=== PATIENT | male | born 1950 | race Caucasian/White ===

== ENCOUNTER 2020-09-28 13:02 | Outpatient (REF) | payer MEDICARE, SELFPAY ==
[2020-09-28 14:44] LABS: Hematocrit 44.2 % (42-52); Hemoglobin 15.1 g/dl (14.0-18.0); Mean Corpuscular HGB Conc 34.2 g/dl (31.0-36.0); Mean Corpuscular Volume 93.6 fL (80-98); Mean Platelet Volume 10.6 fL (9.4-12.4); Platelet Count 218 X10*3/uL (160-400); Red Blood Count 4.72 X10*6/uL (4.60-5.80); Red Cell Distribution Width 13.4 % (11.0-16.0); White Blood Count 5.8 X10*3/uL (4.8-10.8)
[2020-09-28 15:18] LABS: Anion Gap 14 (12-20); Blood Urea Nitrogen 20 mg/dL (9-16); Calcium 9.4 mg/dL (8.4-10.2); Carbon Dioxide 23 mmol/L (22-29); Chloride 106 mmol/L (96-108); Estimated Glomerular Filt Rate > 60; Glucose Random 80 mg/dL (60-115); Potassium 4.5 mmol/l (3.3-5.1); Sodium 138 mmol/L (135-145)
== END 2020-09-28 13:03 | disposition home or self-care (01) ==
LOC: HO.LAB 13:02
PROVIDERS: PCP Internal Medicine; Visit Provider Internal Medicine Cardiovascular Disease
DX: I48.20 Chronic atrial fibrillation, unspecified (principal); I35.1 Nonrheumatic aortic (valve) insufficiency; I10 Essential (primary) hypertension; I71.2 Thoracic aortic aneurysm, without rupture; Z79.899 Other long term (current) drug therapy
CPT/HCPCS: 36415; 80048; 85027; 93005; 99212

== ENCOUNTER 2020-12-10 09:30 | Outpatient (REF) | payer MEDICARE, SELFPAY ==
[2020-12-10 10:51] LABS: Anion Gap 12 (12-20); Blood Urea Nitrogen 26 mg/dL (9-16); Calcium 9.3 mg/dL (8.4-10.2); Carbon Dioxide 28 mmol/L (22-29); Chloride 106 mmol/L (96-108); Estimated Glomerular Filt Rate > 60; Glucose Random 98 mg/dL (60-115); Potassium 4.5 mmol/L (3.3-5.1); Sodium 141 mmol/L (135-145)
[2020-12-10 11:15] LABS: Prostate Specific Antigen 2.86 ng/mL (<0.05-4.0)
== END 2020-12-10 09:31 | disposition home or self-care (01) ==
LOC: HO.LAB 09:30
PROVIDERS: PCP Internal Medicine; Visit Provider Physician Assistant Surgical
DX: N40.0 Benign prostatic hyperplasia without lower urinary tract symptoms (principal); Z12.5 Encounter for screening for malignant neoplasm of prostate
CPT/HCPCS: 36415; 80048; 84153

== ENCOUNTER → 2021-04-04 08:22 | Outpatient (REF) | payer MEDICARE, SELFPAY ==
--- NOTE | 2021-04-04 08:25 | CA_ITS ---
Transthoracic Echocardiogram Patient (Last, First, Middle): Eric Ferreira, Gender: Male Date of : 1950 Age: 71 Procedure Date: 04/04/2021 Procedure Type: Transthoracic Echocardiogram Location: OP Height: 180.34 cm Weight: 88.45 kg BSA: 2.09 m2 Heart Rate: bpm BP: 125 / 78 mmHg Wine Fermenter: Michaela MD: Jose Carnes MD Compensation Associate: Jose Carnes MD Symptoms: I35.1 - Nonrheumatic aortic (valve) insufficiency Study Quality: Good ECG Rhythm: Atrial Fibrillation Conclusions: - 1. Normal LV systolic function with moderate LVH 2. Severely dilated left atrium 3. Moderate aortic regurgitation 4. Moderately dilated ascending aorta at 5 cm 5. Normal RV systolic pressure 6. No pericardial effusion Findings Left Ventricle Normal left ventricular size and systolic function. There is moderately increased left ventricular wall thickness. The visually estimated ejection fraction is between 55-60%. Diastolic function is indeterminate on the basis of available data. Right Ventricle Normal right ventricular cavity size and systolic function. Atria The left atrium is severely dilated. There is no evidence of interatrial shunt. The right atrium is moderately dilated. Aortic Valve The aortic valve structure and function is likely normal. There is no aortic valve stenosis. There is moderate aortic valve regurgitation. Mitral Valve There is mild anterior and posterior mitral leaflet thickening. There is mild to moderate mitral valve regurgitation. There is no mitral valve stenosis. Pulmonic Valve The pulmonic valve was not well visualized. Tricuspid Valve Likely normal tricuspid valve structure and function. There is mild tricuspid valve regurgitation. The right ventricular systolic pressure is normal. The right ventricular systolic pressure is 34 mmHg. Great Vessels The pulmonary artery was not well visualized. There is moderate dilatation of the ascending aorta measuring 5.00 cm. Venous The inferior vena cava is normal in size and collapses greater than 50% with inspiration. Pericardium/Pleural There is no evidence of pericardial effusion. Prior Study Comparison Changes noted compared to prior study dated: 03/09/2020. Ascending aorta is further dilated at 5 cm Measurements 2D Linear Measurements RVIDd: 3.30 RVIDd Index: 1.58 IVSd: 1.37 0.6-0.9/0.6-1.0 cm LVIDd: 6.03 3.9-5.3/4.2-5.9 cm LVIDd Index: 2.89 2.4-3.2/2.2-3.1 cm/m2 LVIDs: 4.43 2.0-3.6 cm LVPWd: 1.59 0.7-1.1 cm Ao Root: 4.50 2.1-3.5 cm LA Diam: 5.50 2.7-3.8/3.0-4.0 cm LAIDs Index: 2.63 1.5-2.3 cm/m2 LV Mass: 527.61 67-162/88-224 g LV Mass Index: 252.44 43-95/49-115 g/m2 LVOT Diam: 2.30 3.0+(-)1.3 cm 2D Systolic Function EF 4C: 60.90 >55% EF 2C: 44.70 >55% EF BiP: 53.10 >55% Mitral Valve MR Vol - PW Dopp: 21.36 MR VTI: 1.78 MR ERO: 12.00 MR Alias Darrel: 0.38 MR RAD: 0.50 Aortic Valve AoV Pk Darrel: 1.39 AoV Mn Darrel: 0.90 AoV VTI: 0.27 AoV Pk Grad: 8.00 Aov Mn Grad: 4.00 MARYBETH Cont.VTI: 3.47 AI Pk Darrel: 4.69 AI [place]: 2.28 LVOT LVOT Pk Darrel: 0.97 LVOT Mn Darrel: 0.69 LVOT VTI: 0.23 LVOT Pk Grad: 4.00 LVOT Mn Grad: 2.00 LVOT Diam: 2.30 LVOT Area: 4.15 Tricuspid Valve TR Pk Darrel: 2.78 TR Pk Grad: 31.00 RA Press: 3.00 RVSP: 34.00 Great Vessels Aorta Ao Root-2D: 4.50 2.0-3.7 cm Ao Asc: 5.00 2.1-3.4 cm Ao Arch: 3.40 Updated in Other Vendor System with Status of Final Jose Carnes MD electronically signed on 04/04/2021 5:53:49 PM with status of Final
== END ==
LOC: HO.CARD 08:22
PROVIDERS: Visit Provider Internal Medicine Cardiovascular Disease
DX: I35.1 Nonrheumatic aortic (valve) insufficiency (principal); I71.2 Thoracic aortic aneurysm, without rupture; I48.20 Chronic atrial fibrillation, unspecified
CPT/HCPCS: 93306

== ENCOUNTER 2021-04-11 08:43 | Outpatient (REF) | payer MEDICARE, SELFPAY ==
[2021-04-11 10:16] LABS: Anion Gap 13 (12-20); Blood Urea Nitrogen 28 mg/dL (9-16); Calcium 9.5 mg/dL (8.4-10.2); Carbon Dioxide 25 mmol/L (22-29); Chloride 106 mmol/L (96-108); Estimated Glomerular Filt Rate > 60; Glucose Random 100 mg/dL (60-115); Potassium 4.6 mmol/L (3.3-5.1); Sodium 139 mmol/L (135-145)
== END 2021-04-11 08:44 | disposition home or self-care (01) ==
LOC: HO.LAB 08:43
PROVIDERS: PCP Internal Medicine; Visit Provider Internal Medicine Cardiovascular Disease
DX: I71.2 Thoracic aortic aneurysm, without rupture (principal)
CPT/HCPCS: 36415; 80048

== ENCOUNTER 2021-04-15 08:07 | Outpatient (REF) | payer MEDICARE, SELFPAY ==
--- NOTE | ~2021-04-15 | CT_ITS ---
EXAMINATION: CT ANGIOGRAM CHEST CLINICAL INFORMATION: Thoracic aortic aneurysm. COMPARISON: None TECHNIQUE: Multiple axial images were obtained through the chest after the administration of 70 mL of Omnipaque 350 intravenous contrast. Extensive vascular post-processing including two-dimensional and three-dimensional reformatted images were created and reviewed on an independent workstation. This CT examination was performed using dose optimization techniques as appropriate, variously including the following: *Automated exposure control *Adjustment of mA and/or kV according to patient size (this includes techniques or standardized protocols for targeted exams where dose is matched to indication/reason for exam; i.e. extremities or head) *Use of iterative reconstruction technique DLP: 201 mGy-cm FINDINGS: The lungs are well expanded and clear of acute pneumonic process. No pulmonary nodule, mass or ground-glass density seen. There is a focal ill-defined opacity measuring 7 mm with adjacent plate-like atelectasis in the left lung base on axial image 416/9. The heart size is within normal limits. There is no pericardial effusion. The ascending aorta measures 4.7 x 4.8 cm on axial image 30/5, at the level of arch. Previously it measured 4.56 x 4.56 cm. There is a three-vessel branching arch with mild atherosclerosis at the origins of left subclavian and right brachiocephalic veins. Along the undersurface of the arch is a small outpouching, likely focal dissection/aneurysm. It is stable. It is less likely to represent duct diverticulum. The descending thoracic aorta is of normal caliber. Visualized upper abdominal aorta is normal caliber. The trachea and bronchial airways are patent. The thyroid lobes are symmetrical and normal. No abnormal-sized mediastinal or hilar lymph node or mass seen. There is no pericardial effusion. There is minimal coronary artery calcification. Imaging through the upper abdomen reveals visualized liver, spleen, pancreas and bilateral adrenal glands are unremarkable. Bone windows reveal no lytic or sclerotic process. There is mild ventral spondylosis mid and lower dorsal spine. CT/CT angio chest IMPRESSION: Known ascending aortic aneurysm as described above with minimal increase in size. Unusual bump along the undersurface of the thoracic arch likely a small dissection/flap from previous trauma. It is stable.
[2021-04-15] MEDS: iohexoL 350 MG/ML 100 ML INFUS..BTL IV (09:01)
== END 2021-04-15 08:08 | disposition home or self-care (01) ==
LOC: HO.CT 08:07
PROVIDERS: Visit Provider Internal Medicine Cardiovascular Disease
DX: I71.2 Thoracic aortic aneurysm, without rupture (principal)
CPT/HCPCS: 71275; Q9967

== ENCOUNTER → 2021-04-18 09:39 | Outpatient (BNVA) | payer MEDICARE, SELFPAY | PROVIDERS: PCP Internal Medicine; Referring Provider Internal Medicine; Visit Provider Internal Medicine Cardiovascular Disease | DX: I48.20 Chronic atrial fibrillation, unspecified (principal); I71.2 Thoracic aortic aneurysm, without rupture; I35.1 Nonrheumatic aortic (valve) insufficiency | CPT/HCPCS: 99212 ==

== ENCOUNTER 2021-04-20 07:43 | Outpatient (REF) | payer MEDICARE, SELFPAY ==
[2021-04-20 09:09] LABS: Alanine Aminotransferase 28 U/L (0-40); Aspartate Amino Transferase 24 U/L (5-37); Cholesterol 143 mg/dL; HDL Cholesterol 42 mg/dL; LDL Cholesterol Calculated 83 mg/dl; Triglycerides 94 mg/dL
== END 2021-04-20 07:44 | disposition home or self-care (01) ==
LOC: HO.LAB 07:43
PROVIDERS: PCP Internal Medicine; Visit Provider Nurse Practitioner Family
DX: I71.2 Thoracic aortic aneurysm, without rupture (principal)
CPT/HCPCS: 36415; 80061; 84450; 84460

== ENCOUNTER 2021-06-03 19:28 | Emergency (ER) | payer MEDICARE, SELFPAY | END 2021-06-03 21:08 | disposition left against medical advice (07) | PROVIDERS: Emergency Provider Emergency Medicine; PCP Internal Medicine | DX: R10.9 Unspecified abdominal pain (principal) ==

== ENCOUNTER 2021-10-03 09:20 | Outpatient (REF) | payer MEDICARE, SELFPAY ==
[2021-10-03 11:23] LABS: Anion Gap 9 (12-20); Blood Urea Nitrogen 18 mg/dL (9-16); Calcium 9.9 mg/dL (8.4-10.2); Carbon Dioxide 29 mmol/L (22-29); Chloride 107 mmol/L (96-108); Estimated Glomerular Filt Rate > 60; Glucose Random 85 mg/dL (60-115); Potassium 4.3 mmol/L (3.3-5.1); Sodium 141 mmol/L (135-145)
== END 2021-10-03 09:21 | disposition home or self-care (01) ==
LOC: HO.LAB 09:20
PROVIDERS: PCP Internal Medicine; Referring Provider Internal Medicine; Visit Provider Internal Medicine Cardiovascular Disease
DX: I48.20 Chronic atrial fibrillation, unspecified (principal); I71.2 Thoracic aortic aneurysm, without rupture
CPT/HCPCS: 36415; 80048; 93005; 99212

== ENCOUNTER 2021-11-29 09:04 | Outpatient (REF) | payer MEDICARE, SELFPAY ==
[2021-11-29 10:54] LABS: Prostate Specific Antigen 2.91 ng/mL (<0.05-4.0)
== END 2021-11-29 09:05 | disposition home or self-care (01) ==
LOC: HO.LAB 09:04
PROVIDERS: PCP Internal Medicine; Visit Provider Physician Assistant Surgical
DX: Z12.5 Encounter for screening for malignant neoplasm of prostate (principal); N40.1 Benign prostatic hyperplasia with lower urinary tract symptoms
CPT/HCPCS: 36415; 84153

== ENCOUNTER → 2022-03-23 10:30 | Outpatient (REF) | payer MEDICARE, SELFPAY ==
--- NOTE | 2022-03-23 10:33 | CA_ITS ---
Transthoracic Echocardiogram Patient (Last, First, Middle): Eric Ferreira, Gender: Male Date of : 1950 Age: 72 Procedure Date: 03/23/2022 Procedure Type: Transthoracic Echocardiogram Location: OP Height: 180.34 cm Weight: 88.45 kg BSA: 2.09 m2 Heart Rate: bpm BP: 124 / 72 mmHg Lead Network Architect: COLBY Referring MD: Jose Carnes MD Weaver Wire Loom: Jose Carnes MD Symptoms: I71.2 - Thoracic aortic aneurysm, without rupture Study Quality: Fair ECG Rhythm: Atrial Fibrillation Conclusions: - 1. Normal LV systolic function with moderate LVH 2. Severely dilated left atrium 3. Moderately dilated ascending aorta at 5 cm 4. Moderate aortic regurgitation mild mitral regurgitation 5. Normal RV systolic pressure 6. No pericardial effusion Findings Left Ventricle Normal left ventricular size and systolic function. There is moderately increased left ventricular wall thickness. The visually estimated ejection fraction is between 60-65%. Diastolic function is indeterminate on the basis of available data. Right Ventricle Normal right ventricular cavity size and systolic function. Atria The left atrium is severely dilated. There is no evidence of interatrial shunt. The right atrium is mildly dilated. Aortic Valve Normal aortic valve structure and function. There is no aortic valve stenosis. There is moderate aortic valve regurgitation. Mitral Valve There is mild anterior and posterior mitral leaflet thickening. There is mild mitral valve regurgitation. There is no mitral valve stenosis. Pulmonic Valve The pulmonic valve was not well visualized. There is trace to mild pulmonic valve regurgitation. Tricuspid Valve Normal tricuspid valve structure. There is mild tricuspid valve regurgitation. The right ventricular systolic pressure is normal. The right ventricular systolic pressure is 32 mmHg. Normal right atrial pressure. There is no evidence of pulmonary hypertension. Great Vessels The pulmonary artery was not well visualized. There is moderate dilatation of the ascending aorta measuring 5.00 cm. Venous The inferior vena cava is normal in size and collapses greater than 50% with inspiration. Pericardium/Pleural There is no evidence of pericardial effusion. Prior Study Comparison No significant change compared to prior study dated: 04/04/2021. Measurements 2D Linear Measurements IVSd: 1.39 0.6-0.9/0.6-1.0 cm LVIDd: 5.49 3.9-5.3/4.2-5.9 cm LVIDd Index: 2.63 2.4-3.2/2.2-3.1 cm/m2 LVIDs: 3.62 2.0-3.6 cm LVPWd: 1.59 0.7-1.1 cm LA Diam: 5.60 2.7-3.8/3.0-4.0 cm LAIDs Index: 2.68 1.5-2.3 cm/m2 LV Mass: 459.86 67-162/88-224 g LV Mass Index: 220.03 43-95/49-115 g/m2 LVOT Diam: 2.30 3.0+(-)1.3 cm 2D Systolic Function EF 4C: 64.70 >55% EF 2C: 62.20 >55% EF BiP: 64.50 >55% Aortic Valve AoV Pk Darrel: 1.13 AoV Mn Darrel: 0.87 AoV VTI: 0.23 AoV Pk Grad: 5.00 Aov Mn Grad: 3.00 MARYBETH Cont.VTI: 3.99 AI Pk Darrel: 4.64 AI Bath: 2.83 LVOT LVOT Pk Darrel: 1.05 LVOT Mn Darrel: 0.71 LVOT VTI: 0.23 LVOT Pk Grad: 4.00 LVOT Mn Grad: 2.00 LVOT Diam: 2.30 LVOT Area: 4.15 Tricuspid Valve TR Pk Darrel: 2.68 TR Pk Grad: 29.00 RA Press: 3.00 RVSP: 32.00 Great Vessels Aorta Sinus of Valsalva: 4.87 2.0-3.5 cm Ao Asc: 5.00 2.1-3.4 cm Ao Arch: 3.30 Updated in Other Vendor System with Status of Final Jose Carnes MD electronically signed on 03/23/2022 12:43:02 PM with status of Final
== END ==
LOC: HO.CARD 10:30
PROVIDERS: Visit Provider Internal Medicine Cardiovascular Disease
DX: I71.2 Thoracic aortic aneurysm, without rupture (principal)
CPT/HCPCS: 93306

== ENCOUNTER 2022-04-10 09:05 | Outpatient (REF) | payer MEDICARE, SELFPAY ==
[2022-04-10 11:08] LABS: Anion Gap 12 (12-20); Blood Urea Nitrogen 20 mg/dL (9-16); Calcium 9.2 mg/dL (8.4-10.2); Carbon Dioxide 25 mmol/L (22-29); Chloride 106 mmol/L (96-108); Estimated Glomerular Filt Rate > 60; Glucose Random 94 mg/dL (60-115); Potassium 4.6 mmol/L (3.3-5.1); Sodium 138 mmol/L (135-145)
== END 2022-04-10 09:06 | disposition home or self-care (01) ==
LOC: HO.LAB 09:05
PROVIDERS: PCP Internal Medicine; Referring Provider Internal Medicine; Visit Provider Internal Medicine Cardiovascular Disease
DX: I48.20 Chronic atrial fibrillation, unspecified (principal); I71.2 Thoracic aortic aneurysm, without rupture
CPT/HCPCS: 36415; 80048; 99212

== ENCOUNTER 2022-10-17 07:34 | Outpatient (REF) | payer MEDICARE, SELFPAY ==
[2022-10-17 09:11] LABS: Prostate Specific Antigen 1.95 ng/mL (<0.05-4.0)
== END 2022-10-17 07:35 | disposition home or self-care (01) ==
LOC: HO.LAB 07:34
PROVIDERS: PCP Internal Medicine; Visit Provider Physician Assistant
DX: Z12.5 Encounter for screening for malignant neoplasm of prostate (principal); N40.1 Benign prostatic hyperplasia with lower urinary tract symptoms
CPT/HCPCS: 36415; 84153

== ENCOUNTER → 2023-03-30 07:48 | Outpatient (REF) | payer MEDICARE, SELFPAY ==
--- NOTE | 2023-03-30 07:52 | CA_ITS ---
Transthoracic Echocardiogram Patient (Last, First, Middle): Eric Ferreira, Gender: Male Date of : 1950 Age: 73 Procedure Date: 03/30/2023 Procedure Type: Transthoracic Echocardiogram Location: OP Height: 180.34 cm Weight: 90.72 kg BSA: 2.11 m2 Heart Rate: 74 bpm BP: 128 / 74 mmHg Analytical Clerk: AFSHIN Referring MD: Jose Carnes MD Manager [employer] Fund: Jose Carnes MD Symptoms: I71.2 - Thoracic aortic aneurysm, without rupture Study Quality: Adequate ECG Rhythm: Atrial Fibrillation Conclusions: - 1. Normal LV systolic function with moderate LVH 2. Severe left atrial enlargement 3. Moderately dilated ascending aorta at 5.1 cm 4. Moderate aortic regurgitation and mild mitral regurgitation 5. Normal RV systolic pressure 6. No gross pericardial effusion Findings Left Ventricle Normal left ventricular size and systolic function. There is moderately increased left ventricular wall thickness. The visually estimated ejection fraction is between 55-60%. Diastolic function is indeterminate on the basis of available data. Right Ventricle Normal right ventricular cavity size and systolic function. Atria The left atrium is severely dilated. There is no evidence of interatrial shunt. The right atrium is moderately dilated. Aortic Valve Normal aortic valve structure and function. There is no aortic valve stenosis. There is moderate aortic valve regurgitation. Mitral Valve There is mild anterior and posterior mitral leaflet thickening. There is mild mitral valve regurgitation. There is no mitral valve stenosis. Pulmonic Valve The pulmonic valve is likely normal. There is trace pulmonic valve regurgitation. Tricuspid Valve Normal tricuspid valve structure. There is no tricuspid valve regurgitation. The right ventricular systolic pressure is normal. The right ventricular systolic pressure is 21 mmHg. Normal right atrial pressure. There is no evidence of pulmonary hypertension. Great Vessels The pulmonary artery was not well visualized. There is moderate dilatation of the ascending aorta measuring 5.10 cm. Venous The inferior vena cava is normal in size and collapses greater than 50% with inspiration. Pericardium/Pleural There is no evidence of pericardial effusion. Prior Study Comparison No significant change compared to prior study dated: 03/23/2022. Measurements 2D Linear Measurements IVSd: 1.46 0.6-0.9/0.6-1.0 cm LVIDd: 5.36 3.9-5.3/4.2-5.9 cm LVIDd Index: 2.54 2.4-3.2/2.2-3.1 cm/m2 LVIDs: 4.21 2.0-3.6 cm LVPWd: 1.51 0.7-1.1 cm LA Diam: 4.90 2.7-3.8/3.0-4.0 cm LAIDs Index: 2.32 1.5-2.3 cm/m2 LV Mass: 402.85 67-162/88-224 g LV Mass Index: 190.92 43-95/49-115 g/m2 LVOT Diam: 2.40 3.0+(-)1.3 cm 2D Systolic Function EF 4C: 44.60 >55% EF 2C: 53.50 >55% Mitral Valve MV Pk E: 0.70 Aortic Valve AoV Pk Darrel: 1.37 AoV Mn Darrel: 0.96 AoV VTI: 0.28 AoV Pk Grad: 8.00 Aov Mn Grad: 4.00 MARYBETH Cont.VTI: 3.33 AI Pk Darrel: 4.47 AI [place]: 2.45 LVOT LVOT Pk Darrel: 1.07 LVOT Mn Darrel: 0.71 LVOT VTI: 0.21 LVOT Pk Grad: 5.00 LVOT Mn Grad: 2.00 LVOT Diam: 2.40 LVOT Area: 4.52 Diastolic Function MV Pk E: 0.70 Right Ventricle TAPSE (mm): 20.00 TVS' Darrel: 8.17 Tricuspid Valve TR Pk Darrel: 2.14 TR Pk Grad: 18.00 RA Press: 3.00 RVSP: 21.00 Great Vessels Aorta Sinus of Valsalva: 4.80 2.0-3.5 cm Ao Asc: 5.10 2.1-3.4 cm Pulmonary Valve PV Pk Darrel: 0.63 Peak PV Grad: 2.00 Updated in Other Vendor System with Status of Final Jose Carnes MD electronically signed on 03/31/2023 10:35:01 AM with status of Final
== END ==
LOC: HO.CARD 07:48
PROVIDERS: PCP Internal Medicine; Visit Provider Internal Medicine Cardiovascular Disease
DX: I71.20 Thoracic aortic aneurysm, without rupture, unspecified (principal)
CPT/HCPCS: 93306

== ENCOUNTER 2023-04-16 09:21 | Outpatient (REF) | payer MEDICARE, SELFPAY ==
[2023-04-16 10:46] LABS: Hematocrit 46.3 % (42.0-52.0); Hemoglobin 15.1 g/dl (14.0-18.0); Mean Corpuscular HGB Conc 32.6 g/dl (31.0-36.0); Mean Corpuscular Hemoglobin 30.8 pg (27.0-33.0); Mean Corpuscular Volume 94.5 fL (80.0-98.0); Mean Platelet Volume 10.4 fL (9.4-12.4); Platelet Count 215 X10*3/uL (160-400); Red Cell Distribution Width 13.6 % (11.0-16.0); White Blood Count 7.9 X10*3/uL (4.8-10.8)
[2023-04-16 11:54] LABS: Anion Gap 12 (12-20); Blood Urea Nitrogen 20 mg/dL (9-16); Calcium 10.1 mg/dL (8.4-10.2); Carbon Dioxide 25 mmol/L (22-29); Chloride 106 mmol/L (96-108); Estimated Glomerular Filt Rate > 60; Glucose Random 97 mg/dL (60-115); Potassium 4.4 mmol/L (3.3-5.1); Sodium 139 mmol/L (135-145)
== END 2023-04-16 09:22 | disposition home or self-care (01) ==
LOC: HO.LAB 09:21
PROVIDERS: PCP Internal Medicine; Referring Provider Internal Medicine; Visit Provider Internal Medicine Cardiovascular Disease
DX: I48.20 Chronic atrial fibrillation, unspecified (principal); I10 Essential (primary) hypertension; I71.20 Thoracic aortic aneurysm, without rupture, unspecified
CPT/HCPCS: 36415; 80048; 85027; 93005; 99212

== ENCOUNTER 2023-09-28 09:34 | Outpatient (REF) | payer MEDICARE, SELFPAY ==
[2023-09-28 11:19] LABS: Prostate Specific Antigen 2.33 ng/mL (<0.05-4.0)
== END 2023-09-28 09:35 | disposition home or self-care (01) ==
LOC: HO.LAB 09:34
PROVIDERS: PCP Internal Medicine; Visit Provider Physician Assistant
DX: Z12.5 Encounter for screening for malignant neoplasm of prostate (principal); N40.1 Benign prostatic hyperplasia with lower urinary tract symptoms
CPT/HCPCS: 36415; 84153

== ENCOUNTER → 2024-04-10 07:46 | Outpatient (REF) | payer MEDICARE, SELFPAY ==
--- NOTE | 2024-04-10 07:49 | CA_ITS ---
Transthoracic Echocardiogram Patient (Last, First, Middle): Eric Ferreira, Gender: Male Date of : 1950 Age: 74 Procedure Date: 04/10/2024 Procedure Type: Transthoracic Echocardiogram Location: OP Height: 180.34 cm Weight: 86.18 kg BSA: 2.06 m2 Heart Rate: bpm BP: 120 / 58 mmHg Vocal Music Instructor: TO Referring MD: Jose Carnes MD Symptoms: I71.2 - Thoracic aortic aneurysm, without rupture Study Quality: Adequate ECG Rhythm: Atrial Fibrillation Conclusions: - The left ventricular systolic function is low normal. The visually estimated ejection fraction is between 50-55%. - Moderate to severe concentric left ventricular hypertrophy; severe in the septum. - Severe biatrial enlargement. - There is mild aortic valve regurgitation. - There is moderate dilatation of the sinuses of Valsalva measuring 4.91 cm, moderate dilatation of the sino tubular ridge measuring 4.86 cm, severe dilatation of the ascending aorta measuring 5.30 cm, and no dilatation of the aortic arch measuring 3.20 cm. Findings Left Ventricle Normal left ventricular cavity size. The left ventricular systolic function is low normal. The visually estimated ejection fraction is between 50-55%. There is no evidence of regional wall motion abnormalities. Diastolic function is indeterminate on the basis of available data. Moderate to severe concentric left ventricular hypertrophy; severe in the septum. Right Ventricle Mildly increased right ventricular cavity size. There is normal right ventricular systolic function. Atria Severe biatrial enlargement. Interatrial shunt cannot be excluded. Aortic Valve There is a normal trileaflet aortic valve. There is mild calcification of the aortic valve. There is no aortic valve stenosis. There is mild aortic valve regurgitation. Mitral Valve The mitral valve appears normal. There is mild mitral valve regurgitation. There is no mitral valve stenosis. Pulmonic Valve There is trace pulmonic valve regurgitation. Tricuspid Valve There is mild tricuspid valve regurgitation. There is no evidence of pulmonary hypertension. Great Vessels The aortic arch is normal in size. There is moderate dilatation of the sinuses of Valsalva measuring 4.91 cm, moderate dilatation of the sino tubular ridge measuring 4.86 cm, severe dilatation of the ascending aorta measuring 5.30 cm, and no dilatation of the aortic arch measuring 3.20 cm. Venous The inferior vena cava is mildly dilated and collapses greater than 50% with inspiration. Pericardium/Pleural There is no evidence of pericardial effusion. Prior Study Comparison Changes noted compared to prior study dated: 03/30/2023. Increase in ascending aortic size. Measurements 2D Linear Measurements IVSd: 1.92 0.6-0.9/0.6-1.0 cm LVIDd: 5.19 3.9-5.3/4.2-5.9 cm LVIDd Index: 2.52 2.4-3.2/2.2-3.1 cm/m2 LVIDs: 3.37 2.0-3.6 cm LVPWd: 1.44 0.7-1.1 cm LA Diam: 3.90 2.7-3.8/3.0-4.0 cm LAIDs Index: 1.89 1.5-2.3 cm/m2 LV Mass: 504.64 67-162/88-224 g LV Mass Index: 244.97 43-95/49-115 g/m2 LVOT Diam: 2.40 3.0+(-)1.3 cm 2D Systolic Function EF 4C: 52.30 >55% EF 2C: 56.40 >55% EF BiP: 54.20 >55% Mitral Valve MV Pk E: 0.80 MV Decel Time: 177.00 E'Lateral: 9.92 E'Medial: 5.40 E/E' Med: 14.80 E/E' Lat: 8.00 PHT: 52.00 MVA PHT: 4.23 Decel Scurry: 4.53 Aortic Valve AoV Pk Darrel: 1.22 AoV Pk Grad: 6.00 AI Pk Darrel: 4.34 AI VTI: 1.82 AI Scurry: 2.84 AI Alias Darrel: 0.33 AI RV - PISA: 71.00 ERO - PISA: 39.00 LVOT LVOT Pk Darrel: 0.93 LVOT Mn Darrel: 0.64 LVOT VTI: 0.20 LVOT Pk Grad: 3.00 LVOT Mn Grad: 2.00 LVOT Diam: 2.40 LVOT Area: 4.52 Diastolic Function MV Pk E: 0.80 E'Medial: 5.40 E/E' Med: 14.80 E' Laterial: 9.92 E/E' Lat: 8.00 Right Ventricle TAPSE (mm): 18.30 TVS' Darrel: 11.70 Tricuspid Valve TR Pk Darrel: 2.37 TR Pk Grad: 22.00 RA Press: 8.00 RVSP: 30.00 Great Vessels Aorta Sinus of Valsalva: 4.91 2.0-3.[address] Ridge: 4.86 1.7-3.4 cm Ao Asc: 5.30 2.1-3.4 cm Ao Arch: 3.20 Updated in Other Vendor System with Status of Final Berry Warner MD electronically signed on 04/12/2024 11:19:59 AM with status of Final
== END ==
LOC: HO.CARD 07:46
PROVIDERS: PCP Internal Medicine; Visit Provider Internal Medicine Cardiovascular Disease
DX: I71.20 Thoracic aortic aneurysm, without rupture, unspecified (principal)
CPT/HCPCS: 93306

== ENCOUNTER → 2024-04-10 07:49 | Outpatient (BNV) | payer MEDICARE, SELFPAY | PROVIDERS: PCP Internal Medicine; Visit Provider Internal Medicine | DX: I35.1 Nonrheumatic aortic (valve) insufficiency (principal); I34.0 Nonrheumatic mitral (valve) insufficiency; I36.1 Nonrheumatic tricuspid (valve) insufficiency; I51.7 Cardiomegaly | CPT/HCPCS: 93306 ==

== ENCOUNTER 2024-04-16 12:53 | Outpatient (AMB) | payer MEDICARE, SELFPAY ==
--- NOTE | 2024-04-16 12:57 | A.OFFVIS_ITS ---
Vital Signs 04/16/24 12:58 Height 5 ft 11 in Weight 209 lb 7.026 oz BMI 29.2 BP 120/66 Blood Pressure Location Lt brachial Position Sitting Pulse 83 Intake Visit Reasons: 1 yr fu after echo Intake Note: 1 year follow-up after echo with ekg hearts doing good Allergies amoxicillin [Augmentin] Allergy (Unknown, Verified 04/16/23 09:41) nausea and vomiting clavulanic acid [Augmentin] Allergy (Unknown, Verified 04/16/23 09:41) nausea and vomiting No Known Allergies Allergy (Verified 04/16/23 09:41) Medication List - Last Reconciled 04/16/24 by Jose Carnes MD atorvastatin 20 mg PO DAILY diltiazem HCl CD 120 mg PO DAILY 90 days finasteride 5 mg PO DAILY lisinopril 20 mg PO DAILY 90 days metoprolol tartrate 100 mg PO BID rivaroxaban (Xarelto) 20 mg PO DAILY 90 days HPI Comments Details: Eric Comes for follow-up. He has no new cardiac symptoms. Denies any exertional chest pain or worsening shortness of breath. Denies any orthopnea, PND, leg edema. Denies any lightheadedness, syncope. No prolonged palpitation irregular heartbeat. No major bleeding issues or neurologic events. Recent echocardiogram shows enlargement of his ascending aorta at 5.3 cm which is bigger than in the past. [facility] Medical History Chronic atrial fibrillation Ascending aortic aneurysm HTN (hypertension) Aortic regurgitation Surgical History History of hernia surgery History of tonsillectomy Family History Father No problems noted. Mother Diabetes Review of Systems Const Denies chills, Denies fatigue, Denies fever(s), Denies frequent falls, Denies weakness, Denies weight gain and Denies weight loss ENT Denies dizziness Card Denies chest pain, Denies leg edema, Denies lightheadedness, Denies palpitations, Denies dyspnea, Denies dyspnea on exertion, Denies orthopnea and Denies other (loss of consciousness) Resp Denies cough, Denies dyspnea and Denies dyspnea on exertion GI Denies hematochezia and Denies change in stool character Musc Denies abnormal gait, Denies muscle weakness, Denies numbness, Denies radiating pain into limb and Denies tingling Neuro Denies abnormal gait, Denies dizziness, Denies frequent falls, Denies numbness, Denies tingling and Denies weakness Endo Denies fatigue and Denies palpitations Physical Exam Vital Signs: Last Vital Signs Pulse 83 04/16/24 12:58 BP 120/66 04/16/24 12:58 BMI result Body Mass Index 29.2 Const General: cooperative, comfortable, no acute distress, alert and awake Nutritional Appearance: overweight Orientation/consciousness: patient oriented x3 Limitations: no limitations Neck Neck: Yes trachea midline, Yes supple and Yes no JVD Resp Effort & Inspection: normal respiratory effort Auscultation: clear to auscultation bilaterally Cardio Jugular venous distension: no JVD Rhythm: abnormal rhythm irregularly irregular Heart sounds: S1 normal heart sound present, S2 normal heart sound present and Murmur heart sound present diastolic blowing GI Auscultation: normal bowel sounds Skin General skin exam: no rashes or lesions noted Neuro General: patient oriented x3 and no focal motor deficits Extrem General: Yes no clubbing, cyanosis or edema Psych Appearance: grossly normal Office Procedures EKG Details: EKG shows atrial fibrillation with LVH with nonspecific ST-T changes 74104-[id number], Complete Assessment & Plan Assessment & Plan (1) Ascending aortic aneurysm: Code(s): I71.2 - Thoracic aortic aneurysm, without rupture Category: Medical Plan: Ascending aortic aneurysm with moderate to severe enlargement of the ascending aorta at 5.3 cm. Has increase in size over the last year. Will follow-up with a chest CTA aortogram. Advise management. Continue current metoprolol and Cardizem therapy. Advised to seek emergency care for sudden-onset severe chest pain. Advised to avoid any sudden strenuous isometric exercise. Will refer him to cardiac surgery for further evaluation for possible repair in near future. If the ascending aorta confirms the size below 5.5 cm will follow-up echocardiogram in 6 months time. Management was discussed with him. Thank you for allowing me to partake in his care (2) Chronic atrial fibrillation: Code(s): I48.20 - Chronic atrial fibrillation, unspecified Category: Medical Plan: Chronic rate control atrial fibrillation. Continue to pursue rate control approach. Continue full oral anticoagulation, currently on Xarelto 20 mg daily. Semi annual renal function and annual CBC should be checked. Has done well with rate control approach and likelihood of pursuing rhythm control approach is very low. Will follow up in the clinic in 6 months time, sooner p.r.n.. Thank you for allowing me to partake in his care Orders: Orders Basic Metabolic Panel Today I71.2 - Thoracic aortic aneurysm, without rupture Complete Blood Count no Diff Today I71.2 - Thoracic aortic aneurysm, without rupture CT angio chest aorta Today I71.2 - Thoracic aortic aneurysm, without rupture Coding Level of Care Code Est Pt Level 4 (88401) Diagnoses Ascending aortic aneurysm I71.2 Chronic atrial fibrillation I48.20 CPT Codes EKG - CPT: 73843-[id number], Complete ([id number])
[2024-04-16 12:58] VITALS: BP 120/66; PULSE 83; BMI 29.2
== END 2024-04-16 13:33 | disposition home or self-care (01) ==
PROVIDERS: PCP Internal Medicine; Visit Provider Internal Medicine Cardiovascular Disease
DX: I71.20 Thoracic aortic aneurysm, without rupture, unspecified (principal); I48.20 Chronic atrial fibrillation, unspecified
CPT/HCPCS: 93010; 99214

== ENCOUNTER → 2024-04-16 12:53 | Outpatient (BNVA) | payer MEDICARE, SELFPAY | PROVIDERS: PCP Internal Medicine; Visit Provider Internal Medicine Cardiovascular Disease | DX: I71.21 Aneurysm of the ascending aorta, without rupture (principal); I48.20 Chronic atrial fibrillation, unspecified | CPT/HCPCS: 93005; 99212 ==

== ENCOUNTER 2024-04-22 08:14 | Outpatient (REF) | payer MEDICARE, SELFPAY ==
[2024-04-22 09:08] LABS: Hematocrit 39.3 % (42.0-52.0); Mean Corpuscular HGB Conc 33.1 g/dl (31.0-36.0); Mean Corpuscular Hemoglobin 31.3 pg (27.0-33.0); Mean Corpuscular Volume 94.7 fL (80.0-98.0); Mean Platelet Volume 9.4 fL (9.4-12.4); Platelet Count 298 X10*3/uL (160-400); Red Blood Count 4.15 X10*6/uL (4.60-5.80); Red Cell Distribution Width 12.8 % (11.0-16.0); White Blood Count 6.1 X10*3/uL (4.8-10.8)
[2024-04-22 09:30] LABS: Anion Gap 13 (12-20); Blood Urea Nitrogen 22 mg/dL (9-16); Calcium 9.6 mg/dL (8.4-10.2); Carbon Dioxide 27 mmol/L (22-29); Chloride 105 mmol/L (96-108); Estimated Glomerular Filt Rate > 60; Glucose Random 95 mg/dL (60-115); Potassium 4.6 mmol/L (3.3-5.1); Sodium 140 mmol/L (135-145)
== END 2024-04-22 08:15 | disposition home or self-care (01) ==
LOC: HO.LAB 08:14
PROVIDERS: PCP Internal Medicine; Visit Provider Internal Medicine Cardiovascular Disease
DX: I48.20 Chronic atrial fibrillation, unspecified (principal); I71.20 Thoracic aortic aneurysm, without rupture, unspecified
CPT/HCPCS: 36415; 80048; 85027

== ENCOUNTER 2024-04-24 13:45 | Outpatient (REF) | payer MEDICARE, SELFPAY ==
--- NOTE | ~2024-04-24 | CT_ITS ---
EXAMINATION: CT ANGIOGRAM CHEST CLINICAL INFORMATION: Thoracic aortic aneurysm COMPARISON: CTA chest 04/15/2021 TECHNIQUE: Multiple axial images were obtained through the chest after the administration of 70 mL of intravenous may take. Images were evaluated on independent dedicated 3-D workstation and 3-D images were reconstructed with concurrent radiologist supervision and subsequently interpreted. This CT examination was performed using dose optimization techniques as appropriate, variously including the following: *Automated exposure control. *Adjustment of mA and/or kV according to patient size (this includes techniques or standardized protocols for targeted exams where dose is matched to indication/reason for exam, i.e., extremities or head). *Use of iterative reconstruction technique. DLP: 224 mGy-cm. FINDINGS: VASCULAR: Thoracic Aorta: The sinotubular junction measures 4.9 cm. The ascending aorta measures 4.9 cm. Prominent ductus bump versus penetrating ulcer is unchanged. Subclavian Arteries: Patent and normal in caliber Carotid and Vertebral Arteries: Patent and normal in caliber Abdominal Aorta: Normal in caliber Pulmonary arteries: Patent, normal caliber without evidence of large, central pulmonary embolus All vascular measurements obtained from 3-D reconstructed images are detailed in PACS. NON-VASCULAR: Lungs: The lungs are clear with no evidence of inflammation or nodules. Mediastinum: The mediastinum is normal. Central vascular structures are unremarkable. No hilar or mediastinal lymphadenopathy. Pericardium/Pleura: There is no significant effusion. No pleural mass or thickening. Chest Wall/Axilla: Unremarkable. Upper Abdomen: Unremarkable Osseous Structures: Unremarkable. CT/CT angio chest aorta IMPRESSION: Dilatation of the aortic root, and ascending aorta which measures 4.9 cm in diameter. This is slightly larger than 2020 when it measured up to 4.8 cm
[2024-04-24] MEDS: iohexoL 350 MG/ML 75 ML INFUS..BTL 70 ML IV (14:16)
== END 2024-04-24 13:46 | disposition home or self-care (01) ==
LOC: HO.CT 13:45
PROVIDERS: PCP Internal Medicine; Visit Provider Internal Medicine Cardiovascular Disease
DX: I71.20 Thoracic aortic aneurysm, without rupture, unspecified (principal)
CPT/HCPCS: 71275; Q9967

== ENCOUNTER 2024-07-23 01:23 | Emergency (ER) | payer MEDICARE, SELFPAY ==
[2024-07-23 01:25] VITALS: BP 174/77; PULSE 78; RESP 18; TEMP 36.8; O2SAT 98; BMI 27.2
[2024-07-23 01:50] LABS: MANUAL DIFF FLAG NO
[2024-07-23 01:52] LABS: Basophils Absolute Auto 0.1 X10*3/uL (0.0-0.2); Basophils Percent Auto 0.7 % (0-2); Eosinophils Absolute Auto 0.1 X10*3/uL (0.0-0.4); Eosinophils Percent Auto 1.4 % (0-4); Hemoglobin 14.5 g/dl (14.0-18.0); Imm Gran Abs Auto 0.04 X10*3/uL (0.00-0.03); Imm Gran Pct Auto 0.5 % (0.0-0.4); Lymphocytes Absolute Auto 2.6 X10*3/uL (1.2-4.9); Lymphocytes Percent Auto 32.4 % (20-40); Mean Corpuscular HGB Conc 33.7 g/dl (31.0-36.0); Mean Corpuscular Hemoglobin 31.3 pg (27.0-33.0); Mean Corpuscular Volume 92.9 fL (80.0-98.0); Mean Platelet Volume 9.5 fL (9.4-12.4); Monocytes Absolute Auto 0.8 X10*3/uL (0.1-1.2); Monocytes Percent Auto 9.9 % (2-11); Neutrophils Absolute Auto 4.5 x10*3/uL (2.0-8.3); Neutrophils Percent Auto 55.1 % (45-73); Platelet Count 239 X10*3/uL (160-400); Red Blood Count 4.63 X10*6/uL (4.60-5.80); Red Cell Distribution Width 13.8 % (11.0-16.0); White Blood Count 8.1 X10*3/uL (4.8-10.8)
[2024-07-23 02:18] LABS: Alanine Aminotransferase 99 U/L (0-40); Alkaline Phosphatase 104 U/L (39-117); Anion Gap 13 (12-20); Aspartate Amino Transferase 45 U/L (5-37); Bilirubin Total 0.5 mg/dL (0.0-1.0); Blood Urea Nitrogen 33 mg/dL (9-16); C Reactive Protein 0.21 mg/dL (< or = 0.50); Carbon Dioxide 27 mmol/L (22-29); Chloride 106 mmol/L (96-108); Creatinine Clr Calc Pharmacy 53.5; Estimated Glomerular Filt Rate 56; Glucose Random 97 mg/dL (60-115); Potassium 4.5 mmol/L (3.3-5.1); Sodium 141 mmol/L (135-145); Total Protein 6.4 g/dL (6.5-8.0)
[2024-07-23 02:34] VITALS: BP 176/62; PULSE 77; RESP 16; TEMP 36.9; O2SAT 98
--- NOTE | 2024-07-23 02:36 | ED.GENADULT ---
HPI - General Adult General Chief complaint: Extremity Injury, Lower Stated complaint: gout Time Seen by Provider: 07/23/24 02:30 Source: patient Mode of arrival: ambulatory Limitations: no limitations History of Present Illness ED Provider: warren BARLOW narrative: Patient's history of atrial fibrillation on Xarelto and gout been having pain in the left 1st metatarsal joint for last 1 week taken a course of prednisone for 5 days with improvement after finishing prednisone started having the pain again patient can not take NSAIDs or colchicine pain is localized to left 1st metatarsal joint with slight erythema also in the left ankle no other joints involved Related Data Previous Rx's ?Medication ?Instructions ?Recorded finasteride 5 mg tablet 5 mg PO DAILY #30 tabs 01/13/22 atorvastatin 20 mg tablet 20 mg PO DAILY #90 tabs 07/26/23 lisinopril 20 mg tablet 20 mg PO DAILY 90 days #90 tabs 10/23/23 metoprolol tartrate 100 mg tablet 100 mg PO BID #180 tabs 10/23/23 rivaroxaban 20 mg tablet (Xarelto) 20 mg PO DAILY 90 days #90 tabs 05/12/24 diltiazem HCl 120 mg 120 mg PO DAILY 90 days #90 caps 07/14/24 capsule,extended release 24 hr prednisone 10 mg tablet 10 mg PO DIRECTED #30 tabs 07/23/24 Allergies Allergy/AdvReac Type Severity Reaction Status Date / Time amoxicillin [Augmentin] Allergy Unknown nausea and Verified 07/23/24 01:30 vomiting clavulanic acid [Augmentin] Allergy Unknown nausea and Verified 07/23/24 01:30 vomiting oxycodone AdvReac Confusion Verified 07/23/24 01:30 Review of Systems Review of Systems: Yes all other systems are reviewed and are negative [facility] Past Medical History Medical History Chronic atrial fibrillation Ascending aortic aneurysm HTN (hypertension) Aortic regurgitation Surgical History History of hernia surgery History of tonsillectomy Family History Family History Father No problems noted. Mother Diabetes Social History Social History Smoked in Last 30 Days: No Use of substances other than those prescribed or required for medical reasons: No Advance Directives: Yes Advance Directives Information Provided: No Advance Directives on File: No Do you have a plan to hurt others: No Plan Physical Exam ED Vital Signs: Vital Signs - 24 hr 07/23/24 01:25 07/23/24 02:34 07/23/24 03:00 Temperature 98.2 F 98.5 F 98.5 F Pulse Rate 78 77 77 Respiratory Rate 18 16 16 Blood Pressure 174/77 H 176/62 H 176/62 H Pulse Oximetry 98 98 98 Oxygen Delivery Method Room Air Room Air Room Air BMI result Body Mass Index 27.2 Appearance: Alert. Oriented X3. No acute distress. ENT: Pharynx normal. Oral Mucosa moist Neck: Normal inspection. Neck supple. CVS: Normal heart rate and rhythm. Pulses normal. Respiratory: No respiratory distress. Equal air entry bilateral, no wheezing/rales/rhonchi Abdomen: Soft and nontender. Bowel sounds are present, Skin: Skin warm and dry. Normal skin color. Normal skin turgor. Extremities: Tenderness with redness of left 1st metatarsal joint also soft tissue swelling of left ankle no calf tenderness Neuro: Oriented X 3. No motor deficit. Medications Administered Discontinued Medications Generic Name Dose Route Start Last Admin Trade Name Erickq PRN Reason Stop Dose Admin Dexamethasone 10 mg 07/23/24 02:46 07/23/24 02:54 Dexamethasone 2 Mg Tablet PO 07/23/24 02:47 10 mg ONCE ONE Administration Medical Decision Making Medical Decision Making MDM Narrative: Patient's gouty arthritis allergic to colchicine can not take NSAIDs will give him course of prednisone Lab Data [facility] Lab Attestation statement: I reviewed the patient's lab results. 07/23/24 01:46 07/23/24 01:46 Labs: Lab Results 07/23/24 Range/Units 01:46 WBC 8.1 (4.8-10.8) X10*3/uL RBC 4.63 (4.60-5.80) X10*6/uL Hgb 14.5 (14.0-18.0) g/dl Hct 43.0 (42.0-52.0) % MCV 92.9 (80.0-98.0) fL MCH 31.3 (27.0-33.0) pg MCHC 33.7 (31.0-36.0) g/dl RDW 13.8 (11.0-16.0) % Plt Count 239 (160-400) X10*3/uL MPV 9.5 (9.4-12.4) fL Immature Gran % (Auto) 0.5 H (0.0-0.4) % Neut % (Auto) 55.1 (45-73) % Lymph % (Auto) 32.4 (20-40) % [place] % (Auto) 9.9 (2-11) % Eos % (Auto) 1.4 (0-4) % Baso % (Auto) 0.7 (0-2) % Lymph # (Auto) 2.6 (1.2-4.9) X10*3/uL [place] # (Auto) 0.8 (0.1-1.2) X10*3/uL Eos # (Auto) 0.1 (0.0-0.4) X10*3/uL Baso # (Auto) 0.1 (0.0-0.2) X10*3/uL Abs Immat Gran (auto) 0.04 H (0.00-0.03) X10*3/uL Absolute Neuts (auto) 4.5 (2.0-8.3) x10*3/uL Absolute Nucleated RBC 0.000 (0.0-0.012) X10*3/uL Nucleated RBC % (auto) 0.0 (0.0-0.2) /100WBC Sodium 141 (135-145) mmol/L Potassium 4.5 (3.3-5.1) mmol/L Chloride 106 (96-108) mmol/L Carbon Dioxide 27 (22-29) mmol/L Anion Gap 13 (12-20) BUN 33 H (9-16) mg/dL Creatinine 1.25 (0.5-1.4) mg/dL Estim Creat Clear Calc 53.5 Estimated GFR 56 Random Glucose 97 (60-115) mg/dL Uric Acid 7.4 H (3.4-7.0) mg/dL Calcium 10.0 (8.4-10.2) mg/dL Total Bilirubin 0.5 (0.0-1.0) mg/dL AST 45 H (5-37) U/L ALT 99 H (0-40) U/L Alkaline Phosphatase 104 (39-117) U/L C-Reactive Protein 0.21 (< or = 0.50) mg/dL C-React Prot High Sens Cancelled Total Protein 6.4 L (6.5-8.0) g/dL Albumin 4.0 (3.5-5.0) g/dL Discharge Plan Discharge Clinical Impression: Gouty arthritis Patient Disposition: Home, Self-Care Instructions: Low Purine Diet (ED), Gout (ED) Additional Instructions: Take prednisone tapering dose as prescribed Tylenol for pain Follow with your PCP Prescriptions: New prednisone 10 mg tablet 10 mg PO DIRECTED Qty: 30 0RF Rx Instructions: see taper instructions; 40 mg Daily x3 days, 30 mg daily x3 days, 20 mg daily x3 days, 10 mg daily x3 days No Action finasteride 5 mg tablet 5 mg PO DAILY Qty: 30 0RF Rx Instructions: [facility] atorvastatin 20 mg tablet 20 mg PO DAILY Qty: 90 3RF metoprolol tartrate 100 mg tablet 100 mg PO BID Qty: 180 3RF lisinopril 20 mg tablet 20 mg PO DAILY 90 Days Qty: 90 3RF Xarelto 20 mg tablet 20 mg PO DAILY 90 Days Qty: 90 3RF Rx Instructions: must administer with evening meal diltiazem HCl 120 mg capsule,extended release 24hr 120 mg PO DAILY 90 Days Qty: 90 3RF Interventions: ED Discharge Assessment Last Done: 07/23/24 03:00 Discharge Date/Time: 07/23/24 03:01 Print Language: Icelandic
[2024-07-23] MEDS: dexAMETHasone 2 MG TABLET 10 MG PO (02:54)
[2024-07-23 03:00] VITALS: BP 176/62; PULSE 77; RESP 16; TEMP 36.9; O2SAT 98
[2024-07-23 03:11] LABS: Uric Acid 7.4 mg/dL (3.4-7.0)
== END 2024-07-23 03:01 | disposition home or self-care (01) ==
PROVIDERS: Emergency Provider Internal Medicine; PCP Internal Medicine
DX: M10.9 Gout, unspecified (principal); M79.642 Pain in left hand; I48.20 Chronic atrial fibrillation, unspecified; I10 Essential (primary) hypertension; Z79.899 Other long term (current) drug therapy; Z79.01 Long term (current) use of anticoagulants
CPT/HCPCS: 36415; 80053; 84550; 85025; 86140; 99283; 99284; J8540

== ENCOUNTER 2024-11-06 14:44 | Outpatient (REF) | payer MEDICARE, SELFPAY ==
--- NOTE | ~2024-11-06 | US_ITS ---
EXAMINATION: BILATERAL CAROTID ULTRASOUND WITH DOPPLER HISTORY: bruit COMPARISON: There are no prior studies for comparison. TECHNIQUE: Real time and Color and Spectral doppler ultrasonography of the carotid and vertebral arteries was performed in multiple planes. FINDINGS: There is mild plaque in the proximal bilateral internal carotid arteries. VERTEBRAL FLOW DIRECTION: Antegrade bilaterally. PEAK SYSTOLIC VELOCITIES (in cm/sec): RIGHT: CCA: Prox: 96.7 Dist: 71.6 ICA: Prox: 235 Mid: 67.5 Dist: 90.0 ICA/CCA Ratio: 2.43 ECA: 116 Peak ICA EDV: 35.4 LEFT: CCA: Prox: 77.4 Dist: 71.9 ICA: Prox: 62.6 Mid: 107 Dist: 93.3 ICA/CCA Ratio: 1.38 ECA: 91.1 Peak ICA EDV: 24.1 US/US carotid duplex BI IMPRESSION: Findings consistent with 50-69% diameter stenosis of the right internal carotid artery and 30-49% diameter stenosis of the left internal carotid artery by criteria similar to NASCET. Electronically signed by: Jim Holbrook MD 11/06/2024 03:59 PM [facility]
== END 2024-11-06 14:45 | disposition home or self-care (01) ==
LOC: HO.US 14:44
PROVIDERS: PCP Internal Medicine; Visit Provider Thoracic Surgery (Cardiothoracic Vascular Surgery)
DX: Z01.818 Encounter for other preprocedural examination (principal); R09.89 Other specified symptoms and signs involving the circulatory and respiratory systems
CPT/HCPCS: 93880

== ENCOUNTER → 2024-11-06 15:01 | Outpatient (BNV) | payer MEDICARE, SELFPAY | PROVIDERS: PCP Internal Medicine; Visit Provider Radiology Diagnostic Radiology | DX: R09.89 Other specified symptoms and signs involving the circulatory and respiratory systems (principal) | CPT/HCPCS: 93880 ==

== ENCOUNTER 2024-11-24 13:01 | Outpatient (REF) | payer MEDICARE, SELFPAY ==
[2024-11-24 13:59] LABS: Hemoglobin 14.2 g/dl (14.0-18.0); Mean Corpuscular HGB Conc 33.8 g/dl (31.0-36.0); Mean Corpuscular Hemoglobin 32.1 pg (27.0-33.0); Mean Corpuscular Volume 94.8 fL (80.0-98.0); Mean Platelet Volume 10.4 fL (9.4-12.4); Platelet Count 199 X10*3/uL (160-400); Red Blood Count 4.43 X10*6/uL (4.60-5.80); Red Cell Distribution Width 13.2 % (11.0-16.0); White Blood Count 6.1 X10*3/uL (4.8-10.8)
[2024-11-24 14:07] LABS: INTERNATIONAL NORM RATIO 1.3 (0.9-1.1); Prothrombin Time 14.8 SEC (10.9-12.4)
[2024-11-24 14:20] LABS: Anion Gap 12 (12-20); Blood Urea Nitrogen 20 mg/dL (9-16); Calcium 9.4 mg/dL (8.4-10.2); Carbon Dioxide 28 mmol/L (22-29); Chloride 109 mmol/L (96-108); Estimated Glomerular Filt Rate > 60; Glucose Random 85 mg/dL (60-115); Potassium 4.7 mmol/L (3.3-5.1); Sodium 144 mmol/L (135-145)
== END 2024-11-24 13:02 | disposition home or self-care (01) ==
LOC: HO.LAB 13:01
PROVIDERS: Visit Provider Internal Medicine Cardiovascular Disease
DX: I71.20 Thoracic aortic aneurysm, without rupture, unspecified (principal)
CPT/HCPCS: 36415; 80048; 85027; 85610

== ENCOUNTER → 2024-12-09 23:59 | Outpatient (BNV) | payer MEDICARE, SELFPAY | PROVIDERS: PCP Internal Medicine; Visit Provider Internal Medicine Cardiovascular Disease | DX: I35.1 Nonrheumatic aortic (valve) insufficiency (principal); I71.21 Aneurysm of the ascending aorta, without rupture | CPT/HCPCS: 93458; 99152 ==

== ENCOUNTER 2025-01-26 11:01 | Outpatient (AMB) | payer MEDICARE, SELFPAY ==
[2025-01-26 11:09] VITALS: BP 124/72; PULSE 89; BMI 29.5
--- NOTE | 2025-01-26 11:09 | A.OFFVIS_ITS ---
Vital Signs 01/26/25 11:09 Height 5 ft 11 in Weight 211 lb 10.3 oz BMI 29.5 BP 124/72 Blood Pressure Location Lt brachial Position Sitting Pulse 89 Intake Visit Reasons: f/u bypass at [facility] Intake Note: Follow-up Post cardiac surgery hearts good but left leg is in pain burning from the foot to the knee Reconciliation Analyst Required: No Allergy And Immunology Specialist: Allergy And Immunology Specialist Present Accompanied by: Spouse Allergies amoxicillin [Augmentin] Allergy (Unknown, Verified 07/23/24 01:30) nausea and vomiting clavulanic acid [Augmentin] Allergy (Unknown, Verified 07/23/24 01:30) nausea and vomiting oxycodone Adverse Reaction (Verified 07/23/24 01:30) Confusion Medication List - Last Reconciled 01/26/25 by Jose Carnes MD amiodarone 200 mg PO BID aspirin (Adult Low Dose Aspirin) 81 mg PO DAILY atorvastatin 20 mg PO DAILY finasteride 5 mg PO DAILY lisinopril 20 mg PO DAILY 90 days metoprolol tartrate 50 mg PO BID rivaroxaban (Xarelto) 20 mg PO DAILY 90 days HPI Comments Details: Eric comes for follow-up after his ascending aortic aneurysm repair. He also underwent at the same time Maze procedure along with left atrial ligation. Patient says overall he has been doing well except for significant burning discomfort in his right lower extremity. Throughout the day he was mild burden discomfort in his legs but at nighttime it gets worse and radiates up his leg. He said he is very uncomfortable because of the same. He said he tried to wear his compression stocking at nighttime and that made the situation worse. He comes back follow-up in his noted to be in atrial fibrillation. He denies any palpitations. No shortness of breath, orthopnea PND. He said the wound is healing well although when he laughs loudly he does get some discomfort at the site. [facility] Medical History (Updated 01/26/25 @ 12:26 by Jose Carnes MD) Chronic atrial fibrillation Ascending aortic aneurysm HTN (hypertension) Aortic regurgitation Surgical History (Updated 01/26/25 @ 12:26 by Jose Carnes MD) History of hernia surgery History of tonsillectomy Family History Father No problems noted. Mother Diabetes Review of Systems Const Denies chills, Denies fatigue, Denies fever(s), Denies frequent falls, Denies weakness, Denies weight gain and Denies weight loss ENT Denies dizziness Card Denies chest pain, Denies leg edema, Denies lightheadedness, Denies palpitations, Denies dyspnea, Denies dyspnea on exertion, Denies orthopnea and Denies other (loss of consciousness) Resp Denies cough, Denies dyspnea and Denies dyspnea on exertion GI Denies hematochezia and Denies change in stool character Musc Denies abnormal gait, Denies muscle weakness, Denies numbness and Denies radiating pain into limb Neuro Denies abnormal gait, Denies dizziness, Denies frequent falls, Denies numbness, Reports paresthesias (Left lower extremity) and Denies weakness Endo Denies fatigue and Denies palpitations Physical Exam Vital Signs: Last Vital Signs Pulse 89 01/26/25 11:09 BP 124/72 01/26/25 11:09 BMI result Body Mass Index 29.5 Const General: cooperative, comfortable, no acute distress, alert and awake Nutritional Appearance: overweight Orientation/consciousness: patient oriented x3 Limitations: no limitations Neck Neck: Yes trachea midline, Yes supple and Yes no JVD Chest Chest palpation & inspection: other (Healing sternotomy scar) Resp Effort & Inspection: normal respiratory effort Auscultation: clear to auscultation bilaterally Cardio Jugular venous distension: no JVD Rhythm: abnormal rhythm irregularly irregular Heart sounds: S1 normal heart sound present, S2 normal heart sound present and Murmur heart sound present diastolic blowing GI Auscultation: normal bowel sounds Skin General skin exam: no rashes or lesions noted Neuro General: patient oriented x3 and no focal motor deficits Extrem General: Yes no clubbing, cyanosis or edema Psych Appearance: grossly normal Office Procedures EKG Details: EKG shows atrial fibrillation with lateral and inferolateral changes suggestive of repolarization abnormality [id number], Complete Assessment & Plan Assessment & Plan (1) Chronic atrial fibrillation: Comment: Maze procedure done during ascending aortic repair, without long-term success Code(s): I48.20 - Chronic atrial fibrillation, unspecified Category: Medical Plan: Patient with chronic longstanding atrial fibrillation biatrial enlargement status post attempted Maze procedure but without long-term success. Patient was back in atrial fibrillation at this point time. I have therefore recommended given especially his neuropathic discomfort in his left lower extremity discontinue amiodarone therapy and see this will help. Continue metoprolol for rate control and will increase it to 100 mg b.i.d. for rate control. Continue full oral anticoagulation, currently on Xarelto 20 mg daily and will continue although he had left atrial appendage ligation without any strong scientific data. This was discussed with him. He understands agrees. (2) Status post ascending aortic aneurysm repair: Code(s): Z98.890 - Other specified postprocedural states; Z86.79 - Personal history of other diseases of the circulatory system Category: Surgical Plan: Status post ascending aortic aneurysm repair. Will follow-up echocardiogram near future. Continue aggressive blood pressure control which is currently well optimized. Currently on aspirin therapy prescribed as surgery. Will continue as per surgeon's recommendation but should not be termination clerk as he is already on oral anticoagulation therapy to reduce bleeding risk. Continue statin therapy with target goal less than 100 mg/dL. He wants to wait till his left lower extremity discomfort improves to participate in cardiac rehab. Will follow up in the clinic in 3 months time, sooner p.r.n.. Thank you for allowing me to partake in his care Orders: Orders Cardiac Rehab 2 Weeks Z86.79 - Personal history of other diseases of the circulatory system, Z98.890 - Other specified postprocedural states CA echo transthoracic complete Today Z86.79 - Personal history of other disease s of the circulatory system, Z98.890 - Other specified postprocedural states Medications: Changed From metoprolol tartrate 50 mg PO BID To metoprolol tartrate 100 mg PO BID Coding Level of Care Code Est Pt Level 4 (57433) Complex EM visit Add On G2211 Diagnoses Chronic atrial fibrillation I48.20 Status post ascending aortic aneurysm repair Z98.890; Z86.79 CPT Codes EKG - CPT: [id number], Complete ([id number])
== END 2025-01-26 11:47 | disposition home or self-care (01) ==
LOC: HO.HCS 11:02
PROVIDERS: PCP Internal Medicine; Visit Provider Internal Medicine Cardiovascular Disease
DX: I48.20 Chronic atrial fibrillation, unspecified (principal); Z98.890 Other specified postprocedural states; Z86.79 Personal history of other diseases of the circulatory system
CPT/HCPCS: 93010; 99214; G2211

== ENCOUNTER → 2025-01-26 11:01 | Outpatient (BNVA) | payer MEDICARE, SELFPAY | PROVIDERS: PCP Internal Medicine; Visit Provider Internal Medicine Cardiovascular Disease | DX: I48.20 Chronic atrial fibrillation, unspecified (principal); Z98.890 Other specified postprocedural states; Z86.79 Personal history of other diseases of the circulatory system; R94.31 Abnormal electrocardiogram [ECG] [EKG] | CPT/HCPCS: 93005; 99212 ==

== ENCOUNTER → 2025-02-20 07:52 | Outpatient (REF) | payer MEDICARE, SELFPAY ==
--- NOTE | 2025-02-20 08:01 | CA_ITS ---
Transthoracic Echocardiogram Patient (Last, First, Middle): Eric Ferreira, Gender: Male Date of : 1950 Age: 74 Procedure Date: 02/20/2025 Procedure Type: Transthoracic Echocardiogram Location: OP Height: 180.34 cm Weight: 87.54 kg BSA: 2.08 m2 Heart Rate: bpm BP: 126 / 70 mmHg Watch Assembler: SB Referring MD: Jose Carnes MD Symptoms: Z98.890 - Other specified postprocedural states Study Quality: Adequate ECG Rhythm: Atrial Fibrillation Conclusions: - The left ventricular systolic function is moderate to severely decreased. The calculated ejection fraction is 31% by biplane method. - The left atrium is severely dilated. - A bioprosthetic aortic valve is present. The prosthetic aortic valve appears to be functioning normally. - There is mild dilatation of the ascending aorta measuring 4.30 cm. Findings Left Ventricle Normal left ventricular cavity size. There is severely increased left ventricular wall thickness. The left ventricular systolic function is moderate to severely decreased. The calculated ejection fraction is 31% by biplane method. There is paradoxical septal motion consistent with post operative status. Diastolic function is indeterminate on the basis of available data. Right Ventricle Normal right ventricular cavity size. There is severely decreased right ventricular systolic function. Atria The left atrium is severely dilated. The right atrium is moderately dilated. Aortic Valve A bioprosthetic aortic valve is present. The prosthetic aortic valve appears to be functioning normally. There is no aortic valve regurgitation. Mitral Valve The mitral valve appears normal. There is mild mitral valve regurgitation. There is no mitral valve stenosis. Pulmonic Valve The pulmonic valve is likely normal. Tricuspid Valve There is mild tricuspid valve regurgitation. There is no evidence of pulmonary hypertension. Great Vessels The aortic arch is normal in size. There is mild dilatation of the ascending aorta measuring 4.30 cm. Small plaque is seen in the ascending aorta. Venous The inferior vena cava is normal in size and collapses greater than 50% with inspiration. Pericardium/Pleural There is no evidence of pericardial effusion. Prior Study Comparison Changes noted compared to prior study dated: 04/10/2024. LVEF lower than prior study. Measurements 2D Linear Measurements IVSd: 1.82 0.6-0.9/0.6-1.0 cm LVIDd: 4.07 3.9-5.3/4.2-5.9 cm LVIDd Index: 1.96 2.4-3.2/2.2-3.1 cm/m2 LVIDs: 3.76 2.0-3.6 cm LVPWd: 1.77 0.7-1.1 cm LA Diam: 6.00 2.7-3.8/3.0-4.0 cm LAIDs Index: 2.88 1.5-2.3 cm/m2 LV Mass: 397.32 67-162/88-224 g LV Mass Index: 191.02 43-95/49-115 g/m2 LVOT Diam: 2.40 3.0+(-)1.3 cm 2D Systolic Function EF 4C: 29.00 >55% EF 2C: 30.30 >55% EF BiP: 30.50 >55% Mitral Valve MV Pk E: 0.87 E'Lateral: 12.50 E'Medial: 4.28 E/E' Med: 20.40 E/E' Lat: 7.00 Aortic Valve AoV Pk Darrel: 1.67 AoV Mn Darrel: 1.14 AoV VTI: 0.24 AoV Pk Grad: 11.00 Aov Mn Grad: 6.00 MARYBETH Cont.VTI: 2.43 LVOT LVOT Pk Darrel: 0.85 LVOT Mn Darrel: 0.59 LVOT VTI: 0.13 LVOT Pk Grad: 3.00 LVOT Mn Grad: 2.00 LVOT Diam: 2.40 LVOT Area: 4.52 Diastolic Function MV Pk E: 0.87 E'Medial: 4.28 E/E' Med: 20.40 E' Laterial: 12.50 E/E' Lat: 7.00 Right Ventricle TAPSE (mm): 7.30 TVS' Darrel: 4.00 Tricuspid Valve TR Pk Darrel: 2.62 TR Pk Grad: 27.00 RA Press: 3.00 RVSP: 30.00 Great Vessels Aorta Sinus of Valsalva: 4.05 2.0-3.5 cm Ao Asc: 4.30 2.1-3.4 cm Ao Arch: 3.40 Pulmonary Veins Pulm Vein S/D 0.60 Pulmonary Valve PV Pk Darrel: 0.90 Peak PV Grad: 3.00 Updated in Other Vendor System with Status of Final Berry Warner MD electronically signed on 02/21/2025 12:46:16 PM with status of Final
== END ==
LOC: HO.CARD 07:52
PROVIDERS: PCP Internal Medicine; Visit Provider Internal Medicine Cardiovascular Disease
DX: Z98.890 Other specified postprocedural states (principal); Z86.79 Personal history of other diseases of the circulatory system
CPT/HCPCS: 93306

== ENCOUNTER → 2025-02-20 08:01 | Outpatient (BNV) | payer MEDICARE, SELFPAY | PROVIDERS: PCP Internal Medicine; Visit Provider Internal Medicine | DX: I51.7 Cardiomegaly (principal); I34.0 Nonrheumatic mitral (valve) insufficiency; I36.1 Nonrheumatic tricuspid (valve) insufficiency; Z95.3 Presence of xenogenic heart valve | CPT/HCPCS: 93306 ==

== ENCOUNTER 2025-03-02 07:14 | Outpatient (REF) | payer MEDICARE, SELFPAY ==
[2025-03-02 08:17] LABS: Cholesterol 122 mg/dL (<200); HDL Cholesterol 41 mg/dL (>40); LDL Cholesterol Calculated 62 mg/dL (<100); Triglycerides 95 mg/dL (<150)
== END 2025-03-02 07:15 | disposition home or self-care (01) ==
LOC: HO.LAB 07:14
PROVIDERS: PCP Internal Medicine; Visit Provider Internal Medicine Cardiovascular Disease
DX: I48.20 Chronic atrial fibrillation, unspecified (principal); Z98.890 Other specified postprocedural states; Z86.79 Personal history of other diseases of the circulatory system; Z13.6 Encounter for screening for cardiovascular disorders
CPT/HCPCS: 36415; 80061

== ENCOUNTER 2025-03-04 08:30 | Outpatient (RCR) | payer MEDICARE, SELFPAY | END 2025-03-06 09:05 | disposition home or self-care (01) | LOC: HO.CR 08:30 | PROVIDERS: PCP Internal Medicine; Visit Provider Internal Medicine Cardiovascular Disease | DX: Z86.79 Personal history of other diseases of the circulatory system (principal); Z98.890 Other specified postprocedural states | CPT/HCPCS: 93798 ==

== ENCOUNTER 2025-04-30 13:17 | Outpatient (AMB) | payer MEDICARE, SELFPAY ==
--- OUTSIDE RECORDS SUMMARY | 2025-04-30 13:25 | XMS_ITS | Patient Health Record ---
Author Organization [facility] Address [address] [place] [address] Care Team Providers Care Agricultural Science Professor Name Role Phone Po Gloria CANTU Primary Care Provider Jim Solis [phone] Reason For Referral No Information Medications Medication SIG (Take, Route, Frequency, Duration) Notes Start Date End Date Status Aspir-81 81 MG 1 tablet Orally Once a day Active Colyte w Flavor Packs 240 GM as directed Orally as directed for 1 day(s) 03/11/2015 Active Xarelto 20 MG 1 tablet with food O rally Once a day Active Metoprolol Tartrate 25 MG 1 tablet in th e am and 2 in the pm Orally Twice a day Active Lisinopril 20 MG 1 tablet Orally Once a day Active Problems Problem Type SNOMED Code ICD Code Onset Dates Problem Status W/U Status Risk Notes Problem Colon cancer screening (716986831) Colon cancer screening (V76.51) Active confirmed Problem Diverticulitis of colon (880377494) Diverticulitis of colon (562.11) Active confirmed Problem Imaging of gastrointestinal tract abnormal (956890867) Abnormal CT scan, gastrointestinal tract (793.4) Active confirmed Plan Of Treatment Future Test Test Name Order Date COLONOSCOPY 03/11/2015 Insurance Providers Payer Name Payer Address Payer Phone Subscriber Number Group Number Insured Name Patient Relationship to Insured Coverage Start Date Coverage End Date MEDICARE [place] [address] [place] [address] [id number] LUZ ANDRES Self - patient is the insured MEDEX ATTN CLAIMS [address] [place] [address] [phone] [id number] LUZ ANDRES Self - patient is the insured Medical (General) History Medical History History ICD Code Screening colonoscopy 005--negative except for some diverticula in the ascending colon, moderate diverticulosis in the sigmoid colon, and internal hemorrhoids Denies [place],DM,CVA,Lung disease,renal dise ase HTN A.fib--[place] [address] Zee Hebert--on Xarelto sigmoid diverticulitis in [facility] of 2014-confirmed on CT scan-treated with outpatient antibiotics. Surgical History Surgery Date(Month/Year) Umbilical hernia repair 2000 tonsillectomy
--- OUTSIDE RECORDS SUMMARY | 2025-04-30 13:25 | XMS_ITS | Patient Health Record ---
Author Organization [facility] Address [address] [facility] [address] [facility] [place] [address] Support Name Relationship Address Phone Unavailable Emergency Contact Unknown Unavailabl e LUZ ANDRES Guarantor Unknown Reason For Referral No Information Plan Of Treatment No Information Insurance Providers Payer Name Payer Address Payer Phone Subscriber Number Group Number Insured Name Patient Relationship to Insured Coverage Start Date Coverage End Date DO NOT USE BCBS OF [place] [address] [place] [address] [phone] [id number] LUZ ANDRES Self - patient is the insured
[2025-04-30 13:31] VITALS: BP 128/68; PULSE 77; BMI 28.6
--- NOTE | 2025-04-30 13:31 | A.OFFVIS_ITS ---
Vital Signs 04/30/25 13:31 Height 5 ft 11 in Weight 205 lb 0.478 oz BMI 28.6 BP 128/68 Blood Pressure Location Lt brachial Position Sitting Pulse 77 Pulse Source Pulse Oximeter Intake Visit Reasons: 3 mth s/p echo Allergies amoxicillin (Augmentin) Allergy (Unknown, Verified 07/23/24 01:30) nausea and vomiting clavulanic acid (Augmentin) Allergy (Unknown, Verified 07/23/24 01:30) nausea and vomiting oxycodone Adverse Reaction (Verified 07/23/24 01:30) Confusion Medication List - Last Reconciled 04/30/25 by Jose Carnes MD atorvastatin 20 mg PO DAILY finasteride 5 mg PO DAILY lisinopril 20 mg PO DAILY 90 days metoprolol tartrate 100 mg PO BID rivaroxaban (Xarelto) 20 mg PO DAILY 90 days HPI Comments Details: Eric comes for follow-up. He has been doing well. He is back to his activity level. 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 He is taking all his medications. Little flustered today because of the delays to get into the room for the office visit. Otherwise he is doing well. His echocardiogram showed normally function bioprosthetic aortic valve with moderate to severely reduced LV ejection fraction of 30 35%. He is taking all his medications. He has not had any significant prolonged palpitation irregular heartbeat. No lightheadedness, syncope. No orthopnea, PND, leg edema. No bleeding issues or neurologic events. He says he had 2 episodes of t ransient vision loss in his left eye despite him taking his oral anticoagulation religiously [facility] Medical History (Updated 04/30/25 @ 14:00 by Jose Carnes MD) Ascending aortic aneurysm Aortic regurgitation Chronic atrial fibrillation HTN (hypertension) Surgical History (Updated 04/30/25 @ 14:00 by Jose Carnes MD) History of hernia surgery History of tonsillectomy Family History Father No problems noted. Mother Diabetes Review of Systems Const Reports no additional complaints and Denies weakness Eyes Reports no additional complaints ENT Reports no additional complaints and Denies dizziness Card Denies chest pain, Denies chest pain with activity, Denies syncope, Denies rapid heart rate, Denies pedal edema, Denies edema, Denies leg edema, Denies lightheadedness, Denies palpitations, Denies dyspnea, Denies dyspnea on exertion and Denies orthopnea Resp Denies cough, Denies dyspnea and Denies dyspnea on exertion GI Denies hematochezia and Denies change in stool character Musc Denies abnormal gait, Denies muscle cramps, Denies muscle weakness, Denies numbness, Denies radiating pain into limb and Denies tingling Neuro Denies abnormal gait, Denies dizziness, Denies syncope, Denies numbness, Denies tingling and Denies weakness Endo Denies palpitations Physical Exam Vital Signs: Last Vital Signs Pulse 77 04/30/25 13:31 BP 128/68 04/30/25 13:31 BMI result Body Mass Index 28.6 Const General: cooperative, comfortable, no acute distress, alert and awake Nutritional Appearance: overweight Orientation/consciousness: patient oriented x3 Limitations: no limitations Neck Neck: Yes trachea midline, Yes supple and Yes no JVD Chest Chest palpation & inspection: other (Healing sternotomy scar) Resp Effort & Inspection: normal respiratory effort Auscultation: clear to auscultation bilaterally Cardio Jugular venous distension: no JVD Rhythm: abnormal rhythm irregularly irregular Heart sounds: S1 normal heart sound present, S2 normal heart sound present and Murmur heart sound present diastolic blowing GI Auscultation: normal bowel sounds Skin General skin exam: no rashes or lesions noted Neuro General: patient oriented x3 and no focal motor deficits Extrem General: Yes no clubbing, cyanosis or edema Psych Appearance: grossly normal Assessment & Plan Assessment & Plan (1) Cardiomyopathy: Code(s): I42.9 - Cardiomyopathy, unspecified Category: Medical Plan: Patient has developed cardiomyopathy with moderate to severe LV systolic dysfunction post ascending aortic aneurysm repair without any symptoms or signs of heart failure. He is currently on neurohormonal modulation with lisinopril and metoprolol. Question transient LV systolic dysfunction post surgery related to length of the surgery. At this point time would follow-up echocardiogram in 3 months time to assess improvement in LV ejection fraction. If not would consider changing therapy and/or also consider ICD placement. Discussed with him. He understands agrees. Signs and symptoms of heart failure were discussed. Advised to maintain adequate blood pressure control. (2) Chronic atrial fibrillation: Comment: Maze procedure done during ascending aortic repair, without long-term success Code(s): I48.20 - Chronic atrial fibrillation, unspecified Category: Medical Plan: Chronic atrial fibrillation, currently on rate control therapy with only metoprolol. Heart rate seems a little on the higher side. Has failed Maze procedure which was expected. Will follow-up Holter monitor in near future to see if he requires better rate control and may need addition of digoxin therapy due to his LV systolic dysfunction and to improve heart rate control and avoid tachycardia mediated cardiomyopathy. This was discussed with him. He had a transient vision loss in left eye x2. Will obtain carotid duplex. (3) Status post aortic valve replacement: Comment: Bioprosthetic, concomitant with ascending aortic repair Code(s): Z95.2 - Presence of prosthetic heart valve Category: Surgical Plan: Status post bioprosthetic aortic valve replacement. Working well. Continue full oral anticoagulation above. SBE prophylaxis as per ACC/aha guidelines. (4) Status post ascending aortic aneurysm repair: Code(s): Z98.890 - Other specified postprocedural states; Z86.79 - Personal history of other diseases of the circulatory system Category: Surgical Plan: Status post ascending aortic aneurysm. Doing well. Continue aggressive blood pressure control. Will follow up in the clinic in 3 months time, sooner p.r.n.. Thank you for allowing me to partake in his care Coding Level of Care Code Est Pt Level 4 (37503) Complex EM visit Add On G2211 Diagnoses Cardiomyopathy I42.9 Chronic atrial fibrillation I48.20 Status post aortic valve replacement Z95.2 Status post ascending aortic aneurysm repair Z98.890; Z86.79
== END 2025-04-30 13:54 | disposition home or self-care (01) ==
LOC: HO.HCS 13:17
PROVIDERS: PCP Internal Medicine; Visit Provider Internal Medicine Cardiovascular Disease
DX: I42.9 Cardiomyopathy, unspecified (principal); I48.20 Chronic atrial fibrillation, unspecified; Z95.2 Presence of prosthetic heart valve; Z98.890 Other specified postprocedural states; Z86.79 Personal history of other diseases of the circulatory system
CPT/HCPCS: 99214; G2211

== ENCOUNTER → 2025-04-30 13:17 | Outpatient (BNVA) | payer MEDICARE, SELFPAY | PROVIDERS: PCP Internal Medicine; Visit Provider Internal Medicine Cardiovascular Disease | DX: I42.9 Cardiomyopathy, unspecified (principal); I48.20 Chronic atrial fibrillation, unspecified; Z79.01 Long term (current) use of anticoagulants; Z79.899 Other long term (current) drug therapy; Z95.2 Presence of prosthetic heart valve; Z86.79 Personal history of other diseases of the circulatory system; Z98.890 Other specified postprocedural states | CPT/HCPCS: 99212 ==

== ENCOUNTER 2025-05-21 12:09 | Outpatient (REF) | payer MEDICARE, SELFPAY ==
--- OUTSIDE RECORDS SUMMARY | 2025-05-21 12:43 | XMS_ITS | Patient Health Record ---
Author Organization [facility] Address [address] [place] [address] Care Team Providers Care Java J2Ee Lead Name Role Phone Po Gloria CANTU Primary Care Provider Jim Solis [phone] Reason For Referral No Information Medications Medication [...] Status Risk Notes Problem Colon cancer screening (550909961) Colon cancer screening (V76.51) Active confirmed Problem Diverticulitis of colon (053423558) Diverticulitis of colon (562.11) Active confirmed Problem Imaging of gastrointestinal tract abnormal (763100303) Abnormal CT scan, gastrointestinal tract (793.4) Active confirmed Plan Of Treatment Future Test Test Name Order Date COLONOSCOPY 03/11/2015 Insurance Providers Payer Name Payer Address Payer Phone Subscriber Number Group Number Insured Name Patient Relationship to Insured Coverage Start Date Coverage End Date MEDICARE OF [place] [address] [place] [address] [phone] [id number] LUZ NADRES Self - patient is the insured MEDEX ATTN CLAIMS [address] [place] [address] [id number] LUZ ANDRES Self - patient is the insured Medical (General) History Medical History History ICD Code Screening colonoscopy 005--negative except for some diverticula in the ascending colon, moderate diverticulosis in the sigmoid colon, and internal hemorrhoids Denies [place],DM,CVA,Lung disease,renal dise ase HTN A.fib--[place] [address] Zee Hebert--on Xarelto sigmoid diverticulitis in [facility] of 2014-confirmed on CT scan-treated with outpatient antibiotics. Surgical History Surgery Date(Month/Year) Umbilical hernia repair 2000 tonsillectomy
--- OUTSIDE RECORDS SUMMARY | 2025-05-21 12:43 | XMS_ITS | Encounter Summary ---
Author Organization [facility] Address [address] [place] [address] Phone Care Team Providers Care Supervisor Contingents Name Role Phone Gloria Orourke MD Primary Care Provider [phone] Encounter Details Date Type Department Care Team (Late st Contact Info) Description 06/04/2021 Procedure Pass OR Admitting Dept - Virtual Department [address] [place] [address] Social History Tobacco Use Types Packs/Day Years Used Date Smoking Tobacco: Never Smokeless Tobacco: Never Alcohol Use Standard Drinks/Week Comments Never 0 (1 standard drink = 0.6 oz pur e alcohol) Sex and Gender Information Value Date Recorded Sex Assigned at Male 06/03/2021 8:57 PM EDT Legal Sex Male 8:34 PM EDT Gender Identity Male 06/03/2021 8:57 PM EDT Sexual Orientation Straight 06/03/2021 8: 57 PM EDT documented as of this encounter Plan of Treatment Not on file documented as of this encounter Visit Diagnoses Not on filedocumented in this encounter Care Teams Supervisor Contingents Relationship Specialty Start Date End Date Gloria Orourke MD [address] [place] [id number] PCP - General Internal Medicine 06/03/21 documented as of this encounter Additional Source Comments The information contained in this document represents components of the legal health record. It is not the complete legal health record.[facility]
--- OUTSIDE RECORDS SUMMARY | 2025-05-21 12:44 | XMS_ITS | Patient Health Record ---
Author Organization [facility] Address [address] [facility] [address] [place] [address] Support Name Relationship Address Phone Unavailable Emergency Contact Unknown Unavailabl e LUZ ANDRES Guarantor Unknown Reason For Referral No Information Plan Of Treatment No Information Insurance Providers Payer Name Payer Address Payer Phone Subscriber Number Group Number Insured Name Patient Relationship to Insured Coverage Start Date Coverage End Date DO NOT USE BCBS OF [place] [address] [place] [address] [id number] LUZ ANDRES Self - patient is the insured
[2025-05-22 12:38] LABS: Free Prostate Spec Ag 0.8 ng/mL; Percent Free Prostate Spec Ag 16 % (calc) (>25)
== END 2025-05-21 12:10 | disposition home or self-care (01) ==
LOC: HO.LAB 12:09
PROVIDERS: PCP Internal Medicine; Visit Provider Urology
DX: N40.1 Benign prostatic hyperplasia with lower urinary tract symptoms (principal)
CPT/HCPCS: 36415; 84154

== ENCOUNTER 2025-07-20 14:45 | Outpatient (REF) | payer MEDICARE, SELFPAY ==
--- OUTSIDE RECORDS SUMMARY | 2025-07-20 17:19 | XMS_ITS | Patient Health Record ---
Demographics Address [address] [place] [address] Mobile Preferred Language en Marital Status Adventist Affiliation Unknown
== END 2025-07-20 14:46 | disposition home or self-care (01) ==
LOC: HO.US 14:45
PROVIDERS: PCP Internal Medicine; Visit Provider Internal Medicine Cardiovascular Disease
DX: M79.605 Pain in left leg (principal)
CPT/HCPCS: 93971

== ENCOUNTER → 2025-07-20 14:49 | Outpatient (BNV) | payer MEDICARE, SELFPAY | PROVIDERS: PCP Internal Medicine; Visit Provider Radiology Diagnostic Radiology | DX: R22.42 Localized swelling, mass and lump, left lower limb (principal) | CPT/HCPCS: 93971 ==

== ENCOUNTER → 2025-07-29 08:41 | Outpatient (REF) | payer MEDICARE, SELFPAY ==
--- OUTSIDE RECORDS SUMMARY | 2022-03-16 18:49 | XMS_ITS | Encounter Summary ---
Author Organization [facility] Address [address] [facility] [address] [place] [address] Phone Care Team Providers Care Software Architect Name Role Phone Gloria Orourke MD Primary Care Provider [phone] Encounter Details Date Type Department Care Team (Late st Contact Info) Description 03/16/2022 6:49 PM EDT Hospital Encounter [facility] [address] [place] [address] Elaine Gaming FNP [address] [place] [phone] [email or web address] Social History Tobacco Use Types Packs/Day [...] report originally createdby Jerrell Solomon. Elaine Gaming CLINICAL NURSE LEADER IMG XR UPPER EXTREMITY Yue l Result documented in this encounter Visit Diagnoses Not on filedocumented in this encounter Care Teams Software Architect Relationship Specialty Start Date End Date Gloria Orourke MD [address] [place] [address] [place] [phone] PCP - General Internal Medicine 06/03/21 documented as of this encounter Additional Source Comments The information contained in this document represents components of the legal health record. It is not the complete legal health record.[facility]
--- OUTSIDE RECORDS SUMMARY | 2023-04-29 09:39 | XMS_ITS | Encounter Summary ---
Author Organization [facility] Address [address] [place] [address] Phone Care Team Providers Care Investigation Division Captain Name Role Phone Gloria Orourke MD Primary Care Provider [phone] Encounter Details Date Type Department Care Team (Late st Contact Info) Description 04/29/2023 9:39 AM EDT Hospital Encounter [facility] [address] [place] [address] Amanda Henning, MENTAL HEALTH CASE MANAGER [address] [place] [address] [email or web address] Social History Tobacco Use Types Packs/Day Years [...] fracture or dislocation. us Amanda B Tierneyll MENTAL HEALTH CASE MANAGER IMG XR LOWER EXTREMITY Yue l Result documented in this encounter Visit Diagnoses Not on filedocumented in this encounter Care Teams Investigation Division Captain Relationship Specialty Start Date End Date Gloria Orourke MD [address] [place] [address] Drive [address] [place] [address] PCP - General Internal Medicine 06/03/21 documented as of this encounter Additional Source Comments The information contained in this document represents components of the legal health record. It is not the complete legal health record.[facility]
--- OUTSIDE RECORDS SUMMARY | 2024-03-25 08:52 | XMS_ITS | Encounter Summary ---
Author Organization [facility] Address [address] [facility] [address] [place] [address] Phone Care Team Providers Care Circuit Court Judge Name Role Phone Gloria Orourke MD Primary Care Provider [phone] Encounter Details Date Type Department Care Team (Late st Contact Info) Description 03/25/2024 8:52 AM EDT Hospital Encounter [facility] [address] [place] [address] Maritza Rader CNP [address] [place] [address] Social History Tobacco Use Types Packs/Day Years [...] report originally createdby Artur Mcdonald. Maritza Rader HEALTH BENEFITS SPECIALIST IMG XR UPPER EXTREMITY Yue l Result documented in this encounter Visit Diagnoses Not on filedocumented in this encounter Care Teams Circuit Court Judge Relationship Specialty Start Date End Date Gloria Orourke MD [address] [facility] [address] [place] [address] PCP - General Internal Medicine 06/03/21 documented as of this encounter Additional Source Comments The information contained in this document represents components of the legal health record. It is not the complete legal health record.[facility]
--- OUTSIDE RECORDS SUMMARY | 2025-07-20 08:32 | XMS_ITS | Encounter Summary ---
Author Organization [facility] Address [address] [employer] [facility] [address] [place] [address] Phone Care Team Providers Care Records Manager Name Role Phone Gloria Orourke MD Primary Care Provider [phone] Encounter Details Date Type Department Care Team (Late st Contact Info) Description 07/20/2025 8:32 AM EDT Hospital Encounter [facility] [address] [place] [address] Elaine Gaming FNP [address] [place] [phone] [email or web address] Social History Tobacco Use Types Packs/Day [...] clinician's provided indication for this examination in [facility]: Pain; pain for 3 weeks with leg swelling COMPARISON: None FINDINGS: Left Knee: No acute fracture or dislocation. Small knee joint effusion. Procedure Note Aguilar Gandhi MD - 07/20/2025 XR KNEE 4 OR MORE VIEWS (LEFT) Referring clinician's provided indication for this examination in [facility]:Pain; pain for 3 weeks with leg swelling COMPARISON: None FINDINGS: Left Knee: No acute fracture or dislocation. Small knee joint effusion. IMPRESSION: No acute fracture or dislocation. Small knee joint effusion. Elaine Gaming DIRECTOR TRANSLATIONAL IMG XR LOWER EXTREMITY Yue l Result documented in this encounter Visit Diagnoses Not on filedocumented in this encounter Care Teams Records Manager Relationship Specialty Start Date End Date Gloria Orourke MD [address] [place] [address] Drive [address] [place] [address] PCP - General Internal Medicine 06/03/21 documented as of this encounter Additional Source Comments The information contained in this document represents components of the legal health record. It is not the complete legal health record.[facility]
--- NOTE | ~2025-07-29 | US_ITS ---
EXAMINATION: BILATERAL CAROTID ULTRASOUND WITH DOPPLER HISTORY: G45.3 - Amaurosis fugax COMPARISON: Comparison is made with the prior examination dated 11/06/2024. TECHNIQUE: Real time and Color and Spectral doppler ultrasonography of the carotid and vertebral arteries was performed in multiple planes. FINDINGS: There is a small amount of plaque in both internal carotid arteries. An arrhythmia was noted during the course of the examination. VERTEBRAL FLOW DIRECTION: Antegrade bilaterally. PEAK SYSTOLIC VELOCITIES (in cm/sec): RIGHT: CCA: Prox: 46.8 Dist: 56.2 ICA: Prox: 58.1 Mid: 59.7 Dist: 61.7 ICA/CCA Ratio: 1.03 ECA: 49.5 Peak ICA end diastolic velocity (EDV): 26.7 LEFT: CCA: Prox: 51.9 Dist: 40.1 ICA: Prox: 53.0 Mid: 57.8 Dist: 65.7 ICA/CCA Ratio: 1.03 ECA: 53.0 Peak ICA end diastolic velocity (EDV): 22.9 US/US carotid duplex BI IMPRESSION: 1. Findings consistent with 0-49% stenosis of the bilateral internal carotid arteries. 2. An arrhythmia was noted during the course of the examination. Clinical correlation is recommended. Electronically signed by: Jim Holbrook MD 07/29/2025 10:29 AM EDT
--- NOTE | 2025-07-29 08:45 | CA_ITS ---
Transthoracic Echocardiogram Patient (Last, First, Middle): Eric Ferreira, Gender: Male Date of : 1950 Age: 75 Procedure Date: 07/29/2025 Procedure Type: Transthoracic Echocardiogram Location: OP Height: 180. cm Weight: 87.55 kg BSA: 2.07 m2 Heart Rate: 71 bpm BP: 152 / 90 mmHg Heavy Forger Helper: HARINI Referring MD: Jose Carnes MD Symptoms: I42.9 - Cardiomyopathy, unspecified Study Quality: Adequate. Limmited per order ECG Rhythm: Atrial Fibrillation Conclusions: - The left ventricular systolic function is moderately decreased. The visually estimated ejection fraction is between 35-40%. - There is severely increased left ventricular wall thickness. Findings Left Ventricle Normal left ventricular cavity size. There is severely increased left ventricular wall thickness. The left ventricular systolic function is moderately decreased. The visually estimated ejection fraction is between 35 40%. There is paradoxical septal motion consistent with post-operative status. Diastolic function is indeterminate on the basis of available data. Atria Severe biatrial enlargement. Venous The inferior vena cava is normal in size and collapses greater than 50% with inspiration. Prior Study Comparison Changes noted compared to prior study dated: 02/20/2025. Mild improvement in LVEF. Measurements 2D Systolic Function EF 4C: 40.30 >55% EF 2C: 47.10 >55% EF BiP: 41.80 >55% Updated in Other Vendor System with Status of Final Berry Warner MD electronically signed on 07/31/2025 4:28:51 PM with status of Final
--- NOTE | 2025-07-29 08:45 | HM_ITS ---
Conclusion: 1. Patient was monitored for total period of 2 days 2. Baseline was atrial fibrillation with average heart rate of 95 beats per minute with borderline rate controlled 3. No significant pauses noted 4. Occasional PVCs noted 5. No patient reported events MTDD
--- OUTSIDE RECORDS SUMMARY | 2025-07-29 09:16 | XMS_ITS | Clinical Summary ---
Author Organization Formerly [facility] Address [address] [place] [address] Phone Care Team Providers Care Autopsy Pathologist Name Role Phone Gloria Orourke MD Primary Care Provider [phone] Allergies Active Allergy Reactions Criticality Noted Date Comments Oxycodone-Acetaminophen 06/07/2021 Oxycodone-Aspirin 06/07/2021 Medications atorvastatin (LIPITOR) 20 MG tablet Take 1 tablet (20 mg total) by mouth daily. 06/04/2021 Active metoprolol tartrate (LOPRESSOR) 100 MG tablet Take 1 tablet (100 mg total) by mouth 2 (two) times a day. 0 06/04/2021 Active lisinopril (PRINIVIL,ZESTR IL) 20 MG tablet Take 1 tablet (20 mg total) by mouth daily. 06/04/2021 Active rivaroxaban (XARELTO) 20 mg Tab Take by mouth daily with dinner. Active finasteride (PROSCAR) 5 mg tablet TAKE 1 TABLET BY MOUTH EVERYDAY AT BEDTIME 12/29/2021 Active gabapentin (NEURONTIN) 100 MG capsule 02/02/2025 Active aspirin 81 MG EC tablet Take 81 mg by mouth. 01/12/2025 Active Active Problems Problem Noted Date Diagnosed Date Incarcerated hernia 06/04/2021 Encounters Date Type Department Care Team Description 07/20/2025 8:32 AM EDT Hospital Encounter [facility] [address] [place] [address] [id number] Elaine Gaming FNP 07/20/2025 8:10 AM EDT Office Visit [facility] at [address] [address] Elaine Gaming, AIRCRAFT ENGINEER Acute pain of left knee (Primary Dx); Left leg swelling from Last 3 Months Immunizations Immunization Administration Dates Next Due Tdap 02/03/2025 Social History Tobacco Use Types Packs/Day Years Used Date Smoking Tobacco: Former Cigarettes 1 10 Smokeless Tobacco: Never Tobacco Cessation:Counseling Given: Not Answered Alcohol Use Standard Drinks/Week Comments Never 0 [...] 8:57 PM EDT Sexual Orientation Straight 06/03/2021 8 :57 PM EDT Last Filed Vital Signs Vital Sign Reading Time Taken Comments Blood Pressure 168/109 07/20/2025 8:19 AM EDT Pulse 84 07/20/2025 8:19 AM EDT Temperature 36.3 C (97.4 F) 07/20/2025 8:19 AM EDT Respiratory Rate 18 07/20/2025 8:19 AM EDT Oxygen Saturation 99% 07/20/2025 8:19 AM EDT Inhaled Oxygen Concentration - - Weight 88.5 kg (195 lb) 07/16/2024 3:22 PM EDT Height 180.3 cm (5' 11 ) 07/16/2024 3:22 PM EDT Body Mass Index 27.2 07/16/2024 3:22 PM EDT Plan of Treatment Health Maintenance Due Date Last Done Comments LIPID PANEL 1948 DEPRESSION SCREENING 1960 SMOKING Hx and SMOKELESS TOBACCO SCREENING 1961 HEPATITIS C SCREENING 1966 PNEUMOCOCCAL VACCINES (50+ years) (1 of 1 - PCV) 1998 ZOSTER VACCINES (1 of 2) 1998 CREATININE LEVEL 06/03/2022 06/03/2021 POTASSIUM LEVEL 06/03/2022 06/03/2021 RSV VACCINE (1 - 1-dose 75+ series) 2023 INFLUENZA VACCINE (#1) 2025 COVID-19 VACCINE (4 - 2024-2 6 season) 2025 07/25/2021, 01/23/2021, 01/02/2021 Adult Td,Tdap Booster 02/03/2035 02/03/2025 HEPATITIS A VACCINES Aged Out No long er eligible based on patient's age to complete this topic HIB VACCINES Aged Out No longer eligi ble based on patient's age to complete this topic MENINGOCOCCAL VACCINES (ACWY) Aged Out No longer eligible based on patient's age to complete this topic MENINGOCOCCAL VACCINES (B) Aged Out N o longer eligible based on patient's age to complete this topic Medical Devices Implanted Type Area Ssds Mk 2 Advanced Operator Device Identifier Shelf Expiration Date Model / Serial / Lot Mesh Mesh Mesh Surgical 15cm 8 Hernia Prolene Polypropylene Nonabsorbable Repair Bx/6ea - [id number] Implanted:Qty: 1 on 06/09/2021 by Jomar Grimm MD at [facility] STANDARD Right: Inguinal JNJ ETHICON / DIVISION OF J 07/28/2025 [id number] / / [id number] Procedures Procedure Name Priority Date/Time Associated Diagnosis Comments XR KNEE 4 OR MORE VIEWS (LEFT) Urgent/patient waiting 07/20/2025 8:38 AM EDT Acute pain of left knee BASIC METABOLIC PANEL STAT 06/03/2021 10:04 PM EDT from Last 3 Months or Most Recently Relevant to Health Maintenance Results * XR KNEE 4 OR MORE VIEWS (LEFT) (07/20/2025 8:38 AM EDT) Anatomical Region Laterality Modality Knee Left Computed Radiogr aphy 07/20/2025 9:08 AM EDT Impressions 07/20/2025 9:08 AM EDT No acute fracture or dislocation. Small knee joint effusion. Narrative 07/20/2025 9:08 AM EDT XR KNEE 4 OR MORE VIEWS (LEFT) Referring clinician's provided indication for this examination in Psychiatric: Pain; pain for 3 weeks with leg swelling COMPARISON: None FINDINGS: Left Knee: No acute fracture or dislocation. Small knee joint effusion. Procedure Note Aguilar Gandhi MD - 07/20/2025 XR KNEE 4 OR MORE VIEWS (LEFT) Referring clinician's provided indication for this examination in Psychiatric:Pain; pain for 3 weeks with leg swelling COMPARISON: None FINDINGS: Left Knee: No acute fracture or dislocation. Small knee joint effusion. IMPRESSION: No acute fracture or dislocation. Small knee joint effusion. us Elaine Gaming AIRCRAFT ENGINEER IMG XR LOWER EXTREMITY Yue l Result * (ABNORMAL) Basic metabolic panel (06/03/2021 10:04 PM EDT) SODIUM 142 133 - 146 mmol/L [facility] CHLORIDE 106 96 - 108 mmol/L [facility] POTASSIUM 3.8 3.3 - 5.1 mmol/L [facility] Comment:Specimen slightly he molyzed, result may be falsely elevated. CO2 25 21 - 35 mmol/L [facility] BUN 24(H) 6 - 19 mg/dL [facility] CREATININE 0.90 0.5 - 1.5 mg/dL [facility] GLUCOSE 115(H) 70 - 99 mg/dL [facility] CALCIUM 10.0 8.4 - 10.3 mg/dL [facility] EGFR 84 >59 mL/min/1.7 3m2 [facility] Comment:Estimated glomerular filtration rate calculated using the CKD-EPI equation. ANION GAP 15 10 - 20 mmol/L [facility] Blood 06/03/2021 10:0 4 PM EDT 06/03/2021 10:18 PM EDT us Buster Be DO LAB BLOOD ORDERABLES Final Re sult [facility] Organization Address City/State/ZIP Co de Phone Number [facility] [address] [place], [place] [phone] from Last 3 Months or Most Recently Relevant to Health Maintenance Insurance [employer] MEDEX SUPPLEMENT MEDICARE PART A & B [employer] MEDEX SUPPLEMENT MEDICARE PART A & B [employer] MEDEX SUPPLEMENT MEDICARE PART A & B [employer] MEDEX SUPPLEMENT MEDICARE PART A & B [employer] MEDEX SUPPLEMENT MEDICARE PART A & B [employer] MEDEX SUPPLEMENT MEDICARE PART A & B [employer] MEDEX SUPPLEMENT MEDICARE PART A & B [employer] MEDEX SUPPLEMENT MEDICARE PART A & B [employer] MEDEX SUPPLEMENT MEDICARE PART A & B Care Teams Autopsy Pathologist Relationship Specialty Start Date End Date Gloria Orourke MD [address] [place] [address] [place] [phone] PCP - General Internal Medicine 06/03/21 Additional Source Comments The information contained in this document represents components of the legal health record. It is not the complete legal health record.[facility]
--- OUTSIDE RECORDS SUMMARY | 2025-07-29 09:16 | XMS_ITS | Patient Health Record ---
Author Organization [facility] Address [address] [place] [address] Care Team Providers Care Slot Machine Floor Person Name Role Phone Po Gloria CANTU Primary Care Provider Jim Solis [phone] Reason For Referral No Information Medications Medication [...] Status Risk Notes Problem Colon cancer screening (979950553) Colon cancer screening (V76.51) Active confirmed Problem Diverticulitis of colon (482218944) Diverticulitis of colon (562.11) Active confirmed Problem Imaging of gastrointestinal tract abnormal (432367790) Abnormal CT scan, gastrointestinal tract (793.4) Active confirmed Plan Of Treatment Future Test Test Name Order Date COLONOSCOPY 03/11/2015 Insurance Providers Payer Name Payer Address Payer Phone Subscriber Number Group Number Insured Name Patient Relationship to Insured Coverage Start Date Coverage End Date MED[place] [address] [place] [address] [phone] [id number] LUZ ANDRES Self - patient is the insured MEDEX ATTN CLAIMS [address] [place] [address] [phone] [id number] LUZ ANDRES Self - patient is the insured Medical (General) History Medical History History ICD Code Screening colonoscopy 005--negative except for some diverticula in the ascending colon, moderate diverticulosis in the sigmoid colon, and internal hemorrhoids Denies NC,DM,CVA,Lung disease,renal dise ase HTN A.fib--had cardio[place] [address] Zee Hebert--on Xarelto sigmoid diverticulitis in [facility] of 2014-confirmed on CT scan-treated with outpatient antibiotics. Surgical History Surgery Date(Month/Year) Umbilical hernia repair 2000 tonsillectomy
--- OUTSIDE RECORDS SUMMARY | 2025-07-29 09:16 | XMS_ITS | Encounter Summary ---
Author Organization [facility] Address [address] [place] [address] Phone Care Team Providers Care Construction Driver Name Role Phone Gloria Orourke MD Primary Care Provider [phone] Encounter Details Date Type Department Care Team (Late st Contact Info) Description 06/09/2021 Procedure Pass OR Admitting Dept - Virtual Department [address] [place] [address] Social History Tobacco Use Types Packs/Day Years [...] filedocumented in this encounter Care Teams Construction Driver Relationship Specialty Start Date End Date Gloria Orourke MD [address] [place] [phone] PCP - General Internal Medicine 06/03/21 documented as of this encounter Additional Source Comments The information contained in this document represents components of the legal health record. It is not the complete legal health record.[facility]
--- OUTSIDE RECORDS SUMMARY | 2025-07-29 09:16 | XMS_ITS | Encounter Summary ---
Author Organization [facility] Address [address] [place] [address] Phone Care Team Providers Care Telephonic Case Manager Name Role Phone Gloria Orourke MD Primary Care Provider Encounter Details Date Type Department Care Team (Late st Contact Info) Description 06/04/2021 Procedure Pass OR Admitting Dept - Virtual Department [address] [place] [address] Social History Tobacco Use Types Packs/Day Years [...] on filedocumented in this encounter Care Teams Telephonic Case Manager Relationship Specialty Start Date End Date Gloria rOourke MD [address] [place] [phone] PCP - General Internal Medicine 06/03/21 documented as of this encounter Additional Source Comments The information contained in this document represents components of the legal health record. It is not the complete legal health record.[facility]
--- OUTSIDE RECORDS SUMMARY | 2025-07-29 09:17 | XMS_ITS | Patient Health Record ---
Author Organization [facility] Address [address] [address] [place] [address] Support Name Relationship Address Phone Unavailable Emergency Contact Unknown Unavailabl e LUZ ANDRES Guarantor Unknown [phone] Reason For Referral No Information Plan Of Treatment No Information Insurance Providers Payer Name Payer Address Payer Phone Subscriber Number Group Number Insured Name Patient Relationship to Insured Coverage Start Date Coverage End Date DO NOT USE [place] [address] [place] [address] [id number] LUZ ANDRES Self - patient is the insured
== END ==
LOC: HO.CARD 08:41
PROVIDERS: PCP Internal Medicine; Visit Provider Internal Medicine Cardiovascular Disease
DX: G45.3 Amaurosis fugax (principal); I42.9 Cardiomyopathy, unspecified; I48.20 Chronic atrial fibrillation, unspecified
CPT/HCPCS: 93225; 93308; 93880

== ENCOUNTER → 2025-07-29 08:45 | Outpatient (BNV) | payer MEDICARE, SELFPAY | PROVIDERS: PCP Internal Medicine; Visit Provider Internal Medicine | DX: I51.7 Cardiomegaly (principal); Z98.890 Other specified postprocedural states | CPT/HCPCS: 93308 ==

== ENCOUNTER → 2025-07-29 09:50 | Outpatient (BNV) | payer MEDICARE, SELFPAY | PROVIDERS: PCP Internal Medicine; Visit Provider Radiology Diagnostic Radiology | DX: G45.3 Amaurosis fugax (principal) | CPT/HCPCS: 93880 ==

== ENCOUNTER 2025-08-13 10:17 | Outpatient (AMB) | payer MEDICARE, SELFPAY ==
--- OUTSIDE RECORDS SUMMARY | 2022-03-16 18:49 | XMS_ITS | Encounter Summary ---
Author Organization [facility] Address [address] [employer] [facility] [address] [place] [address] Phone Care Team Providers Care Asset Protection Representative Name Role Phone Gloria Orourke MD Primary Care Provider [phone] Encounter Details Date Type Department Care Team (Late st Contact Info) Description 03/16/2022 6:49 PM EDT Hospital Encounter [facility] [address] [place] [address] Elaine Gaming FNP [address] [place] [phone] [email or web address] Social History Tobacco Use Types Packs/Day Years [...] report originally createdby Jerrell Solomon. Elaine Gaming NECK PINNER IMG XR UPPER EXTREMITY Yue l Result documented in this encounter Visit Diagnoses Not on filedocumented in this encounter Care Teams Asset Protection Representative Relationship Specialty Start Date End Date Gloria Orourke MD [address] [place] [address] [place] [phone] PCP - General Internal Medicine 06/03/21 documented as of this encounter Additional Source Comments The information contained in this document represents components of the legal health record. It is not the complete legal health record.[facility]
--- OUTSIDE RECORDS SUMMARY | 2023-04-29 09:39 | XMS_ITS | Encounter Summary ---
Author Organization [facility] Address [address] [place] [address] Phone Care Team Providers Care Dye Machine Tender Name Role Phone Gloria Orourke MD Primary Care Provider [phone] Encounter Details Date Type Department Care Team (Late st Contact Info) Description 04/29/2023 9:39 AM EDT Hospital Encounter [facility] [address] [place] [address] Amanda Henning, INSTANTIZER OPERATOR [address] [place] [address] [email or web address] Social History Tobacco Use Types Packs/Day Years [...] fracture or dislocation. us Amanda B Tierneyll INSTANTIZER OPERATOR IMG XR LOWER EXTREMITY Yue l Result documented in this encounter Visit Diagnoses Not on filedocumented in this encounter Care Teams Dye Machine Tender Relationship Specialty Start Date End Date Gloria Orourke MD [address] [place] [address] Drive [address] [place] [address] PCP - General Internal Medicine 06/03/21 documented as of this encounter Additional Source Comments The information contained in this document represents components of the legal health record. It is not the complete legal health record.[facility]
--- OUTSIDE RECORDS SUMMARY | 2024-03-25 08:52 | XMS_ITS | Encounter Summary ---
Author Organization [facility] Address [address] [facility] [address] [place] [address] Phone Care Team Providers Care Electronics Test Engineer Name Role Phone Gloria Orourke MD Primary Care Provider [phone] Encounter Details Date Type Department Care Team (Late st Contact Info) Description 03/25/2024 8:52 AM EDT Hospital Encounter [facility] [address] [place] [phone] Maritza Rader CNP [address] [place] [phone] [email or web address] Social History Tobacco Use Types Packs/Day Years [...] report originally createdby Artur Mcdonald. Maritza Rader IMMIGRATION INSPECTOR IMG XR UPPER EXTREMITY Yue l Result documented in this encounter Visit Diagnoses Not on filedocumented in this encounter Care Teams Electronics Test Engineer Relationship Specialty Start Date End Date Gloria Orourke MD [address] [place] [address] PCP - General Internal Medicine 06/03/21 documented as of this encounter Additional Source Comments The information contained in this document represents components of the legal health record. It is not the complete legal health record.[facility]
--- OUTSIDE RECORDS SUMMARY | 2025-07-20 08:32 | XMS_ITS | Encounter Summary ---
Author Organization [facility] Address [address] [employer] [facility] [address] [place] [address] Phone Care Team Providers Care Construction Plant Operator Name Role Phone Gloria Orourke MD Primary Care Provider [phone] Encounter Details Date Type Department Care Team (Late st Contact Info) Description 07/20/2025 8:32 AM EDT Hospital Encounter [facility] [address] [place] [address] Elaine Gaming FNP [address] [place] [address] [email or web address] Social History Tobacco Use Types Packs/Day Years [...] clinician's provided indication for this examination in [facility]: Pain; pain for 3 weeks with leg swelling COMPARISON: None FINDINGS: Left Knee: No acute fracture or dislocation. Small knee joint effusion. Procedure Note Aguilar Gandhi MD - 07/20/2025 XR KNEE 4 OR MORE VIEWS (LEFT) Referring clinician's provided indication for this examination in [facility]:Pain; pain for 3 weeks with leg swelling COMPARISON: None FINDINGS: Left Knee: No acute fracture or dislocation. Small knee joint effusion. IMPRESSION: No acute fracture or dislocation. Small knee joint effusion. Elaine Gaming DIRECTOR OF VITAL STATISTICS IMG XR LOWER EXTREMITY Yue l Result documented in this encounter Visit Diagnoses Not on filedocumented in this encounter Care Teams Construction Plant Operator Relationship Specialty Start Date End Date Gloria Orourke MD [address] [place] [address] Drive [address] [place] [address] PCP - General Internal Medicine 06/03/21 documented as of this encounter Additional Source Comments The information contained in this document represents components of the legal health record. It is not the complete legal health record.[facility]
[2025-08-13 10:22] VITALS: BP 132/88; PULSE 54; BMI 28.9
--- NOTE | 2025-08-13 10:22 | MHC.OFFVIS ---
Vital Signs 08/13/25 10:22 Height 5 ft 11 in Weight 207 lb 3.752 oz BMI 28.9 BP 132/88 Blood Pressure Location Lt brachial Position Sitting Pulse 54 Intake Visit Reasons: 3m follow up after testing's Intake Note: 3 month after echo and holter hearts doing ok having left leg discomfort with px and swelling post ablation Farmworker Bulbs Required: No Allergies amoxicillin (Augmentin) Allergy (Unknown, Verified 07/23/24 01:30) nausea and vomiting clavulanic acid (Augmentin) Allergy (Unknown, Verified 07/23/24 01:30) nausea and vomiting oxycodone Adverse Reaction (Verified 07/23/24 01:30) Confusion Medication List - Last Reconciled 08/13/25 by Jose Carnes MD atorvastatin 20 mg PO DAILY finasteride 5 mg PO DAILY lisinopril 20 mg PO DAILY 90 days metoprolol tartrate 100 mg PO BID rivaroxaban (Xarelto) 20 mg PO QPM vitamin B complex 1 tab PO DAILY HPI Comments Details: Eric comes for follow-up. His main complaint is pain in his left lower extremity [id number]. He said he was treated after surgery with gabapentin with gradually escalating dose and finally had relief on 300 mg 4 times a day gabapentin. However subsequently he came off gabapentin because nobody informed him about him to continue it. He has not had a Neurology consultation. He has not seen his PCP. He has pain in his gradually coming back and he is concerned about it. He denies any cardiac symptoms. Denies any prolonged palpitation irregular heartbeat. Recent echocardiogram shows severely reduced LV ejection fraction with severely increased wall thickness. He is scheduled to undergo amyloidosis workup. His Holter monitor also shows inadequate rate controlled. He was advised digoxin was waiting for a visit with me today. [facility] Medical History (Updated 04/30/25 @ 14:00 by Jose Carnes MD) Ascending aortic aneurysm Aortic regurgitation Chronic atrial fibrillation HTN (hypertension) Surgical History (Updated 04/30/25 @ 14:00 by Jose Carnes MD) History of hernia surgery History of tonsillectomy Family History Father No problems noted. Mother Diabetes Review of Systems Const Denies chills, Reports fatigue, Denies fever(s), Denies frequent falls, Denies weakness, Denies weight gain and Denies weight loss ENT Denies dizziness Card Denies chest pain, Reports leg edema, Denies lightheadedness, Denies palpitations, Denies dyspnea, Denies dyspnea on exertion, Denies orthopnea and Denies other (loss of consciousness) Resp Denies cough, Denies dyspnea and Denies dyspnea on exertion GI Denies hematochezia and Denies change in stool character Musc Reports abnormal gait, Denies muscle weakness, Denies numbness, Reports radiating pain into limb and Denies tingling Neuro Reports abnormal gait, Denies dizziness, Denies frequent falls, Denies numbness, Denies tingling and Denies weakness Endo Reports fatigue and Denies palpitations Physical Exam Vital Signs: Last Vital Signs Pulse 54 08/13/25 10:22 BP 132/88 08/13/25 10:22 BMI result Body Mass Index 28.9 Const General: cooperative, comfortable, no acute distress, alert and awake Nutritional Appearance: overweight Orientation/consciousness: patient oriented x3 Limitations: no limitations Neck Neck: Yes trachea midline, Yes supple and Yes no JVD Chest Chest palpation & inspection: other (Healing sternotomy scar) Resp Effort & Inspection: normal respiratory effort Auscultation: clear to auscultation bilaterally Cardio Jugular venous distension: no JVD Rhythm: abnormal rhythm irregularly irregular Heart sounds: S1 normal heart sound present, S2 normal heart sound present and Murmur heart sound present diastolic blowing GI Auscultation: normal bowel sounds Skin General skin exam: no rashes or lesions noted Neuro General: patient oriented x3 and no focal motor deficits Extrem General: Yes no clubbing, cyanosis or edema Psych Appearance: grossly normal Assessment & Plan Assessment & Plan (1) Chronic atrial fibrillation: Comment: Maze procedure done during ascending aortic repair, without long-term success Code(s): I48.20 - Chronic atrial fibrillation, unspecified Category: Medical Plan: Chronic inadequately rate control atrial fibrillation with cardiomyopathy. Continue metoprolol therapy, currently on high dose. Will add digoxin 0.125 mg to his regimen. He had undergone a Maze procedure along with left atrial clipping. However given his left atrial enlargement and inadequate data as well as appendage closure with the clip I would continue oral anticoagulation therapy with Xarelto. Follow-up digoxin assay and blood work in 1 week's time. Follow-up Holter monitor in a month's time. Importance of good rate control was discussed. He understands and agrees. (2) Status post aortic valve replacement: Comment: Bioprosthetic, concomitant with ascending aortic repair Code(s): Z95.2 - Presence of prosthetic heart valve Category: Surgical Plan: Status post aortic valve replacement at the time of ascending aortic aneurysm repair. Valve is working well. At this point time. SBE prophylaxis as per ACC/aha guidelines. Continue full oral anticoagulation, currently on Xarelto. Follow-up echocardiogram on annual basis. (3) Status post ascending aortic aneurysm repair: Code(s): Z98.890 - Other specified postprocedural states; Z86.79 - Personal history of other diseases of the circulatory system Category: Surgical Plan: Status post ascending aortic aneurysm repair for severe ascending aortic aneurysm size. Has done well. Aneurysm sizes mild lead enlarged at this point time. Will continue monitor by annual echocardiogram. (4) Cardiomyopathy: Code(s): I42.9 - Cardiomyopathy, unspecified Category: Medical Plan: Has developed cardiomyopathy process post surgery, question prolonged cardiopulmonary bypass time versus inadequate rate control. Adequate rate control with digoxin will be pursued. Continue metoprolol therapy. Follow-up Holter monitor in a month's time. Follow-up limited echocardiogram in 3 months time. Also has significant wall thickness despite adequate blood pressure control, question amyloidosis. Will suggest amyloidosis workup including PYP scan and urine and serum electrophoresis and light chain measurement. Management was discussed with him. Currently on lisinopril and metoprolol therapy for neurohormonal modulation tolerating well without signs of heart failure. 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 He had responded well to gabapentin therapy. I have advised him to seek your care and have made an urgent referral to Neurology for evaluation and treatment. Will follow up in the clinic in 3 months time after echocardiogram. Greater than 40 minutes was spent in managing his complex care. Orders: Orders CA Echo Limited 3 Months I42.9 - Cardiomyopathy, unspecified ECG holter monitor 48 hour 1 Month I48.20 - Chronic atrial fibrillation, unspecified Referrals Neurology Referral G57.91 - Unspecified mononeuropathy of right lower limb Medications: New digoxin 125 mcg PO DAILY 30 tabs 5RF Coding Level of Care Code Est Pt Level 5 (78691) Complex EM visit Add On G2211 Diagnoses Chronic atrial fibrillation I48.20 Status post aortic valve replacement Z95.2 Status post ascending aortic aneurysm repair Z98.890; Z86.79 Cardiomyopathy I42.9 Left leg pain M79.605
--- OUTSIDE RECORDS SUMMARY | 2025-08-13 12:40 | XMS_ITS | Encounter Summary ---
Author Organization [facility] Address [address] [place] [address] Phone Care Team Providers Care Corporate Accounting Manager Name Role Phone Gloria Orourke MD Primary Care Provider [phone] Encounter Details Date Type Department Care Team (Late st Contact Info) Description 06/04/2021 Procedure Pass OR Admitting Dept - Virtual Department [address] [place] [address] Social History Tobacco Use Types Packs/Day Years [...] on filedocumented in this encounter Care Teams Corporate Accounting Manager Relationship Specialty Start Date End Date Gloria Orourke MD [address] [place] [phone] PCP - General Internal Medicine 06/03/21 documented as of this encounter Additional Source Comments The information contained in this document represents components of the legal health record. It is not the complete legal health record.[facility]
--- OUTSIDE RECORDS SUMMARY | 2025-08-13 12:40 | XMS_ITS | Clinical Summary ---
Author Organization [address] [facility] Address [address] [place] [address] Phone Care Team Providers Care Coverstitch Elastic Attacher Name Role Phone Physician, Pcp Unknown Primary Care Provider Savannah vailable Encounters Date Type Department Care Team Description 07/29/2025 Lab Requisition [facility] - Main Lab [address] [facility] [place] [address] Jaiden Beaver MD Benign prostatic hyperplasia with lower urinary tract symptoms from Last 3 Months Social History Tobacco Use Types Packs/Day Years Used Date Smoking Tobacco: Never Assessed Sex and Gender Information Value Date Recorded Sex Assigned at Not on file Legal Sex Male 12:35 PM EDT Gender Identity Not on file Sexual Orientation Not on file Plan of Treatment Health Maintenance Due Date Last Done Comments DTaP,Tdap,and Td Vaccines (1 - Tdap) 1967 Pneumococcal Vaccine: 50+ Ye ars (1 of 1 - PCV) 1998 Zoster Vaccines (1 of 2) 1998 RSV Immunization Adult Patie nts (1 - 1-dose 75+ series) 2023 Depression Screening 10/29/2024 COVID-19 Vaccine (1 - 2023-2 5 season) 2025 Influenza Vaccine (#1) 2025 Cholesterol Screening (Lipid Panel) 07/29/2025 Falls Risk Assessment 07/29/2025 Hepatitis C Screening 07/29/2025 Medicare Annual Wellness Visit 07/29/2025 Social Influencers of Health Screening 07/29/2025 HIB Vaccines Aged Out No longer eligi ble based on patient's age to complete this topic HPV Vaccines Aged Out No longer eligi ble based on patient's age to complete this topic Hepatitis A Vaccines Aged Out No long er eligible based on patient's age to complete this topic Hepatitis B Vaccines Aged Out No long er eligible based on patient's age to complete this topic IPV Vaccines Aged Out No longer eligi ble based on patient's age to complete this topic MMR Vaccines Aged Out No longer eligi ble based on patient's age to complete this topic Meningococcal ACWY Vaccine Aged Out N o longer eligible based on patient's age to complete this topic Meningococcal B Vaccine Aged Out No l onger eligible based on patient's age to complete this topic RSV Immunization Patients Un lilian 20 months Aged Out No longer eligible b ased on patient's age to complete this topic Varicella Vaccines Aged Out No longer eligible based on patient's age to complete this topic Procedures Procedure Name Priority Date/Time Associated Diagnosis Comments TISSUE EXAM Routine 07/28/2025 Benign prostatic hyperplasia with lower urinary tract symptoms from Last 3 Months Results * Tissue Exam (07/28/2025) Final Diagnosis A. Prostate, Left Middle [place] Biopsy: - Benign prostatic tissue. B. Prostate, Left Lateral [place] Biopsy: - Benign prostatic tissue. C. Prostate, Left Middle Middle Biopsy: - Benign prostatic tissue. D. Prostate, Left Lateral Middle Biopsy: - Benign prostatic tissue. E. Prostate, Left Middle Base Biopsy: - Benign prostatic tissue. F. Prostate, Left Lateral Base Biopsy: - Benign prostatic tissue. G. Prostate, Right Middle [place] Biopsy: - Benign prostatic tissue. H. Prostate, Right Lateral [place] Biopsy: - Benign prostatic tissue. I. Prostate, Right Middle Middle Biopsy: - Benign prostatic tissue. J. Prostate, Right Lateral Middle Biopsy: - Benign prostatic tissue. K. Prostate, Right Middle [place] Biopsy: - Prostatic acinar adenocarcinoma (conventional type), grade group 3 (Volodymyr score 4+3=7). - Percentage pattern 4: 70%. - Tumor continuously involves 10% of 1 of 1 tissue core. L. Prostate, Right Lateral Base Biopsy: - Prostatic acinar adenocarcinoma (conventional type), grade group 2 (Volodymyr score 3+4=7). - Percentage pattern 4: 10%. - Tumor continuously involves 56% of 1 of 1 tissue core. M. Prostate, Right PZ Lesion Biopsy: - Prostatic acinar adenocarcinoma (conventional type), grade group 2 (Volodymyr score 3+4=7). - Percentage pattern 4: 40%. - Tumor continuously involves 25% of overall tissue, present in 3 of 3 tissue cores. - Intraductal carcinoma is present. 07/31/2025 12:51 PM EDT [facility] at 1250 EDT Clinical Information Elevated PSA N40.1 PSA: 4.9 (05/21/25) [id number] 07/31/2025 12:51 PM EDT [facility] Gross Description A. Prostate, Left Middle [place] Biopsy: Received, properly labeled, are two H and E stained slides and two unstained slides. B. Prostate, Left Lateral [place] Biopsy: Received, properly labeled, are two H and E stained slides and two unstained slides. C. Prostate, Left Middle [place] Biopsy: Received, properly labeled, are two H and E stained slides and two unstained slides. D. Prostate, Left Lateral Middle Biopsy: Received, properly labeled, are two H and E stained slides and two unstained slides. E. Prostate, Left Middle Base Biopsy: Received, properly labeled, are two H and E stained slides and two unstained slides. F. Prostate, Left Lateral Base Biopsy: Received, properly labeled, are two H and E stained slides and two unstained slides. G. Prostate, Right Middle [place] Biopsy: Received, properly labeled, are two H and E stained slides and two unstained slides. H. Prostate, Right Lateral [place] Biopsy: Received, properly labeled, are two H and E stained slides and two unstained slides. I. Prostate, Right Middle [place] Biopsy: Received, properly labeled, are two H and E stained slides and two unstained slides. J. Prostate, Right Lateral [place] Biopsy: Received, properly labeled, are two H and E stained slides and two unstained slides. K. Prostate, Right Middle [place] Biopsy: Received, properly labeled, are two H and E stained slides and two unstained slides. L. Prostate, Right Lateral Base Biopsy: Received, properly labeled, are two H and E stained slides and two unstained slides. M. Prostate, Right PZ Lesion Biopsy: Received, properly labeled, are two H and E stained slides and two unstained slides. /al 07/31/2025 12:51 PM EDT [facility] Disclaimer Unless otherwise specified, all tissue is 10% NB formalin fixed and paraffin embedded. Technical pathology services provided by [facility] at [address], [place] [address] (CLIA #[id number]/Sofi Liriano MD, Certified Court/Medical Interpreter) 07/31/2025 12:51 PM EDT [facility]) [facility] Tissue Prostate / Unknown 07/28/20252024 12:47 PM EDT Tissue specimen (specimen) Prostate / Unknown 07/28/2025 07/29/2025 12 :50 PM EDT Tissue specimen (specimen) Prostate / Unknown 07/28/2025 07/29/2025 12 :50 PM EDT Tissue specimen (specimen) Prostate / Unknown 07/28/2025 07/29/2025 12 :50 PM EDT Tissue specimen (specimen) Prostate / Unknown 07/28/2025 07/29/2025 12 :50 PM EDT Tissue specimen (specimen) Prostate / Unknown 07/28/2025 07/29/2025 12 :50 PM EDT Tissue specimen (specimen) Prostate / Unknown 07/28/2025 07/29/2025 12 :50 PM EDT Tissue specimen (specimen) Prostate / Unknown 07/28/2025 07/29/2025 12 :50 PM EDT Tissue specimen (specimen) Prostate / Unknown 07/28/2025 07/29/2025 12 :50 PM EDT Tissue specimen (specimen) Prostate / Unknown 07/28/2025 07/29/2025 12 :50 PM EDT Tissue specimen (specimen) Prostate / Unknown 07/28/2025 07/29/2025 12 :50 PM EDT Tissue specimen (specimen) Prostate / Unknown 07/28/2025 07/29/2025 12 :50 PM EDT Tissue specimen (specimen) Prostate / Unknown 07/28/2025 07/29/2025 12 :50 PM EDT us Jaiden Beaver MD LAB PATHOLOGY ORDERABLES Final Result [facility] ([facility] [address] [place] [address], [place] [phone] from Last 3 Months Insurance MEDICARE [facility] Care Teams Coverstitch Elastic Attacher Relationship Specialty Start Date End Date Physician, Pcp Unknown PCP - General 07/29/25
--- OUTSIDE RECORDS SUMMARY | 2025-08-13 12:40 | XMS_ITS | Patient Health Record ---
Author Organization [facility] Address [address] [place] [address] Care Team Providers Care Manager Integrity Name Role Phone Po Gloria CANTU Primary Care Provider Jim oSlis [phone] Reason For Referral No Information Medications Medication SIG (Take, Route, Frequency, Duration) Notes Start Date End Date Status Aspir-81 81 MG 1 tablet Orally Once a day Active Colyte w Flavor Packs 240 GM as directed Orally as directed; Duration: 1 day(s) 03/11/2015 Active Xarelto 20 MG [...] Status Risk Notes Problem Colon cancer screening (837791654) Colon cancer screening (V76.51) Active confirmed Problem Diverticulitis of colon (269857919) Diverticulitis of colon (562.11) Active confirmed Problem Imaging of gastrointestinal tract abnormal (556821509) Abnormal CT scan, gastrointestinal tract (793.4) Active confirmed Plan Of Treatment Future Test Test Name Order Date COLONOSCOPY 03/11/2015 Insurance Providers Payer Name Payer Address Payer Phone Subscriber Number Group Number Insured Name Patient Relationship to Insured Coverage Start Date Coverage End Date MEDICARE OF [place] [address] [place] [address] [phone] [id number] LUZ ANDRES Self - patient is the insured MED[employer] ATTN CLAIMS [address] [place] [address] [id number] LUZ ANDRES Self - patient is the insured Medical (General) History Medical History History ICD Code Screening colonoscopy 005--negative except for some diverticula in the ascending colon, moderate diverticulosis in the sigmoid colon, and internal hemorrhoids Denies [place],DM,CVA,Lung disease,renal dise ase HTN A.fib--had cardio[place] [address] Zee Hebert--on Xarelto sigmoid diverticulitis in [facility] of 2014-confirmed on CT scan-treated with outpatient antibiotics. Surgical History Surgery Date(Month/Year) Umbilical hernia repair 2000 tonsillectomy
--- OUTSIDE RECORDS SUMMARY | 2025-08-13 12:40 | XMS_ITS | Encounter Summary ---
Author Organization [facility] Address [address] [place] [address] Phone Care Team Providers Care Stock Worker Name Role Phone Gloria Orourke MD Primary Care Provider [phone] Encounter Details Date Type Department Care Team (Late st Contact Info) Description 06/09/2021 Procedure Pass OR Admitting Dept - Virtual Department [address] [place] [address] Social History Tobacco Use Types Packs/Day Years [...] on filedocumented in this encounter Care Teams Stock Worker Relationship Specialty Start Date End Date Gloria Orourke MD [address] [place] [phone] PCP - General Internal Medicine 06/03/21 documented as of this encounter Additional Source Comments The information contained in this document represents components of the legal health record. It is not the complete legal health record.[facility]
--- OUTSIDE RECORDS SUMMARY | 2025-08-13 12:40 | XMS_ITS | Encounter Summary ---
Author Organization [facility] Address [address] [place] [address] Care Team Providers Care Laborer Golf Course Name Role Phone Physician, Pcp Unknown Primary Care Provider Savannah vailable Encounter Details Date Type Department Care Team (Late st Contact Info) Description 07/29/[address] [facility] - Main Lab [address] [facility] [place] [address] Jaiden Beaver MD [address] [place] [id number] Benign prostatic hyperplasia with lower urinary tract symptoms Social History Tobacco Use Types Packs/Day Years Used Date Smoking Tobacco: Never Assessed Sex and Gender Information Value Date Recorded Sex Assigned at Not on file Legal Sex Male 12:35 PM EDT Gender Identity Not on file Sexual Orientation Not on file documented as of this encounter Plan of Treatment Not on file documented as of this encounter Procedures Procedure Name Priority Date/Time Associated Diagnosis Comments TISSUE EXAM Routine 07/28/2025 Benign prostatic hyperplasia with lower urinary tract symptoms documented in this encounter Results * Tissue Exam (07/28/2025) Final Diagnosis A. Prostate, Left Middle [place] Biopsy: - Benign prostatic tissue. B. Prostate, Left Lateral [place] Biopsy: - Benign prostatic tissue. C. Prostate, Left Middle Middle Biopsy: - Benign prostatic tissue. D. Prostate, Left Lateral Middle Biopsy: - Benign prostatic tissue. E. Prostate, Left Middle [place] Biopsy: - Benign prostatic tissue. F. Prostate, Left Lateral Base Biopsy: - Benign prostatic tissue. G. Prostate, Right Middle [place] Biopsy: - Benign prostatic tissue. H. Prostate, Right Lateral [place] Biopsy: - Benign prostatic tissue. I. Prostate, [...] acinar adenocarcinoma (conventional type), grade group 2 ([place] score 3+4=7). - Percentage pattern 4: 10%. - Tumor continuously involves 56% of 1 of 1 tissue core. M. Prostate, Right PZ Lesion Biopsy: - Prostatic acinar adenocarcinoma (conventional type), grade group 2 ([place] score 3+4=7). - Percentage pattern 4: 40%. - Tumor continuously involves 25% of overall tissue, present in 3 of 3 tissue cores. - Intraductal carcinoma is present. 07/31/2025 12:51 PM EDT [facility] at 1250 EDT Clinical Information Elevated PSA N40.1 PSA: 4.9 (05/21/25) [id number] 07/31/2025 12:51 PM EDT [facility] Gross Description A. Prostate, Left Middle [place] Biopsy: Received, properly labeled, are two H and E stained slides and two unstained slides. B. Prostate, Left Lateral [place] Biopsy: Received, properly labeled, are two H [...] two unstained slides. G. Prostate, Right Middle [place] Biopsy: Received, properly labeled, are two H and E stained slides and two unstained slides. H. Prostate, Right Lateral [place] Biopsy: Received, properly labeled, are two H [...] unstained slides. /al 07/31/2025 12:51 PM EDT [facility] Disclaimer Unless otherwise specified, all tissue is 10% NB formalin fixed and paraffin embedded. Technical pathology services provided by [facility] at [address] [place] [address] [address], [place] [address] (CLIA #[id number]/Sofi Liriano MD, Bowling Ball Marker) 07/31/2025 12:51 PM EDT [facility] Tissue Prostate / Unknown 07/28/20252024 [...] Beaver MD LAB PATHOLOGY ORDERABLES Final Result [facility] [address] [place] [address], [place] [phone] documented in this encounter Visit Diagnoses Diagnosis Benign prostatic hyperplasia with lower urinary tract symptoms documented in this encounter Care Teams Laborer Golf Course Relationship Specialty Start Date End Date Physician, Pcp Unknown PCP - General 07/29/25 documented as of this encounter
--- OUTSIDE RECORDS SUMMARY | 2025-08-13 12:40 | XMS_ITS | Clinical Summary ---
Author Organization [facility] Address [address] [place] [address] Phone Care Team Providers Care Equipment Technician Name Role Phone Gloria Orourke MD Primary Care Provider [phone] Allergies Active Allergy Reactions Criticality Noted Date [...] Description 07/20/2025 8:32 AM EDT Hospital Encounter [facility] [address] [place] [address] [phone] Elaine Gaming FNP 07/20/2025 8:10 AM EDT Office Visit [facility] at [address] [address] Elaine Gaming, COLORED LEATHER SETTER Acute pain of left knee (Primary Dx); [...] this topic Medical Devices Implanted Type Area French Lecturer Device Identifier Shelf Expiration Date Model / Serial / Lot Mesh Mesh Mesh Surgical 15cm 8 Hernia Prolene Polypropylene Nonabsorbable Repair Bx/6ea - [id number] Implanted:Qty: 1 on 06/09/2021 by Jomar Grimm MD at [facility] STANDARD Right: Inguinal JNJ ETHICON / DIVISION OF J 07/28/2025 [id number] / / [id number] Procedures Procedure Name [...] clinician's provided indication for this examination in [facility]: Pain; pain for 3 weeks with leg swelling COMPARISON: None FINDINGS: Left Knee: No acute fracture or dislocation. Small knee joint effusion. Procedure Note Aguilar Gandhi MD - 07/20/2025 XR KNEE 4 OR MORE VIEWS (LEFT) Referring clinician's provided indication for this examination in [facility]:Pain; pain for 3 weeks with leg swelling COMPARISON: None FINDINGS: Left Knee: No acute fracture or dislocation. Small knee joint effusion. IMPRESSION: No acute fracture or dislocation. Small knee joint effusion. us Elaine Gaming COLORED LEATHER SETTER IMG XR LOWER EXTREMITY Yue l Result * (ABNORMAL) Basic metabolic panel (06/03/2021 10:04 PM EDT) SODIUM 142 133 - 146 mmol/L [facility] CHLORIDE 106 96 - 108 mmol/L [facility] POTASSIUM 3.8 3.3 - 5.1 mmol/L [facility] Comment:Specimen slightly he molyzed, result may be falsely elevated. CO2 25 21 - 35 mmol/L [facility] BUN 24(H) 6 - 19 mg/dL [facility] CREATININE 0.90 0.5 - 1.5 mg/dL [facility] GLUCOSE 115(H) 70 - 99 mg/dL [facility] CALCIUM 10.0 8.4 - 10.3 mg/dL [facility] EGFR 84 >59 mL/min/1.7 3m2 [facility] Comment:Estimated glomerular filtration rate calculated using the CKD-EPI equation. ANION GAP 15 10 - 20 mmol/L [facility] Blood 06/03/2021 10:0 4 PM EDT 06/03/2021 10:18 PM EDT us Buster Be DO LAB BLOOD ORDERABLES Final Re sult [facility] Organization Address City/State/ZIP Co de Phone Number [facility] [address] [place], [place] [phone] from Last 3 Months or Most Recently Relevant to Health Maintenance Insurance [employer] MEDEX SUPPLEMENT MEDICARE PART A & B [employer] MED[employer] SUPPLEMENT MEDICARE PART A & B [employer] MEDEX SUPPLEMENT MEDICARE PART A & B [employer] [employer] MEDEX SUPPLEMENT MEDICARE PART A & B [employer] MEDEX SUPPLEMENT MEDICARE PART A & B [facility] [employer] MEDEX SUPPLEMENT MEDICARE PART A & B [facility] [employer] MEDEX SUPPLEMENT MEDICARE PART A & B [employer] MEDEX SUPPLEMENT MEDICARE PART A & B [facility] MEDEX SUPPLEMENT MEDICARE PART A & B Care Teams Equipment Technician Relationship Specialty Start Date End Date Gloria Orourke MD [address] [place] [address] [place] [phone] PCP - General Internal Medicine 06/03/21 Additional Source Comments The information contained in this document represents components of the legal health record. It is not the complete legal health record.[facility]
--- OUTSIDE RECORDS SUMMARY | 2025-08-13 12:41 | XMS_ITS | Patient Health Record ---
Author Organization [facility] Address [address] [facility] [place] [address] Support Name Relationship Address Phone Unavailable Emergency Contact Unknown Unavailabl e LUZ ANDRES Guarantor Unknown Reason For Referral No Information Plan Of Treatment No Information Insurance Providers Payer Name Payer Address Payer Phone Subscriber Number Group Number Insured Name Patient Relationship to Insured Coverage Start Date Coverage End Date DO NOT USE [employer] OF [place] [address] [place] [address] [phone] [id number] LUZ ANDRES Self - patient is the insured
== END 2025-08-13 10:59 | disposition home or self-care (01) ==
LOC: HO.HCS 10:17
PROVIDERS: PCP Internal Medicine; Visit Provider Internal Medicine Cardiovascular Disease
DX: I48.20 Chronic atrial fibrillation, unspecified (principal); Z95.2 Presence of prosthetic heart valve; Z98.890 Other specified postprocedural states; Z86.79 Personal history of other diseases of the circulatory system; I42.9 Cardiomyopathy, unspecified; M79.605 Pain in left leg
CPT/HCPCS: 99215; G2211

== ENCOUNTER → 2025-08-13 10:17 | Outpatient (BNVA) | payer MEDICARE, SELFPAY | PROVIDERS: PCP Internal Medicine; Visit Provider Internal Medicine Cardiovascular Disease | DX: I48.20 Chronic atrial fibrillation, unspecified (principal); I42.9 Cardiomyopathy, unspecified; M79.605 Pain in left leg; Z95.2 Presence of prosthetic heart valve; Z98.890 Other specified postprocedural states; Z86.79 Personal history of other diseases of the circulatory system | CPT/HCPCS: 99212 ==

== ENCOUNTER 2025-08-14 10:01 | Outpatient (AMB) | payer MEDICARE, SELFPAY ==
--- OUTSIDE RECORDS SUMMARY | 2022-03-16 18:49 | XMS_ITS | Encounter Summary ---
Author Organization [facility] Address [address] [facility] [address] [place] [address] Phone Care Team Providers Care Office Communication Professor Name Role Phone Gloria Orourke MD Primary Care Provider [phone] Encounter Details Date Type Department Care Team (Late st Contact Info) Description 03/16/2022 6:49 PM EDT Hospital Encounter [facility] [address] [place] [address] Elaine Gaming FNP [address] [place] [phone] [email or web address] Social History Tobacco Use Types Packs/Day [...] report originally createdby Jerrell Solomon. Elaine Gaming FILM PROCESSING SHIFT SUPERVISOR IMG XR UPPER EXTREMITY Yue l Result documented in this encounter Visit Diagnoses Not on filedocumented in this encounter Care Teams Office Communication Professor Relationship Specialty Start Date End Date Gloria Orourke MD [address] [place] [address] [place] [phone] PCP - General Internal Medicine 06/03/21 documented as of this encounter Additional Source Comments The information contained in this document represents components of the legal health record. It is not the complete legal health record.[facility]
--- OUTSIDE RECORDS SUMMARY | 2023-04-29 09:39 | XMS_ITS | Encounter Summary ---
Author Organization [facility] Address [address] [place] [address] Phone Care Team Providers Care Icing Mixer Name Role Phone Gloria Orourke MD Primary Care Provider [phone] Encounter Details Date Type Department Care Team (Late st Contact Info) Description 04/29/2023 9:39 AM EDT Hospital Encounter [facility] [address] [place] [address] Amanda Henning, COLLAR SETTER [address] [place] [address] [email or web address] Social History Tobacco Use Types Packs/Day Years [...] fracture or dislocation. us Amanda B Tierneyll COLLAR SETTER IMG XR LOWER EXTREMITY Yue l Result documented in this encounter Visit Diagnoses Not on filedocumented in this encounter Care Teams Icing Mixer Relationship Specialty Start Date End Date Gloria Orourke MD [address] [place] [address] Drive [address] [place] [address] PCP - General Internal Medicine 06/03/21 documented as of this encounter Additional Source Comments The information contained in this document represents components of the legal health record. It is not the complete legal health record.[facility]
--- OUTSIDE RECORDS SUMMARY | 2024-03-25 08:52 | XMS_ITS | Encounter Summary ---
Author Organization [facility] Address [address] [employer] [facility] [address] [place] [address] Phone Care Team Providers Care Social Welfare Research Worker Name Role Phone Gloria Orourke MD Primary Care Provider [phone] Encounter Details Date Type Department Care Team (Late st Contact Info) Description 03/25/2024 8:52 AM EDT Hospital Encounter [facility] [address] [place] [phone] Maritza Rader CNP [address] [place] [phone] [email or web address] Social History Tobacco Use Types Packs/Day Years [...] report originally createdby Artur Mcdonald. Maritza Rader SPORTS MEDICINE MASSEUR IMG XR UPPER EXTREMITY Yue l Result documented in this encounter Visit Diagnoses Not on filedocumented in this encounter Care Teams Social Welfare Research Worker Relationship Specialty Start Date End Date Gloria Orourke MD [address] [place] [address] PCP - General Internal Medicine 06/03/21 documented as of this encounter Additional Source Comments The information contained in this document represents components of the legal health record. It is not the complete legal health record.[facility]
--- OUTSIDE RECORDS SUMMARY | 2025-07-20 08:32 | XMS_ITS | Encounter Summary ---
Author Organization [facility] Address [address] [employer] [facility] [address] [place] [address] Phone Care Team Providers Care Official Court Interpreter Name Role Phone Gloria Orourke MD Primary Care Provider [phone] Encounter Details Date Type Department Care Team (Late st Contact Info) Description 07/20/2025 8:32 AM EDT Hospital Encounter [facility] [address] [place] [address] Elaine Gaming FNP [address] [place] [phone] [email or web address] Social History Tobacco Use Types Packs/Day [...] clinician's provided indication for this examination in [facility]: Pain; pain for 3 weeks with leg swelling COMPARISON: None FINDINGS: Left Knee: No acute fracture or dislocation. Small knee joint effusion. Procedure Note Aguilar Gandhi MD - 07/20/2025 XR KNEE 4 OR MORE VIEWS (LEFT) Referring clinician's provided indication for this examination in [facility]:Pain; pain for 3 weeks with leg swelling COMPARISON: None FINDINGS: Left Knee: No acute fracture or dislocation. Small knee joint effusion. IMPRESSION: No acute fracture or dislocation. Small knee joint effusion. Elaine Gaming PRINTED CIRCUIT BOARD REWORKER IMG XR LOWER EXTREMITY Yue l Result documented in this encounter Visit Diagnoses Not on filedocumented in this encounter Care Teams Official Court Interpreter Relationship Specialty Start Date End Date Gloria Orourke MD [address] [place] [address] Drive [address] [place] [address] PCP - General Internal Medicine 06/03/21 documented as of this encounter Additional Source Comments The information contained in this document represents components of the legal health record. It is not the complete legal health record.[facility]
--- NOTE | 2025-08-14 10:07 | MHC.PC.OV ---
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 Transferring care from Dr Orourke. Medical records have been requested and have received. Vacuum Technician Required: No Coffee Urn Attendant: Not Required per policy Accompanied by: Self / Same As Patient Allergies vibegron (From Gemtesa) Allergy (Intermediate, Verified 08/14/25 10:19) Headache amoxicillin (Augmentin) Allergy (Unknown, Verified 08/14/25 10:19) nausea and vomiting clavulanic acid (Augmentin) Allergy (Unknown, Verified 08/14/25 10:19) nausea and vomiting oxycodone Adverse Reaction (Verified 08/14/25 10:19) Confusion Medication List - Last Reconciled 08/14/25 by Isaac Guevara MD atorvastatin 20 mg PO DAILY digoxin 125 mcg PO DAILY finasteride 5 mg PO DAILY lisinopril 20 mg PO DAILY 90 days metoprolol tartrate 100 mg PO BID rivaroxaban (Xarelto) 20 mg PO QPM vitamin B complex 1 tab PO DAILY Tobacco use date assessed: 08/14/25 Fall risk assessment: No Falls in past year Last assessed Fall Risk: 08/14/25 Dental Screening Dental Screen Date: 08/14/25 Did you have a dental visit in the last 12 months?: Yes Did you have a dental problem in the last 6 months where you did not have access to dental care?: No Was dental information given to patient?: Patient has dentist HPI HPI Comments History of Present Illness Details The patient is a 75-year-old male presenting to establish care. The patient experienced an attack of gout and bursitis, which were managed at urgent care. He has a history of atrial fibrillation since 2009 and has been on Xarelto since 2012. In December, the patient underwent open-heart surgery for an aortic aneurysm and valve replacement. Post-surgery, he experienced discomfort in his left leg, which worsened upon returning home, leading to a diagnosis of peripheral neuropathy. He underwent lower extremity US which was negative for any blood clot. The patient was prescribed gabapentin, initially at 100 mg three times a day, which was increased to 300 mg four times a day. He self discontinued the medication due to excessive sedation. Recently, the patient was diagnosed with prostate cancer after a biopsy revealed cancer cells in three spots. The urologist recommended radiation therapy and potentially chemotherapy. The patient has a history of arthritis, primarily affecting his right knee, and has been advised against surgery due to his age and heart condition. He reports a history of smoking from age 15 to 25 and has been smoke-free for 50 years. He remains active, cutting his own grass and working at the [employer] annually. [facility], [facility] Medical History (Updated 08/14/25 @ 11:20 by Isaac Guevara MD) Ascending aortic aneurysm Aortic regurgitation Chronic atrial fibrillation HTN (hypertension) Surgical History (Updated 08/14/25 @ 10:23 by RANDAL Humphries) History of prostate biopsy History of open heart surgery History of hernia surgery History of tonsillectomy Family History (Updated 08/14/25 @ 10:08 by RANDAL Humphries) Father No problems noted. Mother Diabetes Social History (Updated 08/14/25 @ 10:24 by RANDAL Humphries) Housing: House Alcohol intake: never Patient Tobacco Use Status: Former Tobacco user e-Cigarette/Vaping Use: Never Used Second Hand Smoke Exposure: Yes service: No Current occupational status: retired Cognitive needs: No Hearing needs: Yes (Hearing aide) Vision needs: Yes (Glasses) Questionnaire PHQ-9 Over the last 2 weeks, how often have you been bothered by any of the following problems? 1. Little interest or pleasure in doing things: several days 2. Feeling down, depressed, or hopeless: not at all 3. Trouble falling or staying asleep, or sleeping too much: not at all 4. Feeling tired or having little energy: not at all 5. Poor appetite or overeating: not at all 6. Feeling bad about yourself - or that you are a failure or have let yourself or your family down: not at all 7. Trouble concentrating on things, such as reading the newspaper or watching television: not at all 8. Moving or speaking so slowly that other people could have noticed. Or the opposite - being so fidgety or restless that you have been moving around a lot more than usual: not at all 9. Thoughts that you would be better off or of hurting yourself in some way: not at all Total score: 1 Depression Screening Interpretation: Positive Depression Screening Done: Yes Source: Developed by Drs. Jim Chan, Siobhan Ramirez, Brandan Andre and colleagues, with an educational freddie from [employer]. Thrive Questionnaire Date Thrive assessed: 08/14/25 I am a: Patient What is your living situation today?: I have a steady place to live Within the past 12 months, did the food you bought not last and you didn't have the money to get more?: Never true Within the past 12 months, did you worry whether your food would run out before you got money to buy more?: Never true Do you have trouble paying for medicines?: No Do you have trouble getting transportation to medical appointments?: No Do you have trouble paying your heating and electricity bill?: No Do you have trouble taking care of your child, family member or friend?: No Do you have trouble with day-to-day activities such as bathing, preparing meals, shopping, managing finances, etc.?: No Are you currently unemployed and looking for a job?: No Are you interested in more education?: No Please select the resources that you would like help with: None Currently or been in a relationship where the following occur: No concerns reported THRIVE Score: 0 AUDIT C Alcohol Use Questionnaire (AUDIT-C) 1. How often do you have a drink containing alcohol?: Never Total Score: 0 LASHAE-7 AMB Questionnaire LASHAE-7 Date LASHAE - 7 assessed: 08/14/25 Feeling nervous, anxious, or on edge: 0 = Not at all Not being able to stop or control worryin = Not at all Worrying too much about different things: 0 = Not at all Trouble relaxin = Not at all Being so restless that it is hard to sit still: 0 = Not at all Becoming easily annoyed or irritable: 0 = Not at all Feeling afraid as if something awful might happen: 0 = Not at all Total LASHAE-7 score (0-4 normal; 5-9 mild; 10-14 moderate; 15-21 severe): 0 Source: Developed by Drs. Jim Chan, Siobhan Ramirez, Brandan Andre and colleagues, with an educational freddie from [employer]. Review of Systems Const Details: Positives besides what was mentioned in HPI are in BOLD Constitutional: No Weight Change, No Fever, No Chills, No Night Sweats, No Fatigue, No Malaise ENT/Mouth: No Hearing Changes, No Ear Pain, No Nasal Congestion, No Sinus Pain, No Hoarseness, No sore throat, No Rhinorrhea, No Swallowing Difficulty Eyes: No Eye Pain, No Swelling, No Redness, No Foreign Body, No Discharge, No Vision Changes Cardiovascular: No Chest Pain, No SOB, No PND, No Dyspnea on Exertion, No Orthopnea, No Claudication, No Edema, No Palpitations Respiratory: No Cough, No Sputum, No Wheezing, No Smoke Exposure, No Dyspnea Gastrointestinal: No Nausea, No Vomiting, No Diarrhea, No Constipation, No Pain, No Heartburn, No Anorexia, No Dysphagia, No Hematochezia, No Melena, No Flatulence, No Jaundice Genitourinary: No Dysmenorrhea, No DUB, No Dyspareunia, No Dysuria, No Urinary Frequency, No Hematuria, No Urinary Incontinence, No Urgency, No Flank Pain, No Urinary Flow Changes, No Hesitancy Musculoskeletal: No Arthralgias, No Myalgias, No Joint Swelling, No Joint Stiffness, No Back Pain, No Neck Pain, No Injury History Skin: No Skin Lesions, No Pruritis, No Hair Changes, No Breast/Skin Changes, No Nipple Discharge Neuro: No Weakness, No Numbness, No Paresthesias, No Loss of Consciousness, No Syncope, No Dizziness, No Headache, No Coordination Changes, No Recent Falls Psych: No Anxiety/Panic, No Depression, No Insomnia, No Personality Changes, No Delusions, No Rumination, No SI/HI/AH/VH, No Social Issues, No Memory Changes, No Violence/Abuse Hx., No Eating Concerns Heme/Lymph: No Bruising, No Bleeding, No Transfusions History, No Lymphadenopathy Endocrine: No Polyuria, No Polydipsia, No Temperature Intolerance Physical exam (Primary Care) Vital Signs: Last Vital Signs Temp 97.1 F 08/14/25 10:09 Pulse 55 10/17/25 10:09 BP 130/68 08/14/25 10:09 Pulse Ox 96 08/14/25 10:09 Oxygen Delivery Method Room Air 08/14/25 10:09 BMI result Body Mass Index 29.8 Tobacco/Smoking Status: Tobacco use Status Tobacco use date assessed 08/14/25 08/14/25 10:25 Patient Tobacco Use Status Former Tobacco user 08/14/25 10:25 e-Cigarette/Vaping Use Never Used 08/14/25 10:25 PHQ-9: PHQ-9 Score PHQ-9: Total score 1 08/14/25 10:30 Depression Screening Interpretation: Positive Thrive Assessment: Date of Thrive Assessment Date Thrive assessed 08/14/25 08/14/25 10:25 Currently or been in a relationship where the following occur: No concerns reported Const Other: Pertinent findings are in BOLD GENERAL APPEARANCE NAD, activity normal for age, well developed/ well nourished, no cyanosis, pallor, or diaphoresis. EYES lids/conjunctiva normal. EARS/NOSE/THROAT Mucous membranes moist, nares normal, lips/teeth normal uvula midline without oral pharyngeal erythema, exudate or swelling TMs normal bilaterally. No lymphangitis/lymphedema. HEAD/NECK normocephalic atraumatic, no facial trauma, neck is supple. RESPIRATORY respiratory effort normal, speaks in full sentences, no tripod position, no accessory muscle use. Lungs clear to auscultation without rhonchi, wheezes, rales CARDIAC Irregular rate and rhythm, no edema. ABDOMINAL Soft, ND/NT. No evidence of fluid wave. No pulsatile masses on exam, rebound tenderness, Bradley sign or pain over Mcburney's point. MUSCLES/EXTREMITIES No abnormal range of motion, no swelling. SKIN Warm, pink and dry. No rashes, dermatoses, petechiae or lesions. NEUROLOGICAL Speech is clear and appropriate. Normal level of consciousness. Gait and coordination are normal. 5/5 strength in all extremities. PSYCH Normal mood and affect. Judgement/competence is appropriate Office Procedures Flu Questionnaire Does the patient have a severe egg allergy?: No Does the patient have severe life threatening allergies?: No Does the patient have a fever or illness today?: No Has the patient ever had Guillain-Louviers Syndrome?: No Has the patient ever had any past reaction to a flu shot?: No Immunizations Fluarix [id number] (PF) 45 mcg (15 mcg x 3)/0.5 mL IM syringe Performing Provider: Isaac Guevara MD [facility] Administered by: Humera Gann RN on 08/14/25 11:01 Dose Route Admin Location Dispensed Lot Number Expiration Date [facility] [employer] 0.5 mL IM Left Deltoid 0.5 mL [id number] 04/27/26 [id number] [employer] VIS Given Date VIS Provided VIS Publication Date 08/14/25 Single Vaccine 24 Eligibility Eligibility Date Funding Source Not [facility] Eligible 08/14/25 Private Coding Level of Care Code New Pt Level 5 (90819) New Pt Prev Care >65yr (16381) Diagnoses Healthcare maintenance Z00.00 Neuropathy G62.9 Status post aortic valve replacement Z95.2 Chronic atrial fibrillation I48.20 Status post ascending aortic aneurysm repair Z98.890; Z86.79 Prostate cancer C61 Time Spent (min) 40 Assessment & Plan Assessment & Plan (1) Healthcare maintenance: Code(s): Z00.00 - Encounter for general adult medical examination without abnormal findings Category: Medical Plan: CBC, CMP, Lipid panel, A1C, TSH w T4, vit D. Done recently. Shingles 2 doses when >50 yo. We will discuss next visit. COVID: two doses. Done in the past. Pneumococcal: 19-64. Done in the past. Flu vaccine: Today. Tdap: Done in 2024. Repeat 2034. Colonoscopy: 45-75. Aged out. AAA: 65 -75. Aged out. CT lun - 80. NI. PSA: 50 -70 every two years. Found to have prostate cancer with plan for radiation/chemotherapy. Follows with Urology. HIV: NI. HBV: NI. HCV: NI (2) Neuropathy: Code(s): G62.9 - Polyneuropathy, unspecified Category: Medical Plan: Take 100 mg Daily for 1 week. 100 mg Two times per day to 1 week. 200 mg Two times per day for 3 weeks. Continue 200 mg BID indefinitely if it is working. Increase to 300 mg two times per day if it is not working Neurology referral. (3) Status post aortic valve replacement: Comment: Bioprosthetic, concomitant with ascending aortic repair Code(s): Z95.2 - Presence of prosthetic heart valve Category: Surgical Plan: Follows with Dr. Carnes. (4) Chronic atrial fibrillation: Comment: Maze procedure done during ascending aortic repair, without long-term success Code(s): I48.20 - Chronic atrial fibrillation, unspecified Category: Medical Plan: Continue Rivaroxaban and metoprolol. Started recently on Digoxin. Follows with Dr. Carnes. (5) Status post ascending aortic aneurysm repair: Code(s): Z98.890 - Other specified postprocedural states; Z86.79 - Personal history of other diseases of the circulatory system Category: Surgical Plan: Follows with Dr. Carnes. (6) Prostate cancer: Code(s): C61 - Malignant neoplasm of prostate Category: Medical Plan: Follows with Urology who recommended radiation therapy and potentially chemotherapy. Patient will continue to follow with Urology. Continue Finasteride. Plan During the visit, we discussed the management of peripheral neuropathy with gabapentin, emphasizing the need for careful titration to avoid sedation. Patient to see Neurology. We also reviewed the recent prostate cancer diagnosis and the plan to consult with the [facility] for potential radiation therapy. The importance of regular PSA monitoring was highlighted. For atrial fibrillation, continued management with Dr. Hughes was advised, including regular follow-ups. We also discussed the management of arthritis symptoms with ltxc-kuc-ywplzxy analgesics and topical treatments. The patient agreed to receive the influenza vaccination today. Orders: Orders Influenza [id number] Immunization Today Z23 - Encounter for immunization TSH reflex Free T4 Today Z00.00 - Encounter for general adult medical examination without abnormal findings Vitamin D 1,25 dihydroxy Today Z00.00 - Encounter for general adult medical examination without abnormal findings Medications: New gabapentin Take 100 mg Daily for 1 week. 100 mg Two times per day to 1 week. 200 mg Two times per day for 3 weeks. Continue 200 mg per day indefinitely if it is working. Increase to 300 mg two times per day if it is not working 100 mg PO DAILY 90 caps 3RF
[2025-08-14 10:09] VITALS: BP 130/68; PULSE 55; TEMP 36.2; O2SAT 96; BMI 29.8
--- OUTSIDE RECORDS SUMMARY | 2025-08-14 11:39 | XMS_ITS | Encounter Summary ---
Author Organization [facility] Address [address] [place] [address] Phone Care Team Providers Care Estimator Paperboard Boxes Name Role Phone Gloria Orourke MD Primary Care Provider [phone] Encounter Details Date Type Department Care Team (Late st Contact Info) Description 06/09/2021 Procedure Pass OR Admitting Dept - Virtual Department [address] [place] [address] Social History Tobacco Use Types Packs/Day Years [...] on filedocumented in this encounter Care Teams Estimator Paperboard Boxes Relationship Specialty Start Date End Date Gloria Orourke MD [address] [place] [phone] PCP - General Internal Medicine 06/03/21 documented as of this encounter Additional Source Comments The information contained in this document represents components of the legal health record. It is not the complete legal health record.[facility]
--- OUTSIDE RECORDS SUMMARY | 2025-08-14 11:39 | XMS_ITS | Encounter Summary ---
Author Organization [facility] Address [address] [place] [address] Phone Care Team Providers Care Wood Cabinet Finisher Name Role Phone Gloria Orourke MD Primary Care Provider [phone] Encounter Details Date Type Department Care Team (Late st Contact Info) Description 06/04/2021 Procedure Pass OR Admitting Dept - Virtual Department [address] [place] [address] Social History Tobacco Use Types Packs/Day Years [...] on filedocumented in this encounter Care Teams Wood Cabinet Finisher Relationship Specialty Start Date End Date Gloria Orourke MD [address] [place] [id number] PCP - General Internal Medicine 06/03/21 documented as of this encounter Additional Source Comments The information contained in this document represents components of the legal health record. It is not the complete legal health record.[facility]
--- OUTSIDE RECORDS SUMMARY | 2025-08-14 11:39 | XMS_ITS | Clinical Summary ---
Author Organization [address] [facility] Address [address] [place] [address] Phone Care Team Providers Care Manufacturing Engineer Assembly Name Role Phone Physician, Pcp Unknown Primary Care Provider Savannah vailable Encounters Date Type Department Care Team Description 07/29/2025 Lab Requisition [facility] - Main Lab [address] [facility] [place] [address] Jaiden Beaver MD Benign prostatic [...] (07/28/2025) Final Diagnosis A. Prostate, Left [place] Biopsy: - Benign prostatic tissue. B. Prostate, Left Lateral [place] Biopsy: - Benign prostatic tissue. C. Prostate, Left [place] Biopsy: - Benign prostatic tissue. D. Prostate, Left Lateral [place] Biopsy: - Benign prostatic tissue. E. Prostate, Left [place] Biopsy: - Benign prostatic tissue. F. Prostate, Left Lateral [place] Biopsy: - Benign prostatic tissue. G. Prostate, Right [place] Biopsy: - Benign prostatic tissue. H. Prostate, Right Lateral [place] Biopsy: - Benign prostatic tissue. I. Prostate, [...] carcinoma is present. 07/31/2025 12:51 PM EDT [facility] at 1250 EDT Clinical Information Elevated PSA N40.1 PSA: 4.9 (05/21/25) [id number] 07/31/2025 12:51 PM EDT [facility] Gross Description A. Prostate, Left [place] Biopsy: Received, properly labeled, are two H and E stained slides and two unstained slides. B. Prostate, Left Lateral [place] Biopsy: Received, properly labeled, are two H [...] two unstained slides. G. Prostate, Right [place] Biopsy: Received, properly labeled, are two H and E stained slides and two unstained slides. H. Prostate, Right Lateral [place] Biopsy: Received, properly labeled, are two H [...] unstained slides. /al 07/31/2025 12:51 PM EDT [facility] Disclaimer Unless otherwise specified, all tissue is 10% NB formalin fixed and paraffin embedded. Technical pathology services provided by [facility] at [address], [place] [address] (CLIA #[id number]/Sofi Liriano MD, Chief Compressor Station Engineer) 07/31/2025 12:51 PM EDT [facility]) [facility] Tissue Prostate / Unknown 07/28/20252024 [...] Beaver MD LAB PATHOLOGY ORDERABLES Final Result [facility] ([facility]) [facility] [address] [place] [address], [place] [phone] from Last 3 Months Insurance MEDICARE [facility] Care Teams Manufacturing Engineer Assembly Relationship Specialty Start Date End Date Physician, Pcp Unknown PCP - General 07/29/25
--- OUTSIDE RECORDS SUMMARY | 2025-08-14 11:39 | XMS_ITS | Clinical Summary ---
Author Organization [facility] Address [address] [place] [phone] Phone Care Team Providers Care Hand Thermal Cutter Name Role Phone Gloria Orourke MD Primary Care Provider [phone] Allergies Active Allergy Reactions Criticality Noted Date [...] Description 07/20/2025 8:32 AM EDT Hospital Encounter [facility] [address] [place] [address] [id number] Elaine Gaming FNP 07/20/2025 8:10 AM EDT Office Visit [facility] at [address] [address] Elaine Gaming, REGIONAL SAFETY MANAGER Acute pain of left knee (Primary Dx); [...] this topic Medical Devices Implanted Type Area Floriculturist Device Identifier Shelf Expiration Date Model / Serial / Lot Mesh Mesh Mesh Surgical 15cm 8 Hernia Prolene Polypropylene Nonabsorbable Repair Bx/6ea - [id number] Implanted:Qty: 1 on 06/09/2021 by Jomar Grimm MD at [facility] STANDARD Right: Inguinal JNJ ETHICON / DIVISION OF J 07/28/2025 [id number] / / [id number] Procedures Procedure Name [...] clinician's provided indication for this examination in [facility]: Pain; pain for 3 weeks with leg swelling COMPARISON: None FINDINGS: Left Knee: No acute fracture or dislocation. Small knee joint effusion. Procedure Note Aguilar Gandhi MD - 07/20/2025 XR KNEE 4 OR MORE VIEWS (LEFT) Referring clinician's provided indication for this examination in [facility]:Pain; pain for 3 weeks with leg swelling COMPARISON: None FINDINGS: Left Knee: No acute fracture or dislocation. Small knee joint effusion. IMPRESSION: No acute fracture or dislocation. Small knee joint effusion. us Elaine Gaming REGIONAL SAFETY MANAGER IMG XR LOWER EXTREMITY Yue l Result * (ABNORMAL) Basic metabolic panel (06/03/2021 10:04 PM EDT) SODIUM 142 133 - 146 mmol/L [facility] CHLORIDE 106 96 - 108 mmol/L [facility] POTASSIUM 3.8 3.3 - 5.1 mmol/L [facility] Comment:Specimen slightly he molyzed, result may be falsely elevated. CO2 25 21 - 35 mmol/L [facility] BUN 24(H) 6 - 19 mg/dL [facility] CREATININE 0.90 0.5 - 1.5 mg/dL [facility] GLUCOSE 115(H) 70 - 99 mg/dL [facility] CALCIUM 10.0 8.4 - 10.3 mg/dL [facility] EGFR 84 >59 mL/min/1.7 3m2 [facility] Comment:Estimated glomerular filtration rate calculated using the CKD-EPI equation. ANION GAP 15 10 - 20 mmol/L [facility] Blood 06/03/2021 10:0 4 PM EDT 06/03/2021 10:18 PM EDT us Buster Be DO LAB BLOOD ORDERABLES Final Re sult [facility] Organization Address City/State/ZIP Co de Phone Number [facility] [address] [place], [place] [phone] from Last 3 Months or Most Recently Relevant to Health Maintenance Insurance [employer] MED[employer] SUPPLEMENT MEDICARE PART A & B [employer] SUPPLEMENT MEDICARE PART A & B [employer] MED[employer] SUPPLEMENT MEDICARE PART A & B [employer] MEDEX SUPPLEMENT MEDICARE PART A & B [employer] MEDEX SUPPLEMENT MEDICARE PART A & B [employer] MEDEX SUPPLEMENT MEDICARE PART A & B [employer] MEDEX SUPPLEMENT MEDICARE PART A & B Member Subscriber Plan / Payer (Ef fective 2014-Present) Name:Eric Ferreira Member ID:[id number] Relation to Subscriber:Self Name:Eric Ferreira Subscriber ID:[id number] Payer ID:[id number] Group ID:Not on file Type:Medicare Address: [facility] [address] [place] [address] [employer] MEDEX SUPPLEMENT MEDICARE PART A & B [employer] MEDEX SUPPLEMENT MEDICARE PART A & B Care Teams Hand Thermal Cutter Relationship Specialty Start Date End Date Gloria Orourke MD [address] [place] [address] [place] [phone] PCP - General Internal Medicine 06/03/21 Additional Source Comments The information contained in this document represents components of the legal health record. It is not the complete legal health record.[facility]
--- OUTSIDE RECORDS SUMMARY | 2025-08-14 11:39 | XMS_ITS | Encounter Summary ---
[facility] Organization [facility] Address [address] [place] [address] Care Team Providers Care Manager Cafe Name Role Phone Physician, Pcp Unknown Primary Care Provider Savannah vailable Encounter Details Date Type Department Care Team (Late st Contact Info) Description 07/29/[address] [facility] - Main Lab 299 [facility] [place] [address] Jaiden Beaver MD [address] [place] [phone] Benign prostatic hyperplasia with lower urinary tract [...] (07/28/2025) Final Diagnosis A. Prostate, Left Middle [place] Biopsy: - Benign prostatic tissue. B. Prostate, Left Lateral [place] Biopsy: - Benign prostatic tissue. C. Prostate, Left Middle [place] Biopsy: - Benign prostatic tissue. D. Prostate, Left Lateral [place] Biopsy: - Benign prostatic tissue. E. Prostate, Left Middle Base Biopsy: - Benign prostatic tissue. F. Prostate, Left Lateral Base Biopsy: - Benign prostatic tissue. G. Prostate, Right Middle [place] Biopsy: - Benign prostatic tissue. H. Prostate, Right Lateral [place] Biopsy: - Benign prostatic tissue. I. Prostate, [...] acinar adenocarcinoma (conventional type), grade group 2 (Elberfeld score 3+4=7). - Percentage pattern 4: 10%. - Tumor continuously involves 56% of 1 of 1 tissue core. M. Prostate, Right PZ Lesion Biopsy: - Prostatic acinar adenocarcinoma (conventional type), grade group 2 (Elberfeld score 3+4=7). - Percentage pattern 4: 40%. - Tumor continuously involves 25% of overall tissue, present in 3 of 3 tissue cores. - Intraductal carcinoma is present. 07/31/2025 12:51 PM EDT [facility] at 1250 EDT Clinical Information Elevated PSA N40.1 PSA: 4.9 (05/21/25) [id number] 07/31/2025 12:51 PM EDT [facility] Gross Description A. Prostate, Left Middle [place] Biopsy: Received, properly labeled, are two H and E stained slides and two unstained slides. B. Prostate, Left Lateral [place] Biopsy: Received, properly labeled, are two H [...] two unstained slides. G. Prostate, Right Middle [place] Biopsy: Received, properly labeled, are two H and E stained slides and two unstained slides. H. Prostate, Right Lateral [place] Biopsy: Received, properly labeled, are two H [...] unstained slides. /al 07/31/2025 12:51 PM EDT [facility] Disclaimer Unless otherwise specified, all tissue is 10% NB formalin fixed and paraffin embedded. Technical pathology services provided by [facility] at [address] [place] [address] [address], [place] [address] (CLIA #[id number]/Sofi Liriano MD, Neuropsychology Service Director) 07/31/2025 12:51 PM EDT [facility] Tissue Prostate / Unknown 07/28/20252024 [...] Beaver MD LAB PATHOLOGY ORDERABLES Final Result [facility] ([facility]) [facility] [address] [place] [address], [place] [phone] documented in this encounter Visit Diagnoses Diagnosis Benign prostatic hyperplasia with lower urinary tract symptoms documented in this encounter Care Teams Manager Cafe Relationship Specialty Start Date End Date Physician, Pcp Unknown PCP - General 07/29/25 documented as of this encounter
--- OUTSIDE RECORDS SUMMARY | 2025-08-14 11:40 | XMS_ITS | Patient Health Record ---
Author Organization [facility] Address [address] [facility] [address] [place] [address] Support Name Relationship Address Phone Unavailable Emergency Contact Unknown Unavailabl e LUZ ANDRES Guarantor Unknown Reason For Referral No Information Plan Of Treatment No Information Insurance Providers Payer Name Payer Address Payer Phone Subscriber Number Group Number Insured Name Patient Relationship to Insured Coverage Start Date Coverage End Date DO NOT USE [place] [address] [place] [address] [phone] [id number] LUZ ANDRES Self - patient is the insured
--- OUTSIDE RECORDS SUMMARY | 2025-08-14 11:40 | XMS_ITS | Patient Health Record ---
Author Organization [facility] Address [address] [place] [address] Care Team Providers Care Color Technician Name Role Phone Po Gloria CANTU Primary Care Provider Jim Solis [phone] Reason For Referral No Information Medications Medication [...] Status Risk Notes Problem Colon cancer screening (762907112) Colon cancer screening (V76.51) Active confirmed Problem Diverticulitis of colon (225590557) Diverticulitis of colon (562.11) Active confirmed Problem Imaging of gastrointestinal tract abnormal (893318005) Abnormal CT scan, gastrointestinal tract (793.4) Active confirmed Plan Of Treatment Future Test Test Name Order Date COLONOSCOPY 03/11/2015 Insurance Providers Payer Name Payer Address Payer Phone Subscriber Number Group Number Insured Name Patient Relationship to Insured Coverage Start Date Coverage End Date MEDICARE OF [place] [address] [place] [address] [id number] LUZ ANDRES Self - patient is the insured MEDEX ATTN CLAIMS [address] [place] [address] [phone] [id number] LUZ ANDRES Self - patient is the insured Medical (General) History Medical History History ICD Code Screening colonoscopy 005--negative except for some diverticula in the ascending colon, moderate diverticulosis in the sigmoid colon, and internal hemorrhoids Denies TX,DM,CVA,Lung disease,renal dise ase HTN A.fib--had cardio[place] [address] Zee Hebert--on Xarelto sigmoid diverticulitis in [facility] 2014-confirmed on CT scan-treated with outpatient antibiotics. Surgical History Surgery Date(Month/Year) Umbilical hernia repair 2000 tonsillectomy
== END 2025-08-14 11:22 | disposition home or self-care (01) ==
LOC: HO.HMCH 10:02
PROVIDERS: PCP Internal Medicine; Visit Provider Internal Medicine
DX: I48.20 Chronic atrial fibrillation, unspecified (principal); C61 Malignant neoplasm of prostate; G62.9 Polyneuropathy, unspecified; Z95.2 Presence of prosthetic heart valve; Z98.890 Other specified postprocedural states; Z86.79 Personal history of other diseases of the circulatory system; Z23 Encounter for immunization

== ENCOUNTER → 2025-08-14 10:01 | Outpatient (BNVA) | payer MEDICARE, SELFPAY | PROVIDERS: PCP Internal Medicine; Visit Provider Internal Medicine | DX: Z00.00 Encounter for general adult medical examination without abnormal findings (principal); M10.9 Gout, unspecified; I48.91 Unspecified atrial fibrillation; G62.9 Polyneuropathy, unspecified; C61 Malignant neoplasm of prostate; M17.11 Unilateral primary osteoarthritis, right knee; I48.20 Chronic atrial fibrillation, unspecified; Z23 Encounter for immunization; Z98.890 Other specified postprocedural states; Z86.79 Personal history of other diseases of the circulatory system; Z87.891 Personal history of nicotine dependence; Z79.899 Other long term (current) drug therapy; Z79.01 Long term (current) use of anticoagulants; Z95.2 Presence of prosthetic heart valve | CPT/HCPCS: 90471; 90656; 96127; 99202 ==

== ENCOUNTER 2025-08-21 07:46 | Outpatient (REF) | payer MEDICARE, SELFPAY ==
--- OUTSIDE RECORDS SUMMARY | 2022-03-16 18:49 | XMS_ITS | Encounter Summary ---
Author Organization [facility] Address [address] [facility] [address] [place] [address] Phone Care Team Providers Care Oracle Engineer Name Role Phone Gloria Orourke MD Primary Care Provider [phone] Encounter Details Date Type Department Care Team (Late st Contact Info) Description 03/16/2022 6:49 PM EDT Hospital Encounter [facility] [address] [place] [address] Elaine Gaming FNP [address] [place] [phone] [email or web address] Social History Tobacco Use Types Packs/Day [...] edited the report originally createdby Jerrell Solomon. Ealine Gaming BANANA GRADER IMG XR UPPER EXTREMITY Yue l Result documented in this encounter Visit Diagnoses Not on filedocumented in this encounter Care Teams Oracle Engineer Relationship Specialty Start Date End Date Gloria Orourke MD [address] [place] [address] [place] [phone] PCP - General Internal Medicine 06/03/21 documented as of this encounter Additional Source Comments The information contained in this document represents components of the legal health record. It is not the complete legal health record.[facility]
--- OUTSIDE RECORDS SUMMARY | 2023-04-29 09:39 | XMS_ITS | Encounter Summary ---
Author Organization [facility] Address [address] [place] [address] Phone Care Team Providers Care Asset Specialist Name Role Phone Gloria Orourke MD Primary Care Provider [phone] Encounter Details Date Type Department Care Team (Late st Contact Info) Description 04/29/2023 9:39 AM EDT Hospital Encounter [facility] [address] [place] [address] Amanda Henning, COPY READER [address] [place] [address] [email or web address] Social History Tobacco Use Types Packs/Day Years [...] fracture or dislocation. us Amanda B Tierneyll COPY READER IMG XR LOWER EXTREMITY Yue l Result documented in this encounter Visit Diagnoses Not on filedocumented in this encounter Care Teams Asset Specialist Relationship Specialty Start Date End Date Gloria Orourke MD [address] [place] [address] Drive [address] [place] [address] PCP - General Internal Medicine 06/03/21 documented as of this encounter Additional Source Comments The information contained in this document represents components of the legal health record. It is not the complete legal health record.[facility]
--- OUTSIDE RECORDS SUMMARY | 2024-03-25 08:52 | XMS_ITS | Encounter Summary ---
Author Organization [facility] Address [address] [employer] [facility] [address] [place] [phone] Phone Care Team Providers Care Client Engagement Specialist Name Role Phone Gloria Orourke MD Primary Care Provider [phone] Encounter Details Date Type Department Care Team (Late st Contact Info) Description 03/25/2024 8:52 AM EDT Hospital Encounter [facility] [address] [place] [id number] Maritza Rader CNP [address] [place] [phone] [email or web address] Social History Tobacco Use Types Packs/Day Years [...] report originally createdby Artur Mcdonald. Maritza Rader PLATE CONDITIONER IMG XR UPPER EXTREMITY Yue l Result documented in this encounter Visit Diagnoses Not on filedocumented in this encounter Care Teams Client Engagement Specialist Relationship Specialty Start Date End Date Gloria Orourke MD [address] [place] [address] PCP - General Internal Medicine 06/03/21 documented as of this encounter Additional Source Comments The information contained in this document represents components of the legal health record. It is not the complete legal health record.[facility]
--- OUTSIDE RECORDS SUMMARY | 2025-07-20 08:32 | XMS_ITS | Encounter Summary ---
Author Organization [facility] Address [address] [employer] [facility] [address] [place] [address] Phone Care Team Providers Care Mill Operator Head Name Role Phone Gloria Orourke MD Primary Care Provider [phone] Encounter Details Date Type Department Care Team (Late st Contact Info) Description 07/20/2025 8:32 AM EDT Hospital Encounter [facility] [address] [place] [phone] Elaine Gaming FNP [address] [place] [phone] [email or web address] Social History Tobacco Use Types Packs/Day Years [...] clinician's provided indication for this examination in [facility]: Pain; pain for 3 weeks with leg swelling COMPARISON: None FINDINGS: Left Knee: No acute fracture or dislocation. Small knee joint effusion. Procedure Note Aguilar Gandhi MD - 07/20/2025 XR KNEE 4 OR MORE VIEWS (LEFT) Referring clinician's provided indication for this examination in [facility]:Pain; pain for 3 weeks with leg swelling COMPARISON: None FINDINGS: Left Knee: No acute fracture or dislocation. Small knee joint effusion. IMPRESSION: No acute fracture or dislocation. Small knee joint effusion. Elaine Gaming PECAN GROWER IMG XR LOWER EXTREMITY Yue l Result documented in this encounter Visit Diagnoses Not on filedocumented in this encounter Care Teams Mill Operator Head Relationship Specialty Start Date End Date Gloria Orourke MD [address] [place] [address] Drive [address] [place] [address] PCP - General Internal Medicine 06/03/21 documented as of this encounter Additional Source Comments The information contained in this document represents components of the legal health record. It is not the complete legal health record.[facility]
--- OUTSIDE RECORDS SUMMARY | 2025-08-21 07:49 | XMS_ITS | Clinical Summary ---
Author Organization [facility] Address [address] [place] [address] Phone Care Team Providers Care Straightener Gun Parts Name Role Phone Physician, Pcp Unknown Primary Care Provider Savannah vailable Encounters Date Type Department Care Team Description 07/29/2025 Lab Requisition [facility] - Main Lab 299 [facility] [place] [address] Jaiden Beaver MD Benign prostatic [...] (07/28/2025) Final Diagnosis A. Prostate, Left Middle [place] Biopsy: - Benign prostatic tissue. B. Prostate, Left Lateral [place] Biopsy: - Benign prostatic tissue. C. Prostate, Left Middle [place] Biopsy: - Benign prostatic tissue. D. Prostate, Left Lateral [place] Biopsy: - Benign prostatic tissue. E. Prostate, Left Middle [place] Biopsy: - Benign prostatic tissue. F. Prostate, Left Lateral Base Biopsy: - Benign prostatic tissue. G. Prostate, Right Middle [place] Biopsy: - Benign prostatic tissue. H. Prostate, Right Lateral [place] Biopsy: - Benign prostatic tissue. I. Prostate, [...] is present. 07/31/2025 12:51 PM EDT [facility] at 1250 EDT Clinical Information Elevated PSA N40.1 PSA: 4.9 (05/21/25) [id number] 07/31/2025 12:51 PM EDT [facility] Gross Description A. Prostate, Left Middle [place] Biopsy: Received, properly labeled, are two H and E stained slides and two unstained slides. B. Prostate, Left Lateral [place] Biopsy: Received, properly labeled, are two H [...] two unstained slides. G. Prostate, Right Middle [place] Biopsy: Received, properly labeled, are two H and E stained slides and two unstained slides. H. Prostate, Right Lateral [place] Biopsy: Received, properly labeled, are two H [...] slides. /al 07/31/2025 12:51 PM EDT [facility] Disclaimer Unless otherwise specified, all tissue is 10% NB formalin fixed and paraffin embedded. Technical pathology services provided by [facility] at [address], [place] [address] (CLIA #[id number]/Sofi Liriano MD, Enterprise Account Manager) 07/31/2025 12:51 PM EDT [facility]) [facility] Tissue Prostate / Unknown [...] Beaver MD LAB PATHOLOGY ORDERABLES Final Result [facility] ([facility]) [facility] [address] [place] [address], [place] [phone] from Last 3 Months Insurance MEDICARE [facility] Care Teams Straightener Gun Parts Relationship Specialty Start Date End Date Physician, Pcp Unknown PCP - General 07/29/25
--- OUTSIDE RECORDS SUMMARY | 2025-08-21 07:49 | XMS_ITS | Encounter Summary ---
Author Organization [facility] Address [address] [facility] [address] [place] [address] Phone Care Team Providers Care Ship/Rec/Doc Control Name Role Phone Gloria Orourke MD Primary Care Provider [phone] Encounter Details Date Type Department Care Team (Late st Contact Info) Description 06/09/2021 Procedure Pass OR Admitting Dept - Virtual Department [address] [place] [address] Social History Tobacco Use Types Packs/Day Years [...] on filedocumented in this encounter Care Teams Ship/Rec/Doc Control Relationship Specialty Start Date End Date Gloria Orourke MD [address] [place] [phone] PCP - General Internal Medicine 06/03/21 documented as of this encounter Additional Source Comments The information contained in this document represents components of the legal health record. It is not the complete legal health record.[facility]
--- OUTSIDE RECORDS SUMMARY | 2025-08-21 07:49 | XMS_ITS | Clinical Summary ---
Author Organization [facility] Address [address] [facility] [address] [place] [address] Phone Care Team Providers Care Fishing Tool Operator Name Role Phone Gloria Orourke MD Primary Care Provider [phone] Allergies Active Allergy Reactions Criticality Noted Date [...] Description 07/20/2025 8:32 AM EDT Hospital Encounter [facility] [address] [place] [address] [phone] Elaine Gaming FNP 07/20/2025 8:10 AM EDT Office Visit [facility] at [address] [address] Elaine Gaming, ARC CUTTER PL[employer]C Acute pain of left knee (Primary Dx); [...] this topic Medical Devices Implanted Type Area Industrial Machinery Mechanic Device Identifier Shelf Expiration Date Model / Serial / Lot Mesh Mesh Mesh Surgical 15cm 8 Hernia Prolene Polypropylene Nonabsorbable Repair Bx/6ea - [id number] Implanted:Qty: 1 on 06/09/2021 by Jomar Grimm MD at [facility] STANDARD Right: Inguinal JNJ ETHICON / DIVISION OF J 07/28/2025 [id number] II / / [id number] Procedures Procedure Name [...] clinician's provided indication for this examination in [facility]: Pain; pain for 3 weeks with leg swelling COMPARISON: None FINDINGS: Left Knee: No acute fracture or dislocation. Small knee joint effusion. Procedure Note Aguilar Gandhi MD - 07/20/2025 XR KNEE 4 OR MORE VIEWS (LEFT) Referring clinician's provided indication for this examination in [facility]:Pain; pain for 3 weeks with leg swelling COMPARISON: None FINDINGS: Left Knee: No acute fracture or dislocation. Small knee joint effusion. IMPRESSION: No acute fracture or dislocation. Small knee joint effusion. us Elaine Gaming ARC [employer] IMG XR LOWER EXTREMITY Yue l Result * (ABNORMAL) Basic metabolic panel (06/03/2021 10:04 PM EDT) SODIUM 142 133 - 146 mmol/L [facility] CHLORIDE 106 96 - 108 mmol/L [facility] POTASSIUM 3.8 3.3 - 5.1 mmol/L [facility] Comment:Specimen slightly he molyzed, result may be falsely elevated. CO2 25 21 - 35 mmol/L [facility] BUN 24(H) 6 - 19 mg/dL [facility] CREATININE 0.90 0.5 - 1.5 mg/dL [facility] GLUCOSE 115(H) 70 - 99 mg/dL [facility] CALCIUM 10.0 8.4 - 10.3 mg/dL [facility] EGFR 84 >59 mL/min/1.7 3m2 [facility] Comment:Estimated glomerular filtration rate calculated using the CKD-EPI equation. ANION GAP 15 10 - 20 mmol/L [facility] Blood 06/03/2021 10:0 4 PM EDT 06/03/2021 10:18 PM EDT us Buster Be DO LAB BLOOD ORDERABLES Final Re sult [facility] Organization Address City/State/ZIP Co de Phone Number [facility] [address] [place], [place] [phone] from Last 3 Months or Most Recently Relevant to Health Maintenance Insurance [employer] MEDEX SUPPLEMENT MEDICARE PART A & B [employer] MEDEX SUPPLEMENT MEDICARE PART A & B [employer]. MEDEX SUPPLEMENT MEDICARE PART A & B [employer] MEDEX SUPPLEMENT MEDICARE PART A & B [employer] MEDEX SUPPLEMENT MEDICARE PART A & B [employer]. MEDEX SUPPLEMENT Mortgage [employer] Address: [place] [address] MEDICARE PART A & B [employer]. MEDEX SUPPLEMENT MEDICARE PART A & B [employer] MEDEX SUPPLEMENT MEDICARE PART A & B [employer]. MEDEX SUPPLEMENT MEDICARE PART A & B Care Teams Fishing Tool Operator Relationship Specialty Start Date End Date Gloria Orourke MD [address] [place] [address] [place] [phone] PCP - General Internal Medicine 06/03/21 Additional Source Comments The information contained in this document represents components of the legal health record. It is not the complete legal health record.[facility]
--- OUTSIDE RECORDS SUMMARY | 2025-08-21 07:49 | XMS_ITS | Encounter Summary ---
Author Organization [facility] Address [address] [place] [address] Care Team Providers Care Senior Automation Engineer Name Role Phone Physician, Pcp Unknown Primary Care Provider Savannah vailable Encounter Details Date Type Department Care Team (Late st Contact Info) Description 07/29/2025 Lab Requisition [facility] - Main Lab [address] [facility] [place] [address] Jaiden Beaver MD [address] [place] [phone] Benign prostatic hyperplasia with lower urinary tract [...] (07/28/2025) Final Diagnosis A. Prostate, Left Middle [place] Biopsy: - Benign prostatic tissue. B. Prostate, Left Lateral [place] Biopsy: - Benign prostatic tissue. C. Prostate, Left Middle Middle Biopsy: - Benign prostatic tissue. D. Prostate, Left Lateral [place] Biopsy: - Benign prostatic tissue. E. Prostate, Left Middle Base Biopsy: - Benign prostatic tissue. F. Prostate, Left Lateral Base Biopsy: - Benign prostatic tissue. G. Prostate, Right Middle [place] Biopsy: - Benign prostatic tissue. H. Prostate, Right Lateral [place] Biopsy: - Benign prostatic tissue. I. Prostate, [...] acinar adenocarcinoma (conventional type), grade group 2 (Gulliver score 3+4=7). - Percentage pattern 4: 10%. - Tumor continuously involves 56% of 1 of 1 tissue core. M. Prostate, Right PZ Lesion Biopsy: - Prostatic acinar adenocarcinoma (conventional type), grade group 2 (Gulliver score 3+4=7). - Percentage pattern 4: 40%. - Tumor continuously involves 25% of overall tissue, present in 3 of 3 tissue cores. - Intraductal carcinoma is present. 07/31/2025 12:51 PM EDT [facility] at 1250 EDT Clinical Information Elevated PSA N40.1 PSA: 4.9 (05/21/25) [id number] 07/31/2025 12:51 PM EDT [facility] Gross Description A. Prostate, Left Middle [place] Biopsy: Received, properly labeled, are two H and E stained slides and two unstained slides. B. Prostate, Left Lateral [place] Biopsy: Received, properly labeled, are two H [...] two unstained slides. G. Prostate, Right Middle [place] Biopsy: Received, properly labeled, are two H and E stained slides and two unstained slides. H. Prostate, Right Lateral [place] Biopsy: Received, properly labeled, are two H [...] unstained slides. /al 07/31/2025 12:51 PM EDT [facility] Disclaimer Unless otherwise specified, all tissue is 10% NB formalin fixed and paraffin embedded. Technical pathology services provided by [facility] at [address] [place] [address] [address], [place] [address] (CLIA #[id number]/Sofi Liriano MD, Grant Officer) 07/31/2025 12:51 PM EDT [facility] Tissue Prostate / Unknown 07/28/20252024 [...] MD LAB PATHOLOGY ORDERABLES Final Result [facility] ([facility]) [facility] [address] [place] [address], [place] [phone] documented in this encounter Visit Diagnoses Diagnosis Benign prostatic hyperplasia with lower urinary tract symptoms documented in this encounter Care Teams Senior Automation Engineer Relationship Specialty Start Date End Date Physician, Pcp Unknown PCP - General 07/29/25 documented as of this encounter
--- OUTSIDE RECORDS SUMMARY | 2025-08-21 07:49 | XMS_ITS | Encounter Summary ---
Author Organization [facility] Address [address] [facility] [address] [place] [address] Phone Care Team Providers Care Community Case Manager Name Role Phone Gloria Orourke MD Primary Care Provider [phone] Encounter Details Date Type Department Care Team (Late st Contact Info) Description 06/04/2021 Procedure Pass OR Admitting Dept - Virtual Department [address] [place] [address] Social History Tobacco Use Types Packs/Day Years [...] on filedocumented in this encounter Care Teams Community Case Manager Relationship Specialty Start Date End Date Gloria Orourke MD [address] [place] [phone] PCP - General Internal Medicine 06/03/21 documented as of this encounter Additional Source Comments The information contained in this document represents components of the legal health record. It is not the complete legal health record.[facility]
[2025-08-21 09:06] LABS: Digoxin 0.4 ng/mL (0.8-2.0)
[2025-08-25 14:29] LABS: PEU-Protein Creat Ratio Rand 0.250 (0.025-0.148); PEU-Rand. Prot/Creat Ratio 250 mg/g creat (25-148); PEU-Random Ur. Gamma Globulin 11 %; PEU-Random Urine A1 Globulin 6 %; PEU-Random Urine A2 Globulin 7 %; PEU-Random Urine Albumin 65 %; PEU-Random Urine Beta Globulin 12 %; PEU-Random Urine Creatinine 88 mg/dL (20-320); PEU-Random Urine Protein 22 mg/dL (5-25)
[2025-08-25 17:39] LABS: PES - Abn Protein Band 1 0.2 g/dL (NONE DETECTED); Prot Elec - Albumin 4.1 g/dL (3.8-4.8); Prot Elec - Alpha1 0.3 g/dL (0.2-0.3); Prot Elec - Alpha2 0.9 g/dL (0.5-0.9); Prot Elec - Beta 1 0.5 g/dL (0.4-0.6); Prot Elec - Beta 2 0.3 g/dL (0.2-0.5); Prot Elec - Gamma 0.7 g/dL (0.8-1.7); Prot Elec - Total Protein 6.7 g/dL (6.1-8.1)
[2025-08-26 13:23] LABS: Kappa, Serum 159 mg/dL (176-443); Kappa/Lambda Ratio, Serum 1.36 (1.29-2.55); Lambda, Serum 117 mg/dL (91-240)
[2025-08-27 04:03] LABS: VITAMIN D (1,25 OH) D3 29 pg/mL; Vit D (1,25-Dihydroxy) Total 29 pg/mL (18-72); Vitamin D (1,25 OH) D2 <8 pg/mL
== END 2025-08-21 07:47 | disposition home or self-care (01) ==
LOC: HO.LAB 07:46
PROVIDERS: PCP Internal Medicine; Visit Provider Internal Medicine Cardiovascular Disease
DX: Z00.00 Encounter for general adult medical examination without abnormal findings (principal); I48.20 Chronic atrial fibrillation, unspecified
CPT/HCPCS: 36415; 80162; 82570; 82652; 83883; 84156; 84165; 84166; 84443

== ENCOUNTER 2025-09-01 07:22 | Outpatient (AMB) | payer MEDICARE, SELFPAY ==
--- OUTSIDE RECORDS SUMMARY | 2022-03-16 17:49 | XMS_ITS | Encounter Summary ---
Author Organization [facility] Address [address] [facility] [address] [place] [address] Phone Care Team Providers Care Journalism Intern Name Role Phone Gloria Orourke MD Primary Care Provider [phone] Encounter Details Date Type Department Care Team (Late st Contact Info) Description 03/16/2022 6:49 PM EDT Hospital Encounter [facility] [address] [place] [address] Elaine Gaming FNP [address] [place] [phone] [email or web address] Social History Tobacco Use Types Packs/Day [...] report originally createdby Jerrell Solomon. Elaine Gaming DATA SCIENCES DIRECTOR IMG XR UPPER EXTREMITY Yue l Result documented in this encounter Visit Diagnoses Not on filedocumented in this encounter Care Teams Journalism Intern Relationship Specialty Start Date End Date Gloria Orourke MD [address] [place] [address] [place] [phone] PCP - General Internal Medicine 06/03/21 documented as of this encounter Additional Source Comments The information contained in this document represents components of the legal health record. It is not the complete legal health record.[facility]
--- OUTSIDE RECORDS SUMMARY | 2023-04-29 08:39 | XMS_ITS | Encounter Summary ---
Author Organization [facility] Address [address] [place] [address] Phone Care Team Providers Care Rivet Tester Name Role Phone Gloria Orourke MD Primary Care Provider [phone] Encounter Details Date Type Department Care Team (Late st Contact Info) Description 04/29/2023 9:39 AM EDT Hospital Encounter [facility] [address] [place] [address] Amanda Henning, GANG SAW OPERATOR [address] [place] [address] [email or web address] Social History Tobacco Use Types Packs/Day Years [...] fracture or dislocation. us Amanda B Tierneyll GANG SAW OPERATOR IMG XR LOWER EXTREMITY Yue l Result documented in this encounter Visit Diagnoses Not on filedocumented in this encounter Care Teams Rivet Tester Relationship Specialty Start Date End Date Gloria Orourke MD [address] [place] [address] Drive [address] [place] [address] PCP - General Internal Medicine 06/03/21 documented as of this encounter Additional Source Comments The information contained in this document represents components of the legal health record. It is not the complete legal health record.[facility]
--- OUTSIDE RECORDS SUMMARY | 2024-03-25 07:52 | XMS_ITS | Encounter Summary ---
Author Organization [facility] Address [address] [facility] [address] [place] [address] Phone Care Team Providers Care Cost Accounting Manager Name Role Phone Gloria Orourke MD Primary Care Provider [phone] Encounter Details Date Type Department Care Team (Late st Contact Info) Description 03/25/2024 8:52 AM EDT Hospital Encounter [facility] [address] [place] [address] Maritza Rader CNP [address] [place] [address] Social History Tobacco Use Types Packs/Day Years [...] report originally createdby Artur Mcdonald. Maritza Rader CAMPUS AIDE IMG XR UPPER EXTREMITY Yue l Result documented in this encounter Visit Diagnoses Not on filedocumented in this encounter Care Teams Cost Accounting Manager Relationship Specialty Start Date End Date Gloria Orourke MD [address] [facility] [address] [place] [address] PCP - General Internal Medicine 06/03/21 documented as of this encounter Additional Source Comments The information contained in this document represents components of the legal health record. It is not the complete legal health record.[facility]
--- OUTSIDE RECORDS SUMMARY | 2025-07-20 07:32 | XMS_ITS | Encounter Summary ---
Author Organization [facility] Address [address] [facility] [address] [place] [address] Phone Care Team Providers Care Lead Slot Technician Name Role Phone Gloria Orourke MD Primary Care Provider [phone] Encounter Details Date Type Department Care Team (Late st Contact Info) Description 07/20/2025 8:32 AM EDT Hospital Encounter [facility] [address] [place] [address] Elaine Gaming FNP [address] [place] [id number] [email or web address] Social History Tobacco Use Types Packs/Day [...] dislocation. Small knee joint effusion. Elaine Gaming BOTTLE WASHING MACHINE OPERATOR IMG XR LOWER EXTREMITY Yue l Result documented in this encounter Visit Diagnoses Not on filedocumented in this encounter Care Teams Lead Slot Technician Relationship Specialty Start Date End Date Gloria Orourke MD [address] [place] [address] Drive [address] [place] [address] PCP - General Internal Medicine 06/03/21 documented as of this encounter Additional Source Comments The information contained in this document represents components of the legal health record. It is not the complete legal health record.[facility]
--- OUTSIDE RECORDS SUMMARY | 2025-09-01 07:23 | XMS_ITS | Encounter Summary ---
[facility] Address [address] [place] [address] Care Team Providers Care Mounter Brass Wind Instruments Name Role Phone Physician, Pcp Unknown Primary Care Provider Savannah vailable Encounter Details Date Type Department Care Team (Late st Contact Info) Description 07/29/2025 Lab Requisition [facility] - Main Lab [address] [facility] [place] [address] Jaiden Beaver MD [address] [place] [phone] Benign prostatic hyperplasia with lower urinary tract [...] (07/28/2025) Final Diagnosis A. Prostate, Left Middle [place] Biopsy: - Benign prostatic tissue. B. Prostate, Left Lateral [place] Biopsy: - Benign prostatic tissue. C. Prostate, Left Middle Middle Biopsy: - Benign prostatic tissue. D. Prostate, Left Lateral [place] Biopsy: - Benign prostatic tissue. E. Prostate, Left Middle [place] Biopsy: - Benign prostatic tissue. F. Prostate, Left Lateral Base Biopsy: - Benign prostatic tissue. G. Prostate, Right Middle [place] Biopsy: - Benign prostatic tissue. H. Prostate, Right Lateral [place] Biopsy: - Benign prostatic tissue. I. Prostate, [...] acinar adenocarcinoma (conventional type), grade group 2 (Bayside score 3+4=7). - Percentage pattern 4: 10%. - Tumor continuously involves 56% of 1 of 1 tissue core. M. Prostate, Right PZ Lesion Biopsy: - Prostatic acinar adenocarcinoma (conventional type), grade group 2 (Bayside score 3+4=7). - Percentage pattern 4: 40%. - Tumor continuously involves 25% of overall tissue, present in 3 of 3 tissue cores. - Intraductal carcinoma is present. 07/31/2025 12:51 PM EDT [facility] at 1250 EDT Clinical Information Elevated PSA N40.1 PSA: 4.9 (05/21/25) [id number] 07/31/2025 12:51 PM EDT [facility] Gross Description A. Prostate, Left Middle [place] Biopsy: Received, properly labeled, are two H and E stained slides and two unstained slides. B. Prostate, Left Lateral [place] Biopsy: Received, properly labeled, are two H [...] two unstained slides. G. Prostate, Right Middle [place] Biopsy: Received, properly labeled, are two H and E stained slides and two unstained slides. H. Prostate, Right Lateral [place] Biopsy: Received, properly labeled, are two H [...] unstained slides. /al 07/31/2025 12:51 PM EDT [facility] Disclaimer Unless otherwise specified, all tissue is 10% NB formalin fixed and paraffin embedded. Technical pathology services provided by [facility] at [address] [place] [address] [address], [place] [address] (CLIA #[id number]/Sofi Liriano MD, Organ Pipe Maker Metal) 07/31/2025 12:51 PM EDT [facility] Tissue Prostate / Unknown 07/28/20252024 [...] MD LAB PATHOLOGY ORDERABLES Final Result [facility] ([facility]) [facility] [address] [place] [address], [place] [phone] documented in this encounter Visit Diagnoses Diagnosis Benign prostatic hyperplasia with lower urinary tract symptoms documented in this encounter Care Teams Mounter Brass Wind Instruments Relationship Specialty Start Date End Date Physician, Pcp Unknown PCP - General 07/29/25 documented as of this encounter
--- OUTSIDE RECORDS SUMMARY | 2025-09-01 07:23 | XMS_ITS | Clinical Summary ---
Author Organization [facility] Address [address] [place] [address] Phone Care Team Providers Care User Experience Designer Name Role Phone Physician, Pcp Unknown Primary Care Provider Savannah vailable Encounters Date Type Department Care Team Description 07/29/2025 Lab Requisition [facility] - Main Lab 299 [facility] [place] [address] Jaiden Beaver MD Benign prostatic [...] (07/28/2025) Final Diagnosis A. Prostate, Left Middle [place] Biopsy: - Benign prostatic tissue. B. Prostate, Left Lateral [place] Biopsy: - Benign prostatic tissue. C. Prostate, Left Middle [place] Biopsy: - Benign prostatic tissue. D. Prostate, Left Lateral [place] Biopsy: - Benign prostatic tissue. E. Prostate, Left Middle [place] Biopsy: - Benign prostatic tissue. F. Prostate, Left Lateral [place] Biopsy: - Benign prostatic tissue. G. Prostate, Right Middle [place] Biopsy: - Benign prostatic tissue. H. Prostate, Right Lateral [place] Biopsy: - Benign prostatic tissue. I. Prostate, [...] carcinoma is present. 07/31/2025 12:51 PM EDT [facility] at 1250 EDT Clinical Information Elevated PSA N40.1 PSA: 4.9 (05/21/25) [id number] 07/31/2025 12:51 PM EDT [facility] Gross Description A. Prostate, Left Middle [place] Biopsy: Received, properly labeled, are two H and E stained slides and two unstained slides. B. Prostate, Left Lateral [place] Biopsy: Received, properly labeled, are two H [...] two unstained slides. G. Prostate, Right Middle [place] Biopsy: Received, properly labeled, are two H and E stained slides and two unstained slides. H. Prostate, Right Lateral [place] Biopsy: Received, properly labeled, are two H [...] unstained slides. /al 07/31/2025 12:51 PM EDT [facility] Disclaimer Unless otherwise specified, all tissue is 10% NB formalin fixed and paraffin embedded. Technical pathology services provided by [facility] at [address], [place] [address] (CLIA #[id number]/Sofi Liriano MD, Apron Trimmer) 07/31/2025 12:51 PM EDT [facility]) [facility] Tissue Prostate / Unknown [...] Beaver MD LAB PATHOLOGY ORDERABLES Final Result [facility] ([facility]) [facility] [address] [place] [address], [place] [phone] from Last 3 Months Insurance MEDICARE [facility] Care Teams User Experience Designer Relationship Specialty Start Date End Date Physician, Pcp Unknown PCP - General 07/29/25
--- OUTSIDE RECORDS SUMMARY | 2025-09-01 07:24 | XMS_ITS | Patient Health Record ---
Author Organization [facility] Address [address] [facility] [address] [place] [address] Support Name Relationship Address Phone Unavailable Emergency Contact Unknown Unavailabl e LUZ ANDRES Guarantor Unknown Reason For Referral No Information Plan Of Treatment No Information Insurance Providers Payer Name Payer Address Payer Phone Subscriber Number Group Number Insured Name Patient Relationship to Insured Coverage Start Date Coverage End Date DO NOT USE [place] OF [place] [address] [place] [address] [phone] [id number] LUZ ANDRES Self - patient is the insured
--- OUTSIDE RECORDS SUMMARY | 2025-09-01 07:24 | XMS_ITS | Patient Health Record ---
Author Organization [facility] Address [address] [place] [address] Care Team Providers Care Principal Cloud Architect Name Role Phone Po Gloria CANTU Primary Care Provider Jim Solis [phone] Reason For Referral No Information Medications Medication [...] Status Risk Notes Problem Colon cancer screening (690210086) Colon cancer screening (V76.51) Active confirmed Problem Diverticulitis of colon (425273439) Diverticulitis of colon (562.11) Active confirmed Problem Imaging of gastrointestinal tract abnormal (461768938) Abnormal CT scan, gastrointestinal tract (793.4) Active confirmed Plan Of Treatment Future Test Test Name Order Date COLONOSCOPY 03/11/2015 Insurance Providers Payer Name Payer Address Payer Phone Subscriber Number Group Number Insured Name Patient Relationship to Insured Coverage Start Date Coverage End Date [place] [address] [place] [address] [phone] [id number] LUZ ANDRES Self - patient is the insured MEDEX ATTN CLAIMS [address] [place] [address] [id number] LUZ ANDRES Self - patient is the insured Medical (General) History Medical History History ICD Code Screening colonoscopy 005--negative except for some diverticula in the ascending colon, moderate diverticulosis in the sigmoid colon, and internal hemorrhoids Denies [place],DM,CVA,Lung disease,renal dise ase HTN A.fib--had cardio[place] [address] Zee Hebert--on Xarelto sigmoid diverticulitis in [facility] of 2014-confirmed on CT scan-treated with outpatient antibiotics. Surgical History Surgery Date(Month/Year) Umbilical hernia repair 2000 tonsillectomy
--- OUTSIDE RECORDS SUMMARY | 2025-09-01 07:24 | XMS_ITS | Clinical Summary ---
Author Organization [facility] Address [address] [facility] [address] [place] [address] Phone Care Team Providers Care Volunteer Services Specialist Name Role Phone Gloria Orourke MD Primary Care Provider [phone] Allergies Active Allergy Reactions Criticality Noted Date [...] Description 07/20/2025 8:32 AM EDT Hospital Encounter [facility] [address] [place] [address] [id number] Elaine Gaming FNP 07/20/2025 8:10 AM EDT Office Visit [facility] [address] [address] Elaine Gaming, TARGETEER Acute pain of left knee (Primary Dx); [...] Orientation Straight 06/03/2021 8: 57 PM EDT Last Filed Vital Signs Vital [...] this topic Medical Devices Implanted Type Area Machining And Assembly Supervisor Device Identifier Shelf Expiration Date Model / Serial / Lot Mesh Mesh Mesh Surgical 15cm 8 Hernia Prolene Polypropylene Nonabsorbable Repair Bx/6ea - [id number] Implanted:Qty: 1 on 06/09/2021 by Jomar Grimm MD at [facility] STANDARD Right: Inguinal JNJ ETHICON / DIVISION OF J 07/28/2025 [id number] II / / [id number] Procedures Procedure Name Priority Date/Time Associated Diagnosis Comments XR KNEE 4 OR MORE VIEWS (LEFT) Urgent/patient waiting 07/20/2025 8:38 AM EDT Acute pain of left knee BASIC METABOLIC PANEL (BMP) STAT 06/03/2021 10:04 PM EDT from Last [...] clinician's provided indication for this examination in [facility]: Pain; pain for 3 weeks with leg swelling COMPARISON: None FINDINGS: Left Knee: No acute fracture or dislocation. Small knee joint effusion. Procedure Note Aguilar Gandhi MD - 07/20/2025 XR KNEE 4 OR MORE VIEWS (LEFT) Referring clinician's provided indication for this examination in Epic:Pain; pain for 3 weeks with leg swelling COMPARISON: None FINDINGS: Left Knee: No acute fracture or dislocation. Small knee joint effusion. IMPRESSION: No acute fracture or dislocation. Small knee joint effusion. us Elaine Gaming TARGETEER IMG XR LOWER EXTREMITY Yue l Result * (ABNORMAL) Basic metabolic panel (06/03/2021 10:04 PM EDT) SODIUM 142 133 - 146 mmol/L [facility] CHLORIDE 106 96 - 108 mmol/L [facility] POTASSIUM 3.8 3.3 - 5.1 mmol/L [facility] Comment:Specimen slightly he molyzed, result may be falsely elevated. CO2 25 21 - 35 mmol/L [facility] BUN 24(H) 6 - 19 mg/dL [facility] CREATININE 0.90 0.5 - 1.5 mg/dL [facility] GLUCOSE 115(H) 70 - 99 mg/dL [facility] CALCIUM 10.0 8.4 - 10.3 mg/dL [facility] EGFR 84 >59 mL/min/1.7 3m2 [facility] Comment:Estimated glomerular filtration rate calculated using the CKD-EPI equation. ANION GAP 15 10 - 20 mmol/L [facility] Blood 06/03/2021 10:0 4 PM EDT 06/03/2021 10:18 PM EDT us Buster Be DO LAB BLOOD BKR ORDERABLES Yue l Result [facility] [address] [place] [address] from Last 3 Months or Most Recently Relevant to Health Maintenance Insurance [employer] MEDEX SUPPLEMENT MEDICARE PART A & B [employer] MEDEX SUPPLEMENT MEDICARE PART A & B [employer] MEDEX SUPPLEMENT MEDICARE PART A & B [employer] MED[employer] SUPPLEMENT MEDICARE PART A & B [employer] MEDEX SUPPLEMENT MEDICARE PART A & B [employer] MED[employer] SUPPLEMENT MEDICARE PART A & B [employer] MED[employer] SUPPLEMENT MEDICARE PART A & B [employer] MEDEX SUPPLEMENT MEDICARE PART A & B [employer] MEDEX SUPPLEMENT MEDICARE PART A & B Care Teams Volunteer Services Specialist Relationship Specialty Start Date End Date Sharad, Gloria Gutiérrez MD [address] [place] [address] [place] [phone] PCP - General Internal Medicine 06/03/21 Additional Source Comments The information contained in this document represents components of the legal health record. It is not the complete legal health record.[facility]
--- OUTSIDE RECORDS SUMMARY | 2025-09-01 07:24 | XMS_ITS | Encounter Summary ---
Author Organization [facility] Address [address] [facility] [address] [place] [address] Phone Care Team Providers Care Systems Admin Name Role Phone Gloria Orourke MD Primary Care Provider [phone] Encounter Details Date Type Department Care Team (Late st Contact Info) Description 06/04/2021 Procedure Pass OR Admitting Dept - Virtual Department [address] [place] [address] Social History Tobacco Use Types Packs/Day Years [...] on filedocumented in this encounter Care Teams Systems Admin Relationship Specialty Start Date End Date Gloria Orourke MD [address] [place] [phone] PCP - General Internal Medicine 06/03/21 documented as of this encounter Additional Source Comments The information contained in this document represents components of the legal health record. It is not the complete legal health record.[facility]
--- OUTSIDE RECORDS SUMMARY | 2025-09-01 07:24 | XMS_ITS | Encounter Summary ---
Author Organization [facility] Address [address] [facility] [address] [place] [address] Phone Care Team Providers Care Application Services Manager Name Role Phone Gloria Orourke MD Primary Care Provider [phone] Encounter Details Date Type Department Care Team (Late st Contact Info) Description 06/09/2021 Procedure Pass [place] Admitting Dept - Virtual Department [address] [place] [address] Social History Tobacco Use Types Packs/Day Years [...] on filedocumented in this encounter Care Teams Application Services Manager Relationship Specialty Start Date End Date Gloria Orourke MD [address] [place] [phone] PCP - General Internal Medicine 06/03/21 documented as of this encounter Additional Source Comments The information contained in this document represents components of the legal health record. It is not the complete legal health record.[facility]
--- NOTE | 2025-09-01 07:37 | MHC.OFFVIS ---
Vital Signs 09/01/25 07:42 Height 5 ft 11 in Weight 192 lb BMI 26.8 BP 148/90 H Blood Pressure Location Rt brachial Position Sitting Respiration 16 Pulse 47 L Pulse Source Pulse Oximeter Pulse Oximetry (%) 98 Oxygen Delivery Method Room Air Intake Visit Reasons: Neuropathy Parachute Supervisor Required: No Allergies vibegron (From Gemtesa) Allergy (Intermediate, Verified 08/14/25 10:19) Headache oxycodone Adverse Reaction (Verified 08/14/25 10:19) Confusion HPI Comments Details: Eric is a 75-year-old male patient with a past medical history ascending aortic aneurysm, aortic regurgitation, hypertension, and chronic atrial fibrillation who is here today upon referral for symptoms of neuropathy. According to primary care office notes, the patient underwent an open heart surgery for aortic aneurysm and valve replacement in December. After his surgery, he experienced discomfort in his left leg which worsened upon returning home. He underwent a lower extremity ultrasound which was negative for blood clot. He was placed on gabapentin initially at 100 mg 3 times daily and since then has increased to 300 mg 4 times daily. He however stopped this medication due to excessive sedation. Eric tells me today that on January 05 2025, he had an open heart surgery which was a 9 hour surgery. A couple days after the surgery he started to feel pain to his left leg from about 6 inches above the knee with pain and numbness radiating from the knee down to his toes on the left side. He was started on gabapentin and was titrated up to 300 mg 4 times daily but unfortunately experienced excessive sedation. He stopped the gabapentin cold and then unfortunately had return of his pain. He has since started taking gabapentin again in his currently dosing at 200 mg twice daily. This seems to be comfortable in terms of balancing his symptoms and the sedating side effect. His pain is to the left knee primarily on the inner aspect of the knee worse upon getting out of bed in the morning. Once he takes his gabapentin and moves around he has improvement of his discomfort. He denies any weakness or changes to balance. He denies any falls. He denies having any back pain after surgery or any current back pain. [facility] Medical History (Updated 09/01/25 @ 08:12 by Jeane Bernard CNP) Ascending aortic aneurysm Aortic regurgitation Chronic atrial fibrillation HTN (hypertension) Surgical History (Updated 08/14/25 @ 10:23 by RANDAL Humphries) History of prostate biopsy History of open heart surgery History of hernia surgery History of tonsillectomy Family History (Updated 08/14/25 @ 10:08 by RANDAL Humphries) Father No problems noted. Mother Diabetes Social History (Updated 08/14/25 @ 10:24 by RANDAL Humphries) Housing: House Alcohol intake: never Patient Tobacco Use Status: Former Tobacco user e-Cigarette/Vaping Use: Never Used Second Hand Smoke Exposure: Yes service: No Current occupational status: retired Cognitive needs: No Hearing needs: Yes (Hearing aide) Vision needs: Yes (Glasses) Review of Systems Const All systems reviewed & are unremarkable except as noted in HPI and below Neuro Reports Sensory deficit (Neuro) (Loss of vibratory sensation to the left lower extremity at the great toe) Physical Exam Const General: cooperative, healthy appearing, comfortable and no acute distress Nutritional Appearance: well nourished Orientation/consciousness: patient oriented x3 Limitations: no limitations HEENT Head: Yes normal to inspection and Yes normocephalic Eyes General: appearance normal, both eyes and all related structures Visual Marvin: normal visual marvin by confrontation Alignment and Position: alignment normal Periorbital: periorbital findings normal Eyelids: Yes eyelids normal Conjunctivae: conjunctivae normal Sclerae: sclerae normal Neck Neck: Yes normal visual inspection and Yes full ROM Back/Spine/Pelvis Cervical Spine: normal cervical lordosis Thoracic/Lumbar Spine: thoracic and lumbar spine normal to inspection Neuro General: patient oriented x3 Cranial nerves: Yes CN's II-XII intact bilaterally and Yes Facial sensation intact/muscles of mastication intact Cognition (Neuro): normal cognition Gait exam (Neuro): Normal gait present Motor exam (neuro): 5/5 motor strength present throughout and no tremor noted Sensory Exam: Sensory deficit (Neuro) (Loss of vibratory sensation to the left lower extremity at the great toe) Deep tendon reflexes (DTR's): Right triceps reflex intensity grade: 2+, Left triceps reflex intensity grade: 2+, Rt Biceps (C5, C6): 2+, Left biceps reflex intensity grade: 2+, Right brachioradialis reflex intensity grade: 2+, Left brachioradialis reflex intensity grade: 2+, Right patellar reflex intensity grade: 1+, Left patellar reflex intensity grade: 1+, Right ankle reflex intensity grade: 2+ and Left ankle reflex intensity grade: 0 Plantar Reflex Responses: downgoing: bilateral Romberg Test: Negative Pupils: Normal pupillary reactivity/response: bilateral Psych Appearance: grossly normal Mental Status: mental status grossly normal Speech and movement: Normal speech and movement present and Clear speech present Affect: normal affect Attitude: cooperative Thought process: Normal thought process present Thought content: Normal thought content present Insight: Good insight present (Psych) Judgement: Good judgement present (Psych) Assessment & Plan Assessment & Plan (1) Neuropathy: Code(s): G62.9 - Polyneuropathy, unspecified Category: Medical (2) Left leg pain: Code(s): M79.605 - Pain in left leg Category: Medical Plan Eric is a 75-year-old male patient with a past medical history ascending aortic aneurysm, aortic regurgitation, hypertension, and chronic atrial fibrillation who is here today upon referral for symptoms of neuropathy. His symptoms started a few days after a 9hr open heart surgery. Symptoms are only to the left lower extremity localized primarily around his knee. He does have swelling to the knee and some swelling along the mann and ankle on the left side compared to the right. Sensory loss is predominantly to the left great toe and extends approximately 6 in above the ankle along the mann. He does not have any weakness. He does have loss of ankle jerk reflex in the left side but otherwise reflexes are grossly normal. We will do an EMG study to localize any radiculopathy, mononeuropathy, or polyneuropathy. -LLE EMG -follow up after EMG - Orders: Orders NE nerve conduction velocity Today G62.9 - Polyneuropathy, unspecified, M79.605 - Pain in left leg NE electromyogram (EMG) Today G62.9 - Polyneuropathy, unspecified, M79.605 - Pain in left leg Coding Level of Care Code New Pt Level 4 (72270) Diagnoses Neuropathy G62.9 Left leg pain M79.605
[2025-09-01 07:42] VITALS: BP 148/90; PULSE 47; RESP 16; O2SAT 98; BMI 26.8
== END 2025-09-01 08:17 | disposition home or self-care (01) ==
LOC: HO.HSM 07:22
PROVIDERS: PCP Internal Medicine; Visit Provider Nurse Practitioner
DX: G62.9 Polyneuropathy, unspecified (principal); M79.605 Pain in left leg
CPT/HCPCS: 99204

== ENCOUNTER → 2025-09-01 07:22 | Outpatient (BNVA) | payer MEDICARE, SELFPAY | PROVIDERS: PCP Internal Medicine; Visit Provider Nurse Practitioner | DX: M79.605 Pain in left leg (principal); G62.9 Polyneuropathy, unspecified | CPT/HCPCS: 99202 ==

== ENCOUNTER 2025-09-17 08:47 | Outpatient (REF) | payer MEDICARE, SELFPAY ==
--- NOTE | 2025-09-17 09:44 | EMG_ITS ---
Chief complaint: Numbness, tingling and pain in left leg below knee- symptoms started 1 week after open heart surgery dated 01/05/25 Referred by: Jeane Bernard NP Procedure done:NCS and EMG of left lower extremity Left tibial and peroneal motor studies were performed with F responses and tibial H-reflex. Left superficial peroneal and sural sensory studies were performed an EMG needle examination was performed. Findings: Peroneal amplitude was severely diminished with mild slowing of conduction velocity around the knee and the leg. Similar slowing of conduction velocity was noted with tibial stimulation. Sural amplitude was diminished. Superficial peroneal conduction velocity was mildly slow. H-reflex was absent peroneal F response was absent. Impression: Moderately severe axonal sensory motor peripheral neuropathy [place] [address] [facility]
== END 2025-09-17 08:48 | disposition home or self-care (01) ==
LOC: HO.NEURO 08:47
PROVIDERS: PCP Internal Medicine; Visit Provider Nurse Practitioner
DX: M79.605 Pain in left leg (principal); G62.9 Polyneuropathy, unspecified; R20.0 Anesthesia of skin; R20.2 Paresthesia of skin
CPT/HCPCS: 95886; 95909

== ENCOUNTER → 2025-09-17 09:44 | Outpatient (BNV) | payer MEDICARE, SELFPAY | PROVIDERS: PCP Internal Medicine; Visit Provider Psychiatry & Neurology Neurology | DX: G62.89 Other specified polyneuropathies (principal) | CPT/HCPCS: 95886; 95909 ==

== ENCOUNTER → 2025-09-21 10:51 | Outpatient (REF) | payer MEDICARE, SELFPAY ==
--- OUTSIDE RECORDS SUMMARY | 2022-03-16 17:49 | XMS_ITS | Encounter Summary ---
Author Organization [facility] Address [address] [facility] [address] [place] [address] Phone Care Team Providers Care Degreasing Solution Mixer Name Role Phone Gloria Orourke MD Primary Care Provider [phone] Encounter Details Date Type Department Care Team (Late st Contact Info) Description 03/16/2022 6:49 PM EDT Hospital Encounter [facility] [address] [place] [phone] Ealine Gaming FNP [address] [place] [phone] [email or web address] Social History Tobacco Use Types [...] report originally createdby Jerrell Solomon. Elaine Gaming AREA MANAGER IMG XR UPPER EXTREMITY Yue l Result documented in this encounter Visit Diagnoses Not on filedocumented in this encounter Care Teams Degreasing Solution Mixer Relationship Specialty Start Date End Date Gloria Orourke MD [address] [place] [address] [place] [phone] PCP - General Internal Medicine 06/03/21 documented as of this encounter Additional Source Comments The information contained in this document represents components of the legal health record. It is not the complete legal health record.[facility]
--- OUTSIDE RECORDS SUMMARY | 2023-04-29 08:39 | XMS_ITS | Encounter Summary ---
Author Organization [facility] Address [address] [place] [address] Phone Care Team Providers Care Log Rider Name Role Phone Gloria Orourke MD Primary Care Provider [phone] Encounter Details Date Type Department Care Team (Late st Contact Info) Description 04/29/2023 9:39 AM EDT Hospital Encounter [facility] [address] [place] [address] Amanda Henning, DIPLOMA MEDICAL ASSISTANT [address] [place] [address] [email or web address] Social History Tobacco Use Types Packs/Day Years [...] Name Priority Date/Time Associated Diagnosis Comments XR FOOT 3 OR MORE VIEWS (LEFT) Urgent/patient waiting 04/29/2023 9:50 AM EDT Left foot pain documented in this encounter Results * XR FOOT 3 OR MORE VIEWS (LEFT) (04/29/2023 9:50 AM EDT) Anatomical Region Laterality Modality Foot Left Computed Radiogr aphy 04/29/2023 9:55 AM EDT Impressions 04/29/2023 9:57 AM EDT No fracture or dislocation. Narrative 04/29/2023 9:57 AM EDT XR FOOT 3 OR MORE VIEWS (LEFT) COMPARISON: None FINDINGS: No fracture. Normal alignment. Mild narrowing of the talonavicular joint. Plantar calcaneal spur and Achilles enthesophyte. No soft tissue swelling. Procedure Note Mata Rogel MD, MPH - 04/29/2023 XR FOOT 3 OR MORE VIEWS (LEFT) COMPARISON: None FINDINGS: No fracture. Normal alignment. Mild narrowing of the talonavicular joint.Plantar calcaneal spur and Achilles enthesophyte. No soft tissueswelling. IMPRESSION: No fracture or dislocation. us Amanda B Tierneyll DIPLOMA MEDICAL ASSISTANT IMG XR LOWER EXTREMITY Yue l Result documented in this encounter Visit Diagnoses Not on filedocumented in this encounter Care Teams Log Rider Relationship Specialty Start Date End Date Gloria Orourke MD [address] [place] [address] Drive [address] [place] [address] PCP - General Internal Medicine 06/03/21 documented as of this encounter Additional Source Comments The information contained in this document represents components of the legal health record. It is not the complete legal health record.[facility]
--- OUTSIDE RECORDS SUMMARY | 2024-03-25 07:52 | XMS_ITS | Encounter Summary ---
Author Organization [facility] Address [address] [facility] [address] [place] [address] Phone Care Team Providers Care Academic Vice President Name Role Phone Gloria Orourke MD Primary Care Provider [phone] Encounter Details Date Type Department Care Team (Late st Contact Info) Description 03/25/2024 8:52 AM EDT Hospital Encounter [facility] [address] [place] [address] Maritza Rader CNP [address] [place] [address] Social History Tobacco Use Types Packs/Day Years [...] report originally createdby Artur Mcdonald. Maritza Rader HOURLY SALES STAFF IMG XR UPPER EXTREMITY Yue l Result documented in this encounter Visit Diagnoses Not on filedocumented in this encounter Care Teams Academic Vice President Relationship Specialty Start Date End Date Gloria Orourke MD [address] [place] [address] PCP - General Internal Medicine 06/03/21 documented as of this encounter Additional Source Comments The information contained in this document represents components of the legal health record. It is not the complete legal health record.[facility]
--- OUTSIDE RECORDS SUMMARY | 2025-07-20 07:32 | XMS_ITS | Encounter Summary ---
Author Organization [facility] Address [address] [employer] [facility] [address] [place] [address] Phone Care Team Providers Care Instrument Tech Name Role Phone Gloria Orourke MD Primary Care Provider [phone] Encounter Details Date Type Department Care Team (Late st Contact Info) Description 07/20/2025 8:32 AM EDT Hospital Encounter [facility] [address] [place] [address] Elaine Gaming FNP [address] [place] [phone] [email or web address] Social History Tobacco Use Types Packs/Day [...] clinician's provided indication for this examination in [facility]: Pain; pain for 3 weeks with leg swelling COMPARISON: None FINDINGS: Left Knee: No acute fracture or dislocation. Small knee joint effusion. Procedure Note Aguilar Gandhi MD - 07/20/2025 XR KNEE 4 OR MORE VIEWS (LEFT) Referring clinician's provided indication for this examination in [facility]:Pain; pain for 3 weeks with leg swelling COMPARISON: None FINDINGS: Left Knee: No acute fracture or dislocation. Small knee joint effusion. IMPRESSION: No acute fracture or dislocation. Small knee joint effusion. Elaine Gaming FRONT COUNTER CLERK IMG XR LOWER EXTREMITY Yue l Result documented in this encounter Visit Diagnoses Not on filedocumented in this encounter Care Teams Instrument Tech Relationship Specialty Start Date End Date Gloria Orourke MD [address] [place] [address] Drive [address] [place] [address] PCP - General Internal Medicine 06/03/21 documented as of this encounter Additional Source Comments The information contained in this document represents components of the legal health record. It is not the complete legal health record.[facility]
--- OUTSIDE RECORDS SUMMARY | 2025-09-21 13:38 | XMS_ITS | Clinical Summary ---
Author Organization [facility] Address [address] [facility] [address] [place] [address] Phone Care Team Providers Care Reinspector Name Role Phone Gloria Orourke MD Primary Care Provider Allergies Active Allergy Reactions Criticality Noted Date [...] Description 07/20/2025 8:32 AM EDT Hospital Encounter [facility] [address] [place] [address] [id number] Elaine Gaming FNP 07/20/2025 8:10 AM EDT Office Visit [facility] [address] [address] Elaine Gaming, JUNIOR ESTIMATOR Acute pain of left knee (Primary Dx); [...] this topic Medical Devices Implanted Type Area Bonus Clerk Device Identifier Shelf Expiration Date Model / Serial / Lot Mesh Mesh Mesh Surgical 15cm 8 Hernia Prolene Polypropylene Nonabsorbable Repair Bx/6ea - [id number] Implanted:Qty: 1 on 06/09/2021 by Jomar Grimm MD at [facility] STANDARD Right: Inguinal JNJ ETHICON / DIVISION OF J 07/28/2025 [id number] / / [id number] Procedures Procedure Name [...] clinician's provided indication [facility]: Pain; pain for 3 weeks [...] Small knee joint effusion. us Elaine Gaming JUNIOR ESTIMATOR IMG XR LOWER EXTREMITY Yue l Result * (ABNORMAL) Basic metabolic panel (06/03/2021 10:04 PM EDT) SODIUM 142 133 - 146 mmol/L [facility] CHLORIDE 106 96 - 108 mmol/L [facility] POTASSIUM 3.8 3.3 - 5.1 mmol/L [facility] Comment:Specimen slightly he molyzed, result may be falsely elevated. CO2 25 21 - 35 mmol/L [facility] BUN 24(H) 6 - 19 mg/dL [facility] CREATININE 0.90 0.5 - 1.5 mg/dL [facility] GLUCOSE 115(H) 70 - 99 mg/dL [facility] CALCIUM 10.0 8.4 - 10.3 mg/dL [facility] EGFR 84 >59 mL/min/1.7 3m2 [facility] Comment:Estimated glomerular filtration rate calculated using the CKD-EPI equation. ANION GAP 15 10 - 20 mmol/L [facility] Blood 06/03/2021 10:0 4 PM EDT 06/03/2021 10:18 PM EDT us Buster Be DO LAB BLOOD BKR ORDERABLES Yue l Result [facility] [address] [place] [address] from Last 3 Months or Most Recently Relevant to Health Maintenance Insurance [employer] MEDEX SUPPLEMENT MEDICARE PART A & B [employer] MEDEX SUPPLEMENT MEDICARE PART A & B [employer] MED[employer] SUPPLEMENT MEDICARE PART A & B [employer] MEDEX SUPPLEMENT MEDICARE PART A & B [place] MEDEX SUPPLEMENT MEDICARE PART A & B [employer] MEDEX SUPPLEMENT MEDICARE PART A & B [employer] MEDEX SUPPLEMENT MEDICARE PART A & B [employer] MEDEX SUPPLEMENT MEDICARE PART A & B [employer] MEDEX SUPPLEMENT MEDICARE PART A & B Care Teams Reinspector Relationship Specialty Start Date End Date Sharad, Gloria Gutiérrez MD [address] [place] [address] [place] [phone] PCP - General Internal Medicine 06/03/21 Additional Source Comments The information contained in this document represents components of the legal health record. It is not the complete legal health record.[facility]
--- OUTSIDE RECORDS SUMMARY | 2025-09-21 13:38 | XMS_ITS | Encounter Summary ---
Author Organization [facility] Address [address] [facility] [address] [place] [address] Phone Care Team Providers Care Freight Associate Name Role Phone Gloria Orourke MD Primary Care Provider [phone] Encounter Details Date Type Department Care Team (Late st Contact Info) Description 06/04/2021 Procedure Pass [place] Admitting Dept - Virtual Department [address] [place] [address] Social History Tobacco Use Types Packs/Day Years [...] on filedocumented in this encounter Care Teams Freight Associate Relationship Specialty Start Date End Date Gloria Orourke MD [address] [place] [phone] PCP - General Internal Medicine 06/03/21 documented as of this encounter Additional Source Comments The information contained in this document represents components of the legal health record. It is not the complete legal health record.[facility]
--- OUTSIDE RECORDS SUMMARY | 2025-09-21 13:38 | XMS_ITS | Encounter Summary ---
Author Organization [facility] Address [address] [place] [address] Phone Care Team Providers Care Spot Welder Name Role Phone Gloria Orourke MD Primary Care Provider [phone] Encounter Details Date Type Department Care Team (Late st Contact Info) Description 06/09/2021 Procedure Pass [place] Admitting Dept - Virtual Department [address] [place] [address] Social History Tobacco Use Types Packs/Day Years [...] on filedocumented in this encounter Care Teams Spot Welder Relationship Specialty Start Date End Date Gloria Orourke MD [address] [place] [phone] PCP - General Internal Medicine 06/03/21 documented as of this encounter Additional Source Comments The information contained in this document represents components of the legal health record. It is not the complete legal health record.[facility]
== END ==
LOC: HO.CARD 10:51
PROVIDERS: PCP Internal Medicine; Visit Provider Internal Medicine Cardiovascular Disease
DX: I48.20 Chronic atrial fibrillation, unspecified (principal)
CPT/HCPCS: 93225

== ENCOUNTER → 2025-09-21 10:54 | Outpatient (BNV) | payer MEDICARE, SELFPAY | PROVIDERS: PCP Internal Medicine; Visit Provider Internal Medicine | DX: I48.91 Unspecified atrial fibrillation (principal); I49.3 Ventricular premature depolarization | CPT/HCPCS: 93227 ==

== ENCOUNTER 2025-09-22 07:56 | Outpatient (REF) | payer MEDICARE, SELFPAY ==
--- OUTSIDE RECORDS SUMMARY | 2025-09-22 08:59 | XMS_ITS | Clinical Summary ---
Author Organization [address] [facility] Address [address] [place] [address] Phone Care Team Providers Care Book Binder Name Role Phone Physician, Pcp Unknown Primary Care Provider Savannah vailable Encounters Date Type Department Care Team Description 07/29/[address] [facility] - Main Lab [address] [facility] [address] [place] [address] Jaiden Beaver MD Benign prostatic [...] Depression Screening 10/29/2024 COVID-19 Vaccine (1 - 2024-2 6 season) 2025 Influenza Vaccine (#1) 2025 Cholesterol [...] (07/28/2025) Final Diagnosis A. Prostate, Left Middle Keymar Biopsy: - Benign prostatic tissue. B. Prostate, Left Lateral Keymar Biopsy: - Benign prostatic tissue. C. Prostate, Left Middle Middle Biopsy: - Benign prostatic tissue. D. Prostate, Left Lateral Middle Biopsy: - Benign prostatic tissue. E. Prostate, Left Middle Base Biopsy: - Benign prostatic tissue. F. Prostate, Left Lateral Base Biopsy: - Benign prostatic tissue. G. Prostate, Right Middle Keymar Biopsy: - Benign prostatic tissue. H. Prostate, Right Lateral Keymar Biopsy: - Benign prostatic tissue. I. Prostate, [...] carcinoma is present. 07/31/2025 12:51 PM EDT [facility] at 1250 EDT Clinical Information Elevated PSA N40.1 PSA: 4.9 (05/21/25) [id number] 07/31/2025 12:51 PM EDT [facility] Gross Description A. Prostate, Left Middle Keymar Biopsy: Received, properly labeled, are two H and E stained slides and two unstained slides. B. Prostate, Left Lateral Keymar Biopsy: Received, properly labeled, are two H [...] two unstained slides. G. Prostate, Right Middle Keymar Biopsy: Received, properly labeled, are two H and E stained slides and two unstained slides. H. Prostate, Right Lateral Keymar Biopsy: Received, properly labeled, are two H [...] unstained slides. /al 07/31/2025 12:51 PM EDT [facility] Disclaimer Unless otherwise specified, all tissue is 10% NB formalin fixed and paraffin embedded. Technical pathology services provided by [facility] at [address], [place] [address] (CLIA #[id number]/Sofi Liriano MD, [employer]ender [employer]) 07/31/2025 12:51 PM EDT [facility]) [facility] Tissue Prostate / Unknown 07/28/20252024 12:47 [...] ORDERABLES Final Result [facility] ([facility]) [facility] [address] [place] [address], [place] [phone] from Last 3 Months Insurance MEDICARE [facility] Care Teams Book Binder Relationship Specialty Start Date End Date Physician, Pcp Unknown PCP - General 07/29/25
--- OUTSIDE RECORDS SUMMARY | 2025-09-22 08:59 | XMS_ITS | Encounter Summary ---
Author Organization [facility] Address [address] [place] [address] Care Team Providers Care Roofing Machine Tender Name Role Phone Physician, Pcp Unknown Primary Care Provider Savannah vailable Encounter Details Date Type Department Care Team (Late st Contact Info) Description 07/29/2025 Lab Requisition [facility] - Main Lab [address] [facility] [place] [address] Jaiden Beaver MD [address] [place] [phone] Benign prostatic hyperplasia with lower urinary tract [...] (07/28/2025) Final Diagnosis A. Prostate, Left Middle Barre Biopsy: - Benign prostatic tissue. B. Prostate, Left Lateral Barre Biopsy: - Benign prostatic tissue. C. Prostate, Left Middle Middle Biopsy: - Benign prostatic tissue. D. Prostate, Left Lateral Middle Biopsy: - Benign prostatic tissue. E. Prostate, Left Middle Base Biopsy: - Benign prostatic tissue. F. Prostate, Left Lateral Base Biopsy: - Benign prostatic tissue. G. Prostate, Right Middle Barre Biopsy: - Benign prostatic tissue. H. Prostate, Right Lateral Barre Biopsy: - Benign prostatic tissue. I. Prostate, [...] acinar adenocarcinoma (conventional type), grade group 2 (Igo score 3+4=7). - Percentage pattern 4: 10%. - Tumor continuously involves 56% of 1 of 1 tissue core. M. Prostate, Right PZ Lesion Biopsy: - Prostatic acinar adenocarcinoma (conventional type), grade group 2 (Igo score 3+4=7). - Percentage pattern 4: 40%. - Tumor continuously involves 25% of overall tissue, present in 3 of 3 tissue cores. - Intraductal carcinoma is present. 07/31/2025 12:51 PM EDT [facility] at 1250 EDT Clinical Information Elevated PSA N40.1 PSA: 4.9 (05/21/25) [id number] 07/31/2025 12:51 PM EDT [facility] Gross Description A. Prostate, Left Middle Barre Biopsy: Received, properly labeled, are two H and E stained slides and two unstained slides. B. Prostate, Left Lateral Barre Biopsy: Received, properly labeled, are two H [...] two unstained slides. G. Prostate, Right Middle Barre Biopsy: Received, properly labeled, are two H and E stained slides and two unstained slides. H. Prostate, Right Lateral Barre Biopsy: Received, properly labeled, are two H [...] unstained slides. /al 07/31/2025 12:51 PM EDT [facility] Disclaimer Unless otherwise specified, all tissue is 10% NB formalin fixed and paraffin embedded. Technical pathology services provided by [facility] at [address] [place] [address] [address], [place] [address] (CLIA #[id number]/Sofi Liriano MD, Supervisor Grower) 07/31/2025 12:51 PM EDT [facility] Tissue Prostate / Unknown [...] Beaver MD LAB PATHOLOGY ORDERABLES Final Result [facility] ([facility]) [facility] [address] [place] [address], [place] [phone] documented in this encounter Visit Diagnoses Diagnosis Benign prostatic hyperplasia with lower urinary tract symptoms documented in this encounter Care Teams Roofing Machine Tender Relationship Specialty Start Date End Date Physician, Pcp Unknown PCP - General 07/29/25 documented as of this encounter
[2025-09-22 10:27] LABS: Erythrocyte Sedimentation Rate 6 MM/HR (0-15)
[2025-09-22 10:38] LABS: Folate 18.8 ng/mL (> or = 4.0); Vitamin B12 370 pg/mL (200-900)
[2025-09-23 06:28] LABS: Lyme Abs Screen <0.90 index
[2025-09-25 07:23] LABS: PEU-Protein Creat Ratio Rand 0.452 (0.025-0.148); PEU-Rand. Prot/Creat Ratio 452 mg/g creat (25-148); PEU-Random Ur. Gamma Globulin 4 %; PEU-Random Urine A1 Globulin 4 %; PEU-Random Urine A2 Globulin 7 %; PEU-Random Urine Albumin 74 %; PEU-Random Urine Beta Globulin 11 %; PEU-Random Urine Creatinine 73 mg/dL (20-320); PEU-Random Urine Protein 33 mg/dL (5-25)
[2025-09-26 23:32] LABS: Arsenic, Blood <3 mcg/L (<23); Lead, Blood 1.8 mcg/dL (<3.5); Mercury, Blood <4 mcg/L (<=10)
== END 2025-09-22 07:57 | disposition home or self-care (01) ==
LOC: HO.LAB 07:56
PROVIDERS: PCP Internal Medicine; Visit Provider Nurse Practitioner
DX: M79.605 Pain in left leg (principal); G62.9 Polyneuropathy, unspecified; Z01.84 Encounter for antibody response examination; Z13.1 Encounter for screening for diabetes mellitus; Z79.899 Other long term (current) drug therapy
CPT/HCPCS: 82175; 82525; 82570; 82607; 82746; 82784; 83036; 83655; 83825; 83921; 84156; 84166; 85652; 86334; 86617; 86618; 99212

== ENCOUNTER 2025-09-22 07:56 | Outpatient (AMB) | payer MEDICARE, SELFPAY ==
--- OUTSIDE RECORDS SUMMARY | 2022-03-16 17:49 | XMS_ITS | Encounter Summary ---
Author Organization [facility] Address [address] [facility] [address] [place] [address] Phone Care Team Providers Care Screen Printing Stencil Preparer Name Role Phone Gloria Orourke MD Primary Care Provider [phone] Encounter Details Date Type Department Care Team (Late st Contact Info) Description 03/16/2022 6:49 PM EDT Hospital Encounter [facility] [address] [place] [address] Elaine Gaming FNP [address] [place] [id number] [email or web address] Social History Tobacco Use Types Packs/Day Years Used Date Smoking Tobacco: Former Cigarettes 1 10 Smokeless Tobacco: Never Alcohol Use Standard Drinks/Week Comments Never 0 (1 standard drink = 0.6 oz pur e alcohol) Education Answer Date Recorded Are you interested in more education? Not on shawanda e 02/24/2023 Are you concerned about learning? Not on file 02/24/2023 No 02/24/2023 No 02/24/2023 Digital Access Answer Date Recorded No 03/25/2023 No 03/25/2023 Reliable internet access at home? Not on file 03/25/2023 Device with a working camera? Not on file Sex and Gender Information Value Date Recorded Sex Assigned at Male 06/03/2021 8:57 PM EDT Legal Sex Male 8:34 PM EDT Gender Identity Male 06/03/2021 8:57 PM EDT Sexual Orientation Straight 06/03/2021 8: 57 PM EDT documented as of this encounter Plan of Treatment Not on file documented as of this encounter Procedures Procedure Name Priority Date/Time Associated Diagnosis Comments XR WRIST 3 OR MORE VIEWS (RIGHT) Urgent/patient waiting 03/16/2022 6:53 PM EDT Acute gout of right wrist, unspecified cause documented in this encounter Results * XR WRIST 3 OR MORE VIEWS (RIGHT) (03/16/2022 6:53 PM EDT) Anatomical Region Laterality Modality Wrist Right Computed Radiogr aphy 03/16/2022 6:56 PM EDT Impressions 03/16/2022 7:28 PM EDT . No fracture or dislocation. ATTESTATION: Akhil Salinas as teaching physician, have reviewed the images for this case and if necessary edited the report originally created by Jerrell Solomon. Narrative 03/16/2022 7:28 PM EDT XR WRIST 3 OR MORE VIEWS (RIGHT) COMPARISON: None. FINDINGS: No fracture. Normal alignment. Mild to moderate degenerative changes, greatest at the STT and first CMC joint. No soft tissue swelling. Procedure Note Akhil Centeno DO - 03/16/2022 XR WRIST 3 OR MORE VIEWS (RIGHT) COMPARISON: None. FINDINGS: No fracture. Normal alignment. Mild to moderate degenerative changes,greatest at the STT and first CMC joint. No soft tissue swelling. IMPRESSION: . No fracture or dislocation. ATTESTATION: Akhil Salinas as teaching physician, have reviewed theimages for this case and if necessary edited the report originally createdby Jerrell Solomon. Elaine Gaming COMMERCIAL LENDING RELATIONSHIP MANAGER IMG XR UPPER EXTREMITY Yue l Result documented in this encounter Visit Diagnoses Not on filedocumented in this encounter Care Teams Screen Printing Stencil Preparer Relationship Specialty Start Date End Date Gloria Orourke MD [address] [place] [address] [place] [phone] PCP - General Internal Medicine 06/03/21 documented as of this encounter Additional Source Comments The information contained in this document represents components of the legal health record. It is not the complete legal health record.[facility]
--- OUTSIDE RECORDS SUMMARY | 2023-04-29 08:39 | XMS_ITS | Encounter Summary ---
Author Organization [facility] Address [address] [place] [address] Phone Care Team Providers Care Packaging Materials Inspector Name Role Phone Gloria Orourke MD Primary Care Provider [phone] Encounter Details Date Type Department Care Team (Late st Contact Info) Description 04/29/2023 9:39 AM EDT Hospital Encounter [facility] [address] [place] [address] Amanda Henning, PROGRAM FACILITATOR [address] [place] [address] [email or web address] Social History Tobacco Use Types Packs/Day Years [...] fracture or dislocation. us Amanda B Tierneyll PROGRAM FACILITATOR IMG XR LOWER EXTREMITY Yue l Result documented in this encounter Visit Diagnoses Not on filedocumented in this encounter Care Teams Packaging Materials Inspector Relationship Specialty Start Date End Date Gloria Orourke MD [address] [place] [address] Drive [address] [place] [address] PCP - General Internal Medicine 06/03/21 documented as of this encounter Additional Source Comments The information contained in this document represents components of the legal health record. It is not the complete legal health record.[facility]
--- OUTSIDE RECORDS SUMMARY | 2024-03-25 07:52 | XMS_ITS | Encounter Summary ---
Author Organization [facility] Address [address] [facility] [address] [place] [address] Phone Care Team Providers Care School Child Care Attendant Name Role Phone Gloria Orourke MD Primary Care Provider [phone] Encounter Details Date Type Department Care Team (Late st Contact Info) Description 03/25/2024 8:52 AM EDT Hospital Encounter [facility] [address] [place] [address] Maritza Rader CNP [address] [place] [address] [email or web address] Social History Tobacco Use Types Packs/Day Years [...] Name Priority Date/Time Associated Diagnosis Comments XR SHOULDER 2 VIEWS (LEFT) Routine 03/25/2024 8:58 AM EDT Acute pain of left shoulder documented in this encounter Results * XR SHOULDER 2 VIEWS (LEFT) (03/25/2024 8:58 AM EDT) Anatomical Region Laterality Modality Shoulder Left Computed Radiogr aphy 03/25/2024 9:09 AM EDT Impressions 03/25/2024 9:15 AM EDT Osseous demineralization. No displaced fracture. Normal glenohumeral alignment. Mild glenohumeral and acromioclavicular degenerative changes. No focal consolidation in the partially visualized left lung. Aortic calcifications. ATTESTATION: Daniel [place] as teaching physician, have reviewed the images for this case and if necessary edited the report originally created by Artur Mcdonald. Narrative 03/25/2024 9:15 AM EDT XR SHOULDER 2 OR MORE VIEWS (LEFT) Referring clinician's provided indication for this examination in Epic: Pain; no ROM, unable abduct COMPARISON: None Procedure Note Daniel Horn MD - 03/25/2024 XR SHOULDER 2 OR MORE VIEWS (LEFT) Referring clinician's provided indication for this examination in Epic:Pain; no ROM, unable abduct COMPARISON: None IMPRESSION: Osseous demineralization. No displaced fracture. Normal glenohumeralalignment. Mild glenohumeral and acromioclavicular degenerative changes.No focal consolidation in the partially visualized left lung. Aorticcalcifications. ATTESTATION: Daniel [place] as teaching physician, have reviewed theimages for this case and if necessary edited the report originally createdby Artur Mcdonald. Maritza Rader ORACLE FUSION MIDDLEWARE DEVELOPER IMG XR UPPER EXTREMITY Yue l Result documented in this encounter Visit Diagnoses Not on filedocumented in this encounter Care Teams School Child Care Attendant Relationship Specialty Start Date End Date Gloria Orourke MD [address] [facility] [address] [place] [address] PCP - General Internal Medicine 06/03/21 documented as of this encounter Additional Source Comments The information contained in this document represents components of the legal health record. It is not the complete legal health record.[facility]
--- OUTSIDE RECORDS SUMMARY | 2025-07-20 07:32 | XMS_ITS | Encounter Summary ---
Author Organization [facility] Address [address] [employer] [facility] [address] [place] [address] Phone Care Team Providers Care Artificial Glass Eye Maker Name Role Phone Gloria Orourke MD Primary Care Provider [phone] Encounter Details Date Type Department Care Team (Late st Contact Info) Description 07/20/2025 8:32 AM EDT Hospital Encounter [facility] [address] [place] [address] Elaine Gaming FNP [address] [place] [id number] [email or web address] Social History Tobacco Use Types Packs/Day [...] clinician's provided indication for this examination in [facility]: Pain; pain for 3 weeks with leg swelling COMPARISON: None FINDINGS: Left Knee: No acute fracture or dislocation. Small knee joint effusion. Procedure Note Aguilar Gandhi MD - 07/20/2025 XR KNEE 4 OR MORE VIEWS (LEFT) Referring clinician's provided indication for this examination in [facility]:Pain; pain for 3 weeks with leg swelling COMPARISON: None FINDINGS: Left Knee: No acute fracture or dislocation. Small knee joint effusion. IMPRESSION: No acute fracture or dislocation. Small knee joint effusion. Elaine Gaming TAR POT WORKER IMG XR LOWER EXTREMITY Yue l Result documented in this encounter Visit Diagnoses Not on filedocumented in this encounter Care Teams Artificial Glass Eye Maker Relationship Specialty Start Date End Date Gloria Orourke MD [address] [place] [address] Drive [address] [place] [address] PCP - General Internal Medicine 06/03/21 documented as of this encounter Additional Source Comments The information contained in this document represents components of the legal health record. It is not the complete legal health record.[facility]
--- OUTSIDE RECORDS SUMMARY | 2025-09-22 08:06 | XMS_ITS | Encounter Summary ---
Author Organization [facility] Address [address] [facility] [address] [place] [address] Phone Care Team Providers Care Rip Sawyer Name Role Phone Gloria Orourke MD Primary Care Provider [phone] Encounter Details Date Type Department Care Team (Late st Contact Info) Description 06/04/2021 Procedure Pass [place] Admitting Dept - Virtual Department [address] [place] [address] Social History Tobacco Use Types Packs/Day Years [...] on filedocumented in this encounter Care Teams Rip Sawyer Relationship Specialty Start Date End Date Gloria Orourke MD [address] [place] [phone] PCP - General Internal Medicine 06/03/21 documented as of this encounter Additional Source Comments The information contained in this document represents components of the legal health record. It is not the complete legal health record.[facility]
--- OUTSIDE RECORDS SUMMARY | 2025-09-22 08:06 | XMS_ITS | Encounter Summary ---
Author Organization [facility] Address [address] [facility] [address] [place] [address] Phone Care Team Providers Care Towel Inspector Name Role Phone Gloria Orourke MD Primary Care Provider [phone] Encounter Details Date Type Department Care Team (Late st Contact Info) Description 06/09/2021 Procedure Pass [place] Admitting Dept - Virtual Department [address] [place] [address] Social History Tobacco Use Types Packs/Day Years [...] on filedocumented in this encounter Care Teams Towel Inspector Relationship Specialty Start Date End Date Gloria Orourke MD [address] [place] [phone] PCP - General Internal Medicine 06/03/21 documented as of this encounter Additional Source Comments The information contained in this document represents components of the legal health record. It is not the complete legal health record.[facility]
--- OUTSIDE RECORDS SUMMARY | 2025-09-22 08:06 | XMS_ITS | Clinical Summary ---
Author Organization [facility] Address [address] [facility] [address] [place] [address] Phone Care Team Providers Care Hot Dimpling Machine Operator Name Role Phone Gloria Orourke MD Primary Care Provider [phone] Allergies Active Allergy Reactions Criticality Noted Date [...] Encounter [facility] [address] [place] [address] [phone] Elaine Gaming FNP 07/20/2025 8:10 AM EDT Office Visit [facility] at [address] [address] Elaine Gaming, SOFTWARE RECRUITER Acute pain of left knee (Primary Dx); [...] this topic Medical Devices Implanted Type Area Numerical Tool Programmer Device Identifier Shelf Expiration Date Model / Serial / Lot Mesh Mesh Mesh Surgical 15cm 8 Hernia Prolene Polypropylene Nonabsorbable Repair Bx/6ea - [id number] Implanted:Qty: 1 on 06/09/2021 by Jomar Grimm MD at [facility] STANDARD Right: Inguinal JNJ ETHICON / DIVISION OF J 07/28/2025 [id number] / / [id number] Procedures Procedure Name [...] clinician's provided indication for this examination in [facility]: Pain; pain for 3 [...] Small knee joint effusion. us Elaine Gaming SOFTWARE RECRUITER IMG XR LOWER EXTREMITY Yue l Result * (ABNORMAL) Basic metabolic panel (06/03/2021 10:04 PM EDT) SODIUM 142 133 - 146 mmol/L [facility] CHLORIDE 106 96 - 108 mmol/L [facility] POTASSIUM 3.8 3.3 - 5.1 mmol/L [facility] Comment:Specimen slightly he molyzed, result may be falsely elevated. CO2 25 21 - 35 mmol/L [facility] BUN 24(H) 6 - 19 mg/dL [facility] CREATININE 0.90 0.5 - 1.5 mg/dL [facility] GLUCOSE 115(H) 70 - 99 mg/dL [facility] CALCIUM 10.0 8.4 - 10.3 mg/dL [facility] EGFR 84 >59 mL/min/1.7 3m2 [facility] Comment:Estimated glomerular filtration rate calculated using the CKD-EPI equation. ANION GAP 15 10 - 20 mmol/L [facility] Blood 06/03/2021 10:0 4 PM EDT 06/03/2021 10:18 PM EDT us Buster Be DO LAB BLOOD BKR ORDERABLES Yue l Result [facility] [address] [place] [address] from Last 3 Months or Most Recently Relevant to Health Maintenance Insurance [employer] MEDEX SUPPLEMENT MEDICARE PART A & B [employer] MED[employer] SUPPLEMENT MEDICARE PART A & B [employer] MED[employer] SUPPLEMENT MEDICARE PART A & B [employer] MEDEX SUPPLEMENT MEDICARE PART A & B [employer] MEDEX SUPPLEMENT MEDICARE PART A & B [employer] MEDEX SUPPLEMENT MEDICARE PART A & B [employer] MEDEX SUPPLEMENT Member Subscriber Plan / Payer ( fective 2013-Present) Name:SravaniEric brooks Relation to Subscriber:Self Name:Eric Ferreira Payer ID:[id number] (NAIC) Type:DeviceAuthor[employer]ni[employer] Address: [facility] [id number] [place] [address] MEDICARE PART A & B [employer] MEDEX SUPPLEMENT MEDICARE PART A & B [employer] MEDEX SUPPLEMENT MEDICARE PART A & B Care Teams Hot Dimpling Machine Operator Relationship Specialty Start Date End Date Sharad, Gloria Gutiérrez MD [address] [place] [address] [place] [address] [phone] PCP - General Internal Medicine 06/03/21 Additional Source Comments The information contained in this document represents components of the legal health record. It is not the complete legal health record.[facility]
[2025-09-22 08:07] VITALS: BP 149/110; PULSE 67; RESP 16; O2SAT 99; BMI 26.9
--- NOTE | 2025-09-22 08:07 | MHC.OFFVIS ---
Vital Signs 09/22/25 08:07 Height 5 ft 11 in Weight 193 lb BMI 26.9 BP 149/110 H Blood Pressure Location Lt brachial Position Sitting Respiration 16 Pulse 67 Pulse Source Pulse Oximeter Pulse Oximetry (%) 99 Oxygen Delivery Method Room Air Intake Visit Reasons: Results Nursing Home Director Required: No Allergies vibegron (From Gemtesa) Allergy (Intermediate, Verified 09/22/25 08:08) Headache oxycodone Adverse Reaction (Verified 09/22/25 08:08) Confusion HPI Comments Details: Eric is a 75-year-old male patient with a past medical history ascending aortic aneurysm, aortic regurgitation, hypertension, and chronic atrial fibrillation who is here today for a follow-up visit. A He underwent an open heart surgery for aortic aneurysm and valve replacement in December. After his surgery, he experienced discomfort in his left leg which worsened upon returning home. He underwent a lower extremity ultrasound which was negative for blood clot. He was placed on gabapentin initially at 100 mg 3 times daily and since then has increased to 300 mg 4 times daily. He however stopped this medication due to excessive sedation. He since started taking gabapentin again at 200 mg twice daily. This seems to be comfortable in terms of balancing his symptoms and the sedating side effect. His pain is to the left knee primarily on the inner aspect of the knee worse upon getting out of bed in the morning. Once he takes his gabapentin and moves around he has improvement of his discomfort. He denies any weakness or changes to balance. He denies any falls. He denies having any back pain after surgery or any current back pain. 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 He has had some lab workup so far including a TSH which was normal and an SPEP which did show a faint restricted band (M spike) and immunofixation was recommended. He tells me today in follow up that he has not had any changes to his symptoms. He continues to have pain to his left lower extremity predominantly to the inner aspect of his knee especially when getting out of bed in the morning though once he takes his gabapentin and moves around he has near resolution of the discomfort. [facility] Medical History Ascending aortic aneurysm Aortic regurgitation Chronic atrial fibrillation HTN (hypertension) Surgical History History of prostate biopsy History of open heart surgery History of hernia surgery History of tonsillectomy Family History (Updated 08/14/25 @ 10:08 by RANDAL Humphries) Father No problems noted. Mother Diabetes Social History Housing: House Alcohol intake: never Patient Tobacco Use Status: Former Tobacco user e-Cigarette/Vaping Use: Never Used Second Hand Smoke Exposure: Yes service: No Current occupational status: retired Cognitive needs: No Hearing needs: Yes (Hearing aide) Vision needs: Yes (Glasses) Review of Systems Const All systems reviewed & are unremarkable except as noted in HPI and below Neuro Reports Sensory deficit (Neuro) (Loss of vibratory sensation to the left lower extremity at the great toe) Physical Exam Vital Signs: Last Vital Signs Pulse 67 09/22/25 08:07 Resp 16 09/22/25 08:07 BP 149/110 H 09/22/25 08:07 Pulse Ox 99 09/22/25 08:07 Oxygen Delivery Method Room Air 09/22/25 08:07 BMI result Body Mass Index 26.9 Const General: cooperative, healthy appearing, comfortable and no acute distress Nutritional Appearance: well nourished Orientation/consciousness: patient oriented x3 Limitations: no limitations HEENT Head: Yes normal to inspection and Yes normocephalic Eyes General: appearance normal, both eyes and all related structures Visual Marvin: normal visual marvin by confrontation Alignment and Position: alignment normal Periorbital: periorbital findings normal Eyelids: Yes eyelids normal Conjunctivae: conjunctivae normal Sclerae: sclerae normal Neck Neck: Yes normal visual inspection and Yes full ROM Back/Spine/Pelvis Cervical Spine: normal cervical lordosis Thoracic/Lumbar Spine: thoracic and lumbar spine normal to inspection Neuro General: patient oriented x3 Cranial nerves: Yes CN's II-XII intact bilaterally and Yes Facial sensation intact/muscles of mastication intact Cognition (Neuro): normal cognition Gait exam (Neuro): Normal gait present Motor exam (neuro): 5/5 motor strength present throughout and no tremor noted Sensory Exam: Sensory deficit (Neuro) (Loss of vibratory sensation to the left lower extremity at the great toe) Deep tendon reflexes (DTR's): Right triceps reflex intensity grade: 2+, Left triceps reflex intensity grade: 2+, Rt Biceps (C5, C6): 2+, Left biceps reflex intensity grade: 2+, Right brachioradialis reflex intensity grade: 2+, Left brachioradialis reflex intensity grade: 2+, Right patellar reflex intensity grade: 1+, Left patellar reflex intensity grade: 1+, Right ankle reflex intensity grade: 2+ and Left ankle reflex intensity grade: 0 Plantar Reflex Responses: downgoing: bilateral Romberg Test: Negative Pupils: Normal pupillary reactivity/response: bilateral Psych Appearance: grossly normal Mental Status: mental status grossly normal Speech and movement: Normal speech and movement present and Clear speech present Affect: normal affect Attitude: cooperative Thought process: Normal thought process present Thought content: Normal thought content present Insight: Good insight present (Psych) Judgement: Good judgement present (Psych) Assessment & Plan Assessment & Plan (1) Neuropathy: Code(s): G62.9 - Polyneuropathy, unspecified Category: Medical (2) Left leg pain: Code(s): M79.605 - Pain in left leg Category: Medical Plan Eric is a 75-year-old male patient with a past medical history ascending aortic aneurysm, aortic regurgitation, hypertension, and chronic atrial fibrillation who is here today for a follow-up visit. His EMG study is significant for moderately severe axonal sensory-motor peripheral neuropathy. He does not have any prior history of heavy alcohol use, chemotherapy, heavy metal, or chemical exposures. His lab workup does reveal a mild abnormality in his SPEP and we will follow up with an immunofixation. I will also order other common labs used to screen for causes of polyneuropathy. It is unclear whether or not his symptoms are related to the finding on the EMG study as his pain is predominantly localized to the inner aspect of the knee to his left lower extremity. He would like to see Dr. Anaya at least x 1. I will arrange to have him follow up with Dr. Anaya at next visit but I am happy to continue following him in the future. -labs: UPEP, immunofixation, Lyme, copper, B12, A1c, heavy metal screen, folate, ESR, MMA -continue Gabapentin 200 mg twice daily -follow up with the attending - Orders: Orders Protein Electrophoresis,Ran Ur Today G62.9 - Polyneuropathy, unspecified Immunofixation Pnl, Serum Today G62.9 - Polyneuropathy, unspecified Lyme IgG/IgM w/reflex to WB Today G62.9 - Polyneuropathy, unspecified Copper, serum Today G62.9 - Polyneuropathy, unspecified Vitamin B12 Today G62.9 - Polyneuropathy, unspecified Hemoglobin A1c Today G62.9 - Polyneuropathy, unspecified Heavy Metals Screen Blood Today G62.9 - Polyneuropathy, unspecified Folate Today G62.9 - Polyneuropathy, unspecified Erythrocyte Sedimentation Rate Today G62.9 - Polyneuropathy, unspecified Methylmalonic Acid Today G62.9 - Polyneuropathy, unspecified Coding Level of Care Code Est Pt Level 4 (16338) Diagnoses Neuropathy G62.9 Left leg pain M79.605
== END 2025-09-22 08:31 | disposition home or self-care (01) ==
LOC: HO.HSM 07:56
PROVIDERS: PCP Internal Medicine; Visit Provider Nurse Practitioner
DX: G62.9 Polyneuropathy, unspecified (principal); M79.605 Pain in left leg
CPT/HCPCS: 99214

== ENCOUNTER 2025-10-19 08:04 | Outpatient (REF) | payer MEDICARE, SELFPAY ==
--- NOTE | ~2025-10-19 | XR_ITS ---
EXAMINATION: X-ray bilateral knees CLINICAL INFORMATION: Arthritis COMPARISON: None TECHNIQUE: AP bilateral knees one view. Left knee 1 view. Right knee 1 view. FINDINGS: Right knee: No significant joint space narrowing. Alignment is anatomic. No visible acute fracture or dislocation. Small suprapatellar joint fluid. Superior calcaneus insertional enthesopathy. Left knee: Anatomic alignment. No significant joint space loss. No visible acute fracture or dislocation. Small suprapatellar joint fluid. Superior patellar insertional enthesopathy. XR/XR Knee Juni 1or 2V IMPRESSION: No acute osseous findings. Small suprapatellar joint fluid in bilateral knees. Electronically signed by: Sathya Bradley MD 10/19/2025 01:18 PM [facility]
== END 2025-10-19 08:05 | disposition home or self-care (01) ==
LOC: HO.XRAY 08:04
PROVIDERS: PCP Internal Medicine; Visit Provider Psychiatry & Neurology Neurology
DX: M17.0 Bilateral primary osteoarthritis of knee (principal); G60.9 Hereditary and idiopathic neuropathy, unspecified; M79.605 Pain in left leg
CPT/HCPCS: 73560; 99212

== ENCOUNTER 2025-10-19 08:04 | Outpatient (AMB) | payer MEDICARE, SELFPAY ==
--- OUTSIDE RECORDS SUMMARY | 2022-03-16 17:49 | XMS_ITS | Encounter Summary ---
Author Organization [facility] Address [address] [facility] [address] [place] [address] Phone Care Team Providers Care Manager Research And Development Name Role Phone Gloria Orourke MD Primary Care Provider [phone] Encounter Details Date Type Department Care Team (Late st Contact Info) Description 03/16/2022 6:49 PM EDT Hospital Encounter [facility] [address] [place] [address] Elaine Gaming FNP [address] [place] [phone] [email or web address] Social History Tobacco Use Types Packs/Day Years [...] report originally createdby Jerrell Solomon. Elaine Gaming LOG HANDLER IMG XR UPPER EXTREMITY Yue l Result documented in this encounter Visit Diagnoses Not on filedocumented in this encounter Care Teams Manager Research And Development Relationship Specialty Start Date End Date Gloria Orourke MD [address] [place] [address] [place] [phone] PCP - General Internal Medicine 06/03/21 documented as of this encounter Additional Source Comments The information contained in this document represents components of the legal health record. It is not the complete legal health record.[facility]
--- OUTSIDE RECORDS SUMMARY | 2023-04-29 08:39 | XMS_ITS | Encounter Summary ---
Author Organization [facility] Address [email or web address] [place] [address] Phone Care Team Providers Care Irrigation Technician Name Role Phone Gloria Orourke MD Primary Care Provider [phone] Encounter Details Date Type Department Care Team (Late st Contact Info) Description 04/29/2023 9:39 AM EDT Hospital Encounter [facility] [address] [place] [address] Amanda Henning, DENTAL PROSTHETIST [address] [place] [address] [email or web address] Social History Tobacco Use Types Packs/Day Years [...] fracture or dislocation. us Amanda B Tierneyll DENTAL PROSTHETIST IMG XR LOWER EXTREMITY Yue l Result documented in this encounter Visit Diagnoses Not on filedocumented in this encounter Care Teams Irrigation Technician Relationship Specialty Start Date End Date Gloria Orourke MD [address] [place] [address] Drive [address] [place] [address] PCP - General Internal Medicine 06/03/21 documented as of this encounter Additional Source Comments The information contained in this document represents components of the legal health record. It is not the complete legal health record.[facility]
--- OUTSIDE RECORDS SUMMARY | 2024-03-25 07:52 | XMS_ITS | Encounter Summary ---
Author Organization [facility] Address [address] [facility] [address] [place] [address] Phone Care Team Providers Care Equipment Maintenance Tech Name Role Phone Gloria Orourke MD Primary Care Provider Encounter Details Date Type Department Care Team (Late st Contact Info) Description 03/25/2024 8:52 AM EDT Hospital Encounter [facility] [address] [place] [address] Maritza Rader CNP [address] [place] [address] Social History Tobacco Use Types Packs/Day Years [...] report originally createdby Artur Mcdonald. Maritza Rader CHILLER TECHNICIAN IMG XR UPPER EXTREMITY Yue l Result documented in this encounter Visit Diagnoses Not on filedocumented in this encounter Care Teams Equipment Maintenance Tech Relationship Specialty Start Date End Date Gloria Orourke MD [address] [place] [address] PCP - General Internal Medicine 06/03/21 documented as of this encounter Additional Source Comments The information contained in this document represents components of the legal health record. It is not the complete legal health record.[facility]
--- OUTSIDE RECORDS SUMMARY | 2025-07-20 07:32 | XMS_ITS | Encounter Summary ---
Author Organization [facility] Address [address] [facility] ([place], [place]) [address] [place] [address] Phone Care Team Providers Care Argon Tester Name Role Phone Gloria Orourke MD Primary Care Provider [phone] Encounter Details Date Type Department Care Team (Late st Contact Info) Description 07/20/2025 8:32 AM EDT Hospital Encounter [facility] [address] [place] [id number] Elaine Gaming FNP [address] [place] [id number] [email or web address] Social History Tobacco Use Types Packs/Day Years [...] Name Priority Date/Time Associated Diagnosis Comments XR KNEE 4 OR MORE VIEWS (LEFT) Urgent/patient waiting 07/20/2025 8:38 AM EDT Acute pain of left knee documented in this encounter Results * XR KNEE 4 OR MORE VIEWS (LEFT) (07/20/2025 8:38 AM EDT) Anatomical Region Laterality Modality Knee Left Computed Radiogr aphy 07/20/2025 9:08 AM EDT Impressions 07/20/2025 9:08 AM EDT No acute fracture or dislocation. Small knee joint effusion. Narrative 07/20/2025 9:08 AM EDT XR KNEE 4 OR MORE VIEWS (LEFT) Referring clinician's provided indication for this examination in [facility]: Pain; pain for 3 weeks with leg swelling COMPARISON: None FINDINGS: Left Knee: No acute fracture or dislocation. Small knee joint effusion. Procedure Note Aguilar Gandhi MD - 07/20/2025 XR KNEE 4 OR MORE VIEWS (LEFT) Referring clinician's provided indication for this examination in [facility]:Pain; pain for 3 weeks with leg swelling COMPARISON: None FINDINGS: Left Knee: No acute fracture or dislocation. Small knee joint effusion. IMPRESSION: No acute fracture or dislocation. Small knee joint effusion. Elaine Gaming FACILITY SERVICE MANAGER IMG XR LOWER EXTREMITY Yue l Result documented in this encounter Visit Diagnoses Not on filedocumented in this encounter Care Teams Argon Tester Relationship Specialty Start Date End Date Gloria Orourke MD [address] [place] [address] Drive [address] [place] [address] PCP - General Internal Medicine 06/03/21 documented as of this encounter Additional Source Comments The information contained in this document represents components of the legal health record. It is not the complete legal health record.[facility]
--- OUTSIDE RECORDS SUMMARY | 2025-10-13 10:00 | XMS_ITS ---
Author Organization [facility] Address [address] [place] [address] Care Team Providers Care Picker Machine Operator Name Role Phone RUPINDER CANTU, [facility] Primary Care Provider Jim Fox [phone] Allergies No Known Allergies REASON FOR VISIT Patient presents today for discuss colonoscopy Medications Medication SIG (Take, Route, Frequency, Duration) Notes Start Date End Date Status Digoxin 125 MCG Tablet 1 tablet Orally; Duration: 30 day(s) 10/13/2025 Active Metoprolol Tartrate 25 MG Tablet 1 tablet in the am and 2 in the pm Orally Twice a day Active Gabapentin 100 MG Capsule Oral; Duration: 31 Days Active Finasteride 5 MG Tablet TAKE 1 TABLET BY MOUTH EVERYDAY AT BEDTIME Oral; Duration: 90 Days Active Atorvastatin Calcium 40 MG Tablet TAKE 1 TABLET BY MOUTH EVERY DAY AT BEDTIME Oral; Duration: 30 Days Active Vitamin B Complex 10/13/2025 A ctive Aspir-81 81 MG Tablet Delayed Release 1 tablet Orally Once a day Not-Taking/PRN Colyte w Flavor Packs 240 GM Solution Reconstituted as directed Orally as directed; Duration: 1 day(s) 03/11/2015 Not-Taking/[place] N Lisinopril 20 MG Tablet 1 tablet Orally Once a day Active Xarelto 20 MG Tablet 1 tablet with food Orally Once a day Active Social History Social History Drugs/Alcohol: Social Info Question Answer Notes Alcohol Screen Did you have a drink containing alcohol in the past year? No Points 0 Interpretation Negative Drug/Alcohol: Social Info Question Answer Notes AUDIT-C (Standard) Did you have a drink containing alcohol in the past year? 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[employer] Section Notes: Nonsmoker; no alcohol Problems Problem Type SNOMED Code ICD Code Onset Dates Problem Status W/U Status Risk Notes Problem Long-term current use of anticoagulant (536366262) rodent exterminator (current) use of anticoagulants (Z79.01) Active confirmed Problem Colon cancer screening (482572260) Colon cancer screening (Z12.11) Active confirmed Problem Preprocedural examination (663006342766783) Preprocedural examination (Z01.818) Active confirmed Vital Signs Blood pressure systolic 001 mm Hg 10/13/20 25 Blood pressure diastolic 01 mm Hg 025 Height 70 in 10/13/2025 Weight 207.8 lbs 10/13/2025 BMI 29.81 kg/m2 10/13/2025 Encounters Encounter Location Date Provider Diagnosis [facility] [address] [place] [address] 10/13/2025 Jim Montague Colon cancer screeni ng Z12.11 ; rodent exterminator (current) use of anticoagulants Z79.01 and Preprocedural examination Z01.818 Assessments Encounter Date Diagnosis (ICD Code) Assessment Notes Treatment Notes Treatment Clinical Notes Section Notes 10/13/2025 Colon cancer screening (ICD-10 - Z12.11) You need to be off the Xarelto for 2 full days before the colonoscopy Overall, Keya appears well and is not having any new or worrisome GI complaints. Given his age, good clinical appearance, and his negative colonoscopy over 10 years ago, I did recommend a follow-up colonoscopy for further screening purposes. The procedure will be squeezed in for him by early October such that it can be done prior to the initiation of his radiation treatments for the prostate cancer. We did review the rationale for the procedure in regard to colorectal cancer prevention. Full consent has been obtained for this, including risks of bleeding and perforation. The procedure will be done with monitored anesthesia care. He was given the below instructions regarding adjustment of his Xarelto for the procedure. Keya was comfortable with this plan. Thank you again for allowing me to participate in Keya's care. I shall continue to keep you advised of his progress. 10/13/2025 rodent exterminator (current) use of anticoagulants (ICD-10 - Z79.01) Overall, Pat appears well and is not having any new or worrisome GI complaints. Given his age, good clinical appearance, and his negative colonoscopy over 10 years ago, I did recommend a follow-up colonoscopy for further screening purposes. The procedure will be squeezed in for him by early October such that it can be done prior to the initiation of his radiation treatments for the prostate cancer. We did review the rationale for the procedure in regard to colorectal cancer prevention. Full consent has been obtained for this, including risks of bleeding and perforation. The procedure will be done with monitored anesthesia care. He was given the below instructions regarding adjustment of his Xarelto for the procedure. Pat was comfortable with this plan. Thank you again for allowing me to participate in Keya's care. I shall continue to keep you advised of his progress. 10/13/2025 Preprocedural examination (ICD-10 - Z01.818) Overall, Keya appears well and is not having any new or worrisome GI complaints. Given his age, good clinical appearance, and his negative colonoscopy over 10 years ago, I did recommend a follow-up colonoscopy for further screening purposes. The procedure will be squeezed in for him by early October such that it can be done prior to the initiation of his radiation treatments for the prostate cancer. We did review the rationale for the procedure in regard to colorectal cancer prevention. Full consent has been obtained for this, including risks of bleeding and perforation. The procedure will be done with monitored anesthesia care. He was given the below instructions regarding adjustment of his Xarelto for the procedure. Pat was comfortable with this plan. Thank you again for allowing me to participate in Keya's care. I shall continue to keep you advised of his progress. Plan Of Treatment Treatment Notes Assessment Notes Colon cancer screening You need to be of f the Xarelto for 2 full days before the colonoscopy Future Test Test Name Order Date COLONOSCOPY 10/13/2025 Next Appt Details Provider Name:Jim Bal Montague , 10/30/2025 11:10:00 AM, [address] [place] [address] , [place], [place], [id number], History and Physical Notes * HPI (History of Present Illness) Category Sub-Category Detail Notes Category Not es incontinence I saw Keya in the office today for evaluation of colorectal cancer screening. I last saw Keya in 2014, at which time he underwent a negative screening colonoscopy. He also had a negative exam in 2004. He presently feels well. However, he describes that he was diagnosed earlier this fall with prostate cancer. He did receive some hormone treatments already at his scheduled to begin radiation treatments for sometime in October. He advises me that the radiation oncologist advised him that he should undergo a screening colonoscopy prior to the onset of his radiation treatments. Keya describes a regular bowel pattern without any signs of bleeding. He enjoys a good appetite and denies any significant heartburn or dysphagia. He denies abdominal pain, jaundice, nor unintentional weight loss. He denies any known family history of colorectal cancer. Progress Notes * LUZ ANDRESDOB: [birth year] (75 yo M)Acc No.[id number]:10/13/2025 Progress Notes Patient: LUZ VIEYRA Provider: Jsohua Montague MD :1950 A ge:75 Y S ex:Male Date:10/13/2025 Address: [address] [place], [facility] Pcp:ZEINAB BUCIO MD Subjective: * Chief Complaints: * P atelena presents today for discuss colonoscopy * HPI: i ncontinence: I saw Keya in the office today for evaluation of colorectal cancer screening. I last saw Keya in 2014, at which time he underwent a negative screening colonoscopy. He also had a negative exam in 2004. He presently feels well. However, he describes that he was diagnosed earlier this fall with prostate cancer. He did receive some hormone treatments already at his scheduled to begin radiation treatments for sometime in October. He advises me that the radiation oncologist advised him that he should undergo a screening colonoscopy prior to the onset of his radiation treatments. Keya describes a regular bowel pattern without any signs of bleeding. He enjoys a good appetite and denies any significant heartburn or dysphagia. He denies abdominal pain, jaundice, nor unintentional weight loss. He denies any known family history of colorectal cancer. * Medical History: Screening colonoscopy 06-08-2005- negative except for some diverticula in the ascending colon, moderate diverticulosis in the sigmoid colon, and internal hemorrhoids Denies AZ,DM,CVA,Lung disease,renal disease HTN A.fib- had cardioversion in 2013- on Xarelto- sees Dr. Carnes Sigmoid diverticulitis in December of 2014-confirmed on CT scan-treated with outpatient antibiotics. Negative screening colonoscopy in 05/2015 Prostate cancer diagnosed Fall 2024- had a hormone shot and plan is to start XRT in early 2025 Hyperlipidemia Neuropathy of LLE Medical History Verified * Surgical History: Umbilical hernia repair 2000 Tonsillectomy Thoracic ascending aortic aneurysm with aortic valve replacement- bioprosthetic valve 12/2024 Right inguinal hernia Surgical History verified. * Hospitalization/Major Diagno stic Procedure: No Hospitalization Documented. Hospitalization Verified. * Family History: F ather: , diagnosed with Colon polyps, HTN (hypertension). M other: , diagnosed with Diabetes. F amily History Verified.. The patient relates that his father had colon polyps in his late 70's. No colorectal cancer. * Social History: T obacco Use: T obacco Use/Smoking A re you a: former smoker , How long has it been since you last smoked?: > 10 years. D rugs/Alcohol: A lcohol Screen D id you have a drink containing alcohol in the past year? N o, P oints 0 , I nterpretation N egative. M iscellaneous: M arital status: . 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 D rug/Alcohol: A DRISS-C (Standard) D id you have a drink containing alcohol in the past year? N o,?Points 0 , I nterpretation N egative. Social History Verified. N onsmoker; no alcohol. * Medications: T akingLisinopril 20 MG Tablet 1 tablet Orally Once a day Xarelto 20 MG Tablet 1 tablet with food Orally Once a day Metoprolol Tartrate 25 MG Tablet 1 tablet in the am and 2 in the pm Orally Twice a day Gabapentin 100 MG Capsule Oral Finasteride 5 MG Tablet TAKE 1 TABLET BY MOUTH EVERYDAY AT BEDTIME Oral Atorvastatin Calcium 40 MG Tablet TAKE 1 TABLET BY MOUTH EVERY DAY AT BEDTIME Oral Digoxin 125 MCG Tablet 1 tablet Orally Vitamin B Complex Taking Lisinopril 20 MG Tablet 1 tablet Orally Once a day Taking Xarelto 20 MG Tablet 1 tablet with food Orally Once a day Taking Metoprolol Tartrate 25 MG Tablet 1 tablet in the am and 2 in the pm Orally Twice a day Taking Gabapentin 100 MG Capsule Oral Taking Finasteride 5 MG Tablet TAKE 1 TABLET BY MOUTH EVERYDAY AT BEDTIME Oral Taking Atorvastatin Calcium 40 MG Tablet TAKE 1 TABLET BY MOUTH EVERY DAY AT BEDTIME Oral Taking Digoxin 125 MCG Tablet 1 tablet Orally Taking Vitamin B Complex Not-Taking/PRNAspir-81 81 MG Tablet Delayed Release 1 tablet Orally Once a day Colyte w Flavor Packs 240 GM Solution Reconstituted as directed Orally as directed Medication List reviewed and reconciled with the patientNot-Taking/PRN Aspir-81 81 MG Tablet Delayed Release 1 tablet Orally Once a day Not-Taking/PRN Colyte w Flavor Packs 240 GM Solution Reconstituted as directed Orally as directed Medication List reviewed and reconciled with the patient * Allergies: N .K.D.A.yesAllergies Verified. Objective: * Vitals: W t:207.8lbs, Ht: 70 in, BMI:29.81Index, BP:001/01mm Hg, Ht-cm: 177.8 cm, Wt-k.26 kg. Assessment: * Assessment: 1. C olon cancer screening - Z12.11 (Primary) 2 . L daniel term (current) use of anticoagulants - Z79.01 3 . P reprocedural examination - Z01.818 ? Overall, Keya appears well an d is not having any new or worrisome GI complaints. Given his age, good clinical appearance, and his negative colonoscopy over 10 years ago, I did recommend a follow-up colonoscopy for further screening purposes. The procedure will be squeezed in for him by early October such that it can be done prior to the initiation of his radiation treatments for the prostate cancer. We did review the rationale for the procedure in regard to colorectal cancer prevention. Full consent has been obtained for this, including risks of bleeding and perforation. The procedure will be done with monitored anesthesia care. He was given the below instructions regarding adjustment of his Xarelto for the procedure. Keya was comfortable with this plan. Thank you again for allowing me to participate in Keya's care. I shall continue to keep you advised of his progress. Plan: * Treatment: Notes: You need to be off the Xarelto for 2 full days before the colonoscopy?? * Preventive Medicine: Counseling: C are goal follow-up plan: A alex Normal BMI Follow-up D ietary management education, guidance, and counseling, B AZ management provided Josep zuniga. Screenings: F all Risk Screening F all Risk Assessment: N o falls in the past year, S creening: N o falls in the past year, P connor of Care: N ot documented, no reason specified. Billing Information: * Procedure Codes: * The named appointment provid er may or may not be the originator of this progress note, and it is not deemed complete until electronically signed by the appointment provider. Sign off status: Pending * Provider: Joshua Montague MD Date: 12/14/2024 Generated for Abdoulaye holt/Otis/Donitting on: 12/20/2024 08:10 AM EST
--- OUTSIDE RECORDS SUMMARY | 2025-10-19 08:11 | XMS_ITS | Encounter Summary ---
[facility] Address [address] [place] [address] Care Team Providers Care Service Transformer Repair Supervisor Name Role Phone Physician, Pcp Unknown Primary Care Provider Savannah vailable Encounter Details Date Type Department Care Team (Late st Contact Info) Description 07/29/2025 Lab Requisition [facility] - Main Lab [address] [facility] [place] [address] Jaiden Beaver MD [address] [place] [phone] Benign prostatic hyperplasia with lower urinary tract [...] (07/28/2025) Final Diagnosis A. Prostate, Left Middle Cornelia Biopsy: - Benign prostatic tissue. B. Prostate, Left Lateral Cornelia Biopsy: - Benign prostatic tissue. C. Prostate, Left Middle Middle Biopsy: - Benign prostatic tissue. D. Prostate, Left Lateral Middle Biopsy: - Benign prostatic tissue. E. Prostate, Left Middle Base Biopsy: - Benign prostatic tissue. F. Prostate, Left Lateral Base Biopsy: - Benign prostatic tissue. G. Prostate, Right Middle Cornelia Biopsy: - Benign prostatic tissue. H. Prostate, Right Lateral Cornelia Biopsy: - Benign prostatic tissue. I. Prostate, [...] acinar adenocarcinoma (conventional type), grade group 2 ([place] score 3+4=7). - Percentage pattern 4: 10%. - Tumor continuously involves 56% of 1 of 1 tissue core. M. Prostate, Right PZ Lesion Biopsy: - Prostatic acinar adenocarcinoma (conventional type), grade group 2 ([place] score 3+4=7). - Percentage pattern 4: 40%. - Tumor continuously involves 25% of overall tissue, present in 3 of 3 tissue cores. - Intraductal carcinoma is present. 07/31/2025 12:51 PM EDT [facility] at 1250 EDT Clinical Information Elevated PSA N40.1 PSA: 4.9 (05/21/25) [id number] 07/31/2025 12:51 PM EDT [facility] Gross Description A. Prostate, Left Middle Cornelia Biopsy: Received, properly labeled, are two H and E stained slides and two unstained slides. B. Prostate, Left Lateral Cornelia Biopsy: Received, properly labeled, are two H [...] two unstained slides. G. Prostate, Right Middle Cornelia Biopsy: Received, properly labeled, are two H and E stained slides and two unstained slides. H. Prostate, Right Lateral Cornelia Biopsy: Received, properly labeled, are two H [...] unstained slides. /al 07/31/2025 12:51 PM EDT [facility] Disclaimer Unless otherwise specified, all tissue is 10% NB formalin fixed and paraffin embedded. Technical pathology services provided by [facility] at [address] [place] [address] [address], [place] [address] (CLIA #[id number]/Sofi Liriano MD, Drywall Hanger Helper) 07/31/2025 12:51 PM EDT [facility] Tissue Prostate / Unknown [...] Beaver MD LAB PATHOLOGY ORDERABLES Final Result [facility] ([facility]) [facility] [address] [place] [address], [place] [phone] documented in this encounter Visit Diagnoses Diagnosis Benign prostatic hyperplasia with lower urinary tract symptoms documented in this encounter Care Teams Service Transformer Repair Supervisor Relationship Specialty Start Date End Date Physician, Pcp Unknown PCP - General 07/29/25 documented as of this encounter
--- OUTSIDE RECORDS SUMMARY | 2025-10-19 08:11 | XMS_ITS | Encounter Summary ---
Author Organization [facility] Address [address] [place] [address] Phone Care Team Providers Care Cloth Burler Name Role Phone Gloria Orourke MD Primary Care Provider [phone] Encounter Details Date Type Department Care Team (Late st Contact Info) Description 06/09/2021 Procedure Pass OR Admitting Dept - Virtual Department [address] [place] [address] Social History Tobacco Use Types Packs/Day Years [...] on filedocumented in this encounter Care Teams Cloth Burler Relationship Specialty Start Date End Date Gloria Orourke MD [address] [place] [phone] PCP - General Internal Medicine 06/03/21 documented as of this encounter Additional Source Comments The information contained in this document represents components of the legal health record. It is not the complete legal health record.[facility]
--- OUTSIDE RECORDS SUMMARY | 2025-10-19 08:11 | XMS_ITS | Clinical Summary ---
Author Organization [facility] Address [address] [facility] [address] [place] [phone] Phone Care Team Providers Care Guide Name Role Phone Gloria Orourke MD Primary Care Provider [phone] Allergies Active Allergy Reactions Criticality Noted Date [...] 07/20/2025 8:32 AM EDT Hospital Encounter [facility] [address] [place] [address] [id number] Elaine Gaming FNP 07/20/2025 8:10 AM EDT Office Visit [facility] at [address] [address] Elaine Gaming, SERVICE ENGINEER Acute pain of left knee (Primary [...] this topic Medical Devices Implanted Type Area Fbi Profiler Device Identifier Shelf Expiration Date Model / Serial / Lot Mesh Mesh Mesh Surgical 15cm 8 Hernia Prolene Polypropylene Nonabsorbable Repair Bx/6ea - [id number] Implanted:Qty: 1 on 06/09/2021 by Jomar Grimm MD at [facility] STANDARD Right: Inguinal JNJ ETHICON / DIVISION OF J 07/28/2025 [id number] / / [id number] Procedures Procedure Name [...] clinician's provided indication for this examination in [facility]: Pain; pain for 3 weeks with leg [...] Small knee joint effusion. us Elaine Gaming SERVICE ENGINEER IMG XR LOWER EXTREMITY Yue l Result * (ABNORMAL) Basic metabolic panel (06/03/2021 10:04 PM EDT) SODIUM 142 133 - 146 mmol/L [facility] CHLORIDE 106 96 - 108 mmol/L [facility] POTASSIUM 3.8 3.3 - 5.1 mmol/L [facility] Comment:Specimen slightly he molyzed, result may be falsely elevated. CO2 25 21 - 35 mmol/L [facility] BUN 24(H) 6 - 19 mg/dL [facility] CREATININE 0.90 0.5 - 1.5 mg/dL [facility] GLUCOSE 115(H) 70 - 99 mg/dL [facility] CALCIUM 10.0 8.4 - 10.3 mg/dL [facility] EGFR 84 >59 mL/min/1.7 3m2 [facility] Comment:Estimated glomerular filtration rate calculated using the CKD-EPI equation. ANION GAP 15 10 - 20 mmol/L [facility] Blood 06/03/2021 10:0 4 PM EDT 06/03/2021 10:18 PM EDT us Buster G Be DO LAB BLOOD BKR ORDERABLES Yue l Result [facility] [address] [place] [address] from Last 3 Months or Most Recently Relevant to Health Maintenance Insurance [employer] MEDEX SUPPLEMENT MEDICARE PART A & B [employer] MEDEX SUPPLEMENT MEDICARE PART A & B [employer] MEDEX SUPPLEMENT MEDICARE PART A & B [employer] MEDEX SUPPLEMENT MEDICARE PART A & B [facility] MEDEX SUPPLEMENT MEDICARE PART A & B [employer] MEDEX SUPPLEMENT MEDICARE PART A & B [employer] MEDEX SUPPLEMENT MEDICARE PART A & B Member Subscriber Plan / Payer (Ef fective 2014-Present) Name:Eric Ferreira Member ID:[id number] Relation to Subscriber:Self Name:SravaniEric brooks Subscriber ID:[id number] Payer ID:[id number] Group ID:Not on file Type:Medicare Address: [place] [employer] [address] [employer] MEDEX SUPPLEMENT MEDICARE PART A & B [employer] MEDEX SUPPLEMENT MEDICARE PART A & B Care Teams Guide Relationship Specialty Start Date End Date Gloria Orourke MD [address] [place] [address] [place] [phone] PCP - General Internal Medicine 06/03/21 Additional Source Comments The information contained in this document represents components of the legal health record. It is not the complete legal health record.[facility]
--- OUTSIDE RECORDS SUMMARY | 2025-10-19 08:11 | XMS_ITS | Clinical Summary ---
Author Organization [address] [facility] Address [address] [place] [address] Phone Care Team Providers Care Pipeliner Name Role Phone Physician, Pcp Unknown Primary Care Provider Savannah vailable Encounters Date Type Department Care Team Description 07/29/2025 Lab Requisition [facility] - Main Lab [address] [facility] [place] [address] Jaiden Beaver MD Benign prostatic [...] (07/28/2025) Final Diagnosis A. Prostate, Left Middle [place] Biopsy: - Benign prostatic tissue. B. Prostate, Left Lateral [place] Biopsy: - Benign prostatic tissue. C. Prostate, Left Middle Middle Biopsy: - Benign prostatic tissue. D. Prostate, Left Lateral Middle Biopsy: - Benign prostatic tissue. E. Prostate, Left Middle Base Biopsy: - Benign prostatic tissue. F. Prostate, Left Lateral Base Biopsy: - Benign prostatic tissue. G. Prostate, Right [place] Biopsy: - Benign prostatic tissue. H. Prostate, Right Lateral [place] Biopsy: - Benign prostatic tissue. I. Prostate, [...] carcinoma is present. 07/31/2025 12:51 PM EDT [facility] at 1250 EDT Clinical Information Elevated PSA N40.1 PSA: 4.9 (05/21/25) [id number] 07/31/2025 12:51 PM EDT [facility] Gross Description A. Prostate, Left [place] Biopsy: Received, properly labeled, are two H and E stained slides and two unstained slides. B. Prostate, Left Lateral [place] Biopsy: Received, properly labeled, are two H [...] two unstained slides. G. Prostate, Right Middle [place] Biopsy: Received, properly labeled, are two H and E stained slides and two unstained slides. H. Prostate, Right Lateral [place] Biopsy: Received, properly labeled, are two H [...] unstained slides. /al 07/31/2025 12:51 PM EDT [facility] Disclaimer Unless otherwise specified, all tissue is 10% NB formalin fixed and paraffin embedded. Technical pathology services provided by [facility] at [address], [place] [address] (CLIA #[id number]/Sofi Liriano MD, Box Toe Cementer) 07/31/2025 12:51 PM EDT [facility]) [facility] Tissue Prostate / Unknown [...] Beaver MD LAB PATHOLOGY ORDERABLES Final Result [facility]) [facility] [address] [place] [address], [place] [phone] from Last 3 Months Insurance MEDICARE [facility] Care Teams Pipeliner Relationship Specialty Start Date End Date Physician, Pcp Unknown PCP - General 07/29/25
--- OUTSIDE RECORDS SUMMARY | 2025-10-19 08:11 | XMS_ITS | Encounter Summary ---
Author Organization [facility] Address [address] [place] [address] Phone Care Team Providers Care Delinquent Account Clerk Name Role Phone Gloria Orourke MD Primary Care Provider [phone] Encounter Details Date Type Department Care Team (Late st Contact Info) Description 06/04/2021 Procedure Pass [place] Admitting Dept - Virtual Department [address] [place] [address] Social History Tobacco Use Types Packs/Day Years [...] on filedocumented in this encounter Care Teams Delinquent Account Clerk Relationship Specialty Start Date End Date Gloria Orourke MD [address] [place] [id number] PCP - General Internal Medicine 06/03/21 documented as of this encounter Additional Source Comments The information contained in this document represents components of the legal health record. It is not the complete legal health record.[facility]
--- OUTSIDE RECORDS SUMMARY | 2025-10-19 08:11 | XMS_ITS | Patient Health Record ---
Author Organization [facility] Address [address] [place] [address] Care Team Providers Care End Frazer Name Role Phone RUPINDER CANTU, [facility] Primary Care Provider Jim Fox [phone] Allergies No Known Allergies Reason For Referral No Information Medications Medication SIG (Take, Route, Frequency, Duration) Notes Start Date End Date Status Digoxin 125 MCG Tablet 1 tablet Orally; Duration: 30 day(s) 10/13/2025 Active Vitamin B Complex 10/13/2025 A ctive Aspir-81 81 MG Tablet Delayed Release 1 tablet Orally Once a day Not-Taking/PRN Colyte w Flavor Packs 240 GM Solution Reconstituted as directed Orally as directed; Duration: 1 day(s) 03/11/2015 Not-Taking/OH N Lisinopril 20 MG Tablet 1 tablet Orally Once a day Active Xarelto 20 MG Tablet 1 tablet with food Orally Once a day Active Metoprolol Tartrate 25 MG Tablet 1 [...] AT BEDTIME Oral; Duration: 30 Days Active Immunizations Vaccine Route Administration Date Status Comme nts Influenza Unknown 10/13/2024 Administered Social History Social History Drug/Alcohol: Social Info Question Answer Notes AUDIT-C (Standard) Did you have a drink containing alcohol in the past year? 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[employer] [place] Section Notes: Nonsmoker; no alcohol Nonsmoker; no alcohol Problems Problem Type SNOMED Code ICD Code Onset Dates Problem Status W/U Status Risk Notes Problem Colon cancer screening (096443333) Colon cancer screening (V76.51) Active confirmed Problem Diverticulitis of colon (456225199) Diverticulitis of colon (562.11) Active confirmed Problem Imaging of gastrointestinal tract abnormal (400577949) Abnormal CT scan, gastrointestinal tract (793.4) Active confirmed Problem Colon cancer screening (827119765) Colon cancer screening (Z12.11) Active confirmed Problem Long-term current use of anticoagulant (958807026) 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) Active confirmed Problem Preprocedural examination (916847213304572) Preprocedural examination (Z01.818) Active confirmed Vital Signs Blood pressure diastolic 01 mm Hg 10/13/2025 Height 70 in 10/13/2025 Blood pressure systolic 001 mm Hg 10/13/2025 Weight 207.8 lbs 10/13/2025 BMI 29.81 kg/m2 10/13/2025 Encounters Encounter Location Date Provider Diagnosis [facility] [address] [place] [phone] 10/13/2025 Jim Montague Colon cancer screeni ng Z12.11 ; skilled nursing (current) use of anticoagulants Z79.01 and Preprocedural examination Z01.818 [facility] [address] [place] [phone] 10/13/2025 Jim Montague Assessments Encounter Date Diagnosis (ICD Code) Assessment [...] keep you advised of his progress. 10/13/2025 dedicated intermodal truck driver (current) use of anticoagulants (ICD-10 - Z79.01) Overall, Keya appears well and is not [...] advised of his progress. Plan Of Treatment Future Test Test Name Order Date COLONOSCOPY 03/11/2015 COLONOSCOPY 10/13/2025 Next Appt Details Provider Name:Jim Montague , 10/30/2025 11:10:00 AM, [address] [place] [address] [place], [place], [id number], Insurance Providers Payer Name Payer Address Payer Phone Subscriber Number Group Number Insured Name Patient Relationship to Insured Coverage Start Date Coverage End Date MEDICARE OF [place] [address] [place] [id number] LUZ ANDRES Self - patient is the insured 3 [employer] ATTN CLAIMS [address] [place] [address] [id number] LUZ ANDRES Self - patient is the insured Medical (General) History Medical History History ICD Code Screening colonoscopy 005- negative except for some diverticula in the ascending colon, moderate diverticulosis in the sigmoid colon, and internal hemorrhoids Denies OR,DM,CVA,Lung disease,renal dise ase HTN A.fib- had cardioversion in 2013- on [place]- sees Dr. Carnes Sigmoid diverticulitis in [facility] of 2014-confirmed on CT scan-treated with outpatient antibiotics. 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
--- OUTSIDE RECORDS SUMMARY | 2025-10-19 08:11 | XMS_ITS | Patient Health Record ---
Author Organization [facility] Address [address] [facility] [address] [facility] [address] [place] [address] Support Name Relationship Address Phone Unavailable Emergency Contact Unknown Unavailabl e LUZ ANDRES Guarantor Unknown [phone] Reason For Referral No Information Plan Of Treatment No Information Insurance Providers Payer Name Payer Address Payer Phone Subscriber Number Group Number Insured Name Patient Relationship to Insured Coverage Start Date Coverage End Date DO NOT USE [employer] OF [place] [address] [place] [address] [id number] LUZ ANDRES Self - patient is the insured
--- NOTE | 2025-10-19 08:24 | A.OFFVIS_ITS ---
Intake Visit Reasons: Review per Sakshi Allergies vibegron (From [facility]) Allergy (Intermediate, Verified 09/22/25 08:08) Headache oxycodone Adverse Reaction (Verified 09/22/25 08:08) Confusion HPI Comments Details: 75 years old man who is presenting with left leg pain, numbness, and swelling. He reports that immediately following an open-heart surgery in December, which lasted 9.5 hours, he developed neuropathy in his entire left leg. Symptoms included pain (primarily in the knee but also radiating down to the toes), numbness, and swelling, which were so severe that he was unable to stay in bed and slept in a recliner for weeks. He was initially treated with gabapentin, starting at 100 mg three times a day and increasing to 300 mg four times a day, but this caused significant somnolence. His symptoms completely resolved by the third week of April, and he subsequently discontinued the gabapentin. The symptoms began to return in May and June, and by early July, they were fully back, primarily affecting the area from his knee downwards. His primary care provider restarted gabapentin, and he is currently taking 200 mg twice a day, which he feels is helping and the symptoms are almost gone. He continues to experience discomfort at night, sufficient to disrupt his sleep after 3-4 hours, prompting him to move to a recliner with his legs elevated for the rest of the night. He also notes a palpable lump and slight swelling on the inside of his leg. His past medical history is significant for a diagnosis of prostate cancer found during a checkup in April, for which he is scheduled to begin radiation therapy in October. He also reports some hearing loss. [facility] Medical History (Updated 10/19/25 @ 08:28 by Joann Anaya MD) Left leg pain Neuropathy Ascending aortic aneurysm Aortic regurgitation Chronic atrial fibrillation HTN (hypertension) Surgical History History of prostate biopsy History of open heart surgery History of hernia surgery History of tonsillectomy Family History (Updated 08/14/25 @ 10:08 by RANDAL Humphries) Father No problems noted. Mother Diabetes Social History Housing: House Alcohol intake: never Patient Tobacco Use Status: Former Tobacco user e-Cigarette/Vaping Use: Never Used Second Hand Smoke Exposure: Yes service: No Current occupational status: retired Cognitive needs: No Hearing needs: Yes (Hearing aide) Vision needs: Yes (Glasses) Review of Systems Narrative - Musculoskeletal: Reports pain, swelling, and a palpable lump in the left leg, primarily around the knee and extending to the foot. - Neurological: Reports numbness in the left leg. - Constitutional: Reports disturbed sleep due to leg discomfort. - Auditory: Reports hearing loss. Physical Exam Neuro Other: Mental Status: Alert and oriented to person, place, and time. Normal attention. Normal spontaneous speech, fluency, and comprehension. No obvious issues with mood and memory. Affect is appropriate. Cranial Nerves: CN II: Visual gibbons full to confrontation, visual acuity intact. CN III, IV, : Pupils equal, round, reactive to light and accommodation. Extraocular movements are normal. CN V: Facial sensation is normal. CN VII: Facial movements symmetrical. CN VIII: Hearing intact to bedside conversation is normal. CN IX, X: Palate elevates symmetrically. CN XI: Shoulder shrug and head turn symmetrical. CN XII: Tongue midline without atrophy or fasciculations. Motor: No focal arm or leg weakness. Deep tendon reflexes are 1+ in knees and absent in ankles with flexor plantars. Gait: Slightly cautious. Extrapyramidal: Full facial expressions and blinking. No rigidity. Movements are appropriate with no tremor or abnormality. Speech: Normal; no dysarthria or tremor. Extrem Other: Moderate left knee a minimal right knee swelling. There was slight deformity of left knee. Assessment & Plan Assessment & Plan (1) Left leg pain: Code(s): M79.605 - Pain in left leg Category: Medical (2) Neuropathy: Code(s): G62.9 - Polyneuropathy, unspecified Category: Medical (3) Peripheral neuropathy: Comment: EMG/NCS L leg at [facility] in 2024: Mod severe axonal SM PN Code(s): G62.9 - Polyneuropathy, unspecified Category: Medical Qualifiers: Peripheral neuropathy type: idiopathic neuropathy, unspecified Qualified Code(s): G60.9 - Hereditary and idiopathic neuropathy, unspecified Plan Impression: a: Left leg pain, which is mostly left knee pain with some radiation above and below the knee with features suggestive of osteoarthritis b: 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 I suspect that the prolonged immobility during his lengthy heart surgery triggered an inflammatory flare-up in the joint, which is why the symptoms appeared acutely post-operatively. I have ordered an X-ray of his knee to assess the severity of the arthritis. We discussed medication management, advising him to take his gabapentin (200- 300mg) only at bedtime, in combination with Tylenol 500mg, to help with nocturnal discomfort and sleep. I recommended using Tylenol for any daytime pain. I educated him on other treatment modalities, including cortisone injections for acute flares and knee replacement as a definitive surgical option, but we agreed to approach his care one step at a time, prioritizing his upcoming radiation therapy for prostate cancer. A follow-up visit will be scheduled to review the imaging results and further discuss the plan. Orders: Orders XR knee RT 2V Today M19.90 - Unspecified osteoarthritis, unspecified site XR knee LT 2V Today M19.90 - Unspecified osteoarthritis, unspecified site Coding Level of Care Code Est Pt Level 4 (38906) Diagnoses Left leg pain M79.605 Neuropathy G62.9 Idiopathic peripheral neuropathy G60.9 Peripheral neuropathy type: idiopathic neuropathy, unspecified
== END 2025-10-19 08:38 | disposition home or self-care (01) ==
LOC: HO.HSM 08:05
PROVIDERS: PCP Internal Medicine; Visit Provider Psychiatry & Neurology Neurology
DX: M79.605 Pain in left leg (principal); G62.9 Polyneuropathy, unspecified; G60.9 Hereditary and idiopathic neuropathy, unspecified
CPT/HCPCS: 99214

== ENCOUNTER → 2025-10-19 08:48 | Outpatient (BNV) | payer MEDICARE, SELFPAY | PROVIDERS: PCP Internal Medicine; Visit Provider Radiology Diagnostic Ultrasound | DX: M17.0 Bilateral primary osteoarthritis of knee (principal); M25.461 Effusion, right knee; M25.462 Effusion, left knee | CPT/HCPCS: 73560 ==